=== PATIENT | female | born 1960 | race Caucasian/White ===

== ENCOUNTER 2019-04-28 12:48 | Outpatient (CLI) | payer MEDICAID, SELFPAY ==
[2019-04-28 13:16] LABS: HCT 32.5 % (36.0-46.0); HGB 9.8 g/dL (12.0-15.5); Mean Corp. HGB Concentration 30.2 g/dL (32.0-36.0); Mean Corpuscular Hemoglobin 26.5 pg (27.0-33.0); Mean Corpuscular Volume 87.8 fL (80-95); Mean Platelet Volume 10.5 fL (8.0-11.0); Platelet Count 524 x1000/uL (130-400); RBC Distribution Width 25.3 % (11.7-14.6); White Blood Cell Count 5.96 k/cumm (4.4-10.8)
[2019-04-28 13:29] LABS: Hemoglobin A1C 4.1 % (3.8-5.6)
[2019-04-28 13:36] LABS: ALT 15 U/L (14-59); AST 30 U/L (15-37); Alkaline Phosphatase 68 U/L (46-116); Anion Gap 8.4 mmol/L (3-11); BUN 11 mg/dL (7-18); Bilirubin, Total 0.4 mg/dL (0.2-1.0); CO2 37.6 mmol/L (21.0-32.0); CREATININE 0.64 mg/dL (0.55-1.02); Calcium 8.6 mg/dL (8.5-10.1); Calculated LDL 112 mg/dL; Chloride 97 mmol/L (98-107); Cholesterol 186 mg/dL (<200); Glucose 90 mg/dL (74-106); HDL Cholesterol 53 mg/dL (40-60); Sodium 143 mmol/L (136-145); Total Protein 5.9 g/dL (6.4-8.2); Triglyceride 109 mg/dL (<150)
[2019-04-28 13:40] LABS: Potassium 2.8 mmol/L (3.5-5.1)
== END 2019-04-28 13:08 ==
PROVIDERS: PCP Nurse Practitioner; Visit Provider Family Medicine
DX: R53.83 Other fatigue (principal); Z13.6 Encounter for screening for cardiovascular disorders; Z13.220 Encounter for screening for lipoid disorders; Z13.1 Encounter for screening for diabetes mellitus
CPT/HCPCS: 36415; 80053; 80061; 85027; 83036

== ENCOUNTER 2019-04-29 11:08 | Outpatient (CLI) | payer MEDICAID, SELFPAY ==
[2019-04-29 13:47] LABS: Potassium 3.5 mmol/L (3.5-5.1)
== END 2019-04-29 11:28 ==
PROVIDERS: PCP Nurse Practitioner; Visit Provider Nurse Practitioner
DX: E87.6 Hypokalemia (principal)
CPT/HCPCS: 36415; 84132

== ENCOUNTER 2019-05-03 08:04 | Emergency (ER) | payer MEDICAID, SELFPAY ==
[2019-05-03] VITALS (97 sets, daily range): BP systolic 86–236; BP diastolic 54–214; PULSE 76–214; RESP 10–38; TEMP 32.1–36.2; O2SAT 79–100
--- NOTE | 2019-05-03 08:03 | W.ED.GENAD ---
Discharge Plan Disposition Patient Disposition: [facility] Condition: Critical Discharge Details Chief Complaint: AMS/LOC Clinical Impression: Hypothermia, Hypoglycemia, Lactic acidosis, Transaminitis, History of alcohol abuse Primary Care Provider: Chapis Siddiqui ED Provider: Lanette Murillo Home Meds and New Rx's Prescriptions: No Action potassium chloride 40 mEq/15 mL liquid 40 meq PO BID Qty: 30 RF: 0 Discharge Data Discharge Date/Time-TO BE ENTERED AT DEPARTURE: 05/03/19 16:12 Medical Decision Making 0810 -- 58-year-old female with a history of alcohol abuse presents from home for possible stroke alert. She was found in a closet by her father at home with multiple alcoholic bottles around. EMS reported possible right-sided weakness. BPs 60s/50s per EMS. Patient arrived to ED lethargic and drowsy but awake. Rectal temperature 89. Bedside glucose 40. Initially had small peripheral right-sided IV and wrist, too small to give D50 so oral glucose was given and patient appeared to clinically improve, more alert. She is extremely pale, cachectic and chronically ill-appearing. Multiple attempts at IVs and eventually successful with 2 peripheral IVs. Amp of D50 given. Banana bag, D5 started. Oanh hugger placed. Patient was able to track with eyes and appeared to be moving all extremities. Full septic and stroke panel ordered. Suspect presentation most likely due to profound dehydration and poor nutrition. 0900 --repeat glucose 67. Another amp of D50 given. She is able to follow some commands. She appears to be clinically improving. CT head and chest x-ray negative. Able to fully assess and turn patient in no obvious evidence of trauma. 0940 --Case discussed with brother in waiting room and he states that patient has been a heavy drinker for 30 years. He states that his father found multiple prescription bottles of his in patient's bedroom that were empty, one being a brand-new bottle of iron. Also able to determine that the other bottles that were mostly empty were gabapentin, probiotic, atorvastatin and lisinopril. Labs reviewed and noted hemoglobin 8.8, Cr 3, was normal the other day, AST 1292, ALT 500, elevated compared to normal 5 days ago. Lactate greater than 25. 1030 --discussed with poison control -recommend checking serum osmols, toxic alcohols and to give N-acetylcysteine Discussed with patient's father and he denies any known antifreeze. Was able to confirm that the iron was ferrous glycinate, 28 mg and states that the bottle was near full and that things only 11 tabs were missing. This was discussed with poison control who stated that this type of iron is a carbohydrate type which does not carry much toxicity other than GI symptoms such as diarrhea. Do not recommend treatment with deferoxamine at this time. Poison control has stated that iron levels less than 500 or less concerning and would suspect GI symptoms so this is reassuring. 1230 --discussed with [facility] critical care -accepts patient for transfer. Would like D5W with 3 A of bicarb. Accepting physician Dr. Gaona. Patient is more awake and alert. Oriented x3. Able to follow commands. 1400 --patient oriented x3. She denies alcohol use. She states she has been taking a lot of Tylenol. She is drowsy and very slow to respond to questions but airway intact. She cannot describe how much Tylenol she has been taking or for what. 1430 --[facility] does not have a medic available. Discussed with [facility] and they will come to get patient by around 4:00. Pt remains stable prior to transfer. Medical Records Medical records reviewed: Yes I reviewed the patient's medical records. Imaging Data Radiologic Study: Radiologist's impression: CT HEAD WO CLINICAL HISTORY: AMS. AMS TECHNIQUE: Imaging Protocol: Axial computed tomography images with coronal and sagittal reformatted images were created and reviewed COMPARISON: No exams were available for comparison FINDINGS: The ventricular system is normal in appearance. No evidence of acute intracranial hemorrhage, mass effect, or midline shift. The orbital structures are unremarkable. The temporal bone structures appear intact. Calvarium: Normal. Visualized Paranasal sinuses/Mastoids: Clear. IMPRESSION: Normal cranial CT. XR CHEST 2V PA LATERAL CLINICAL HISTORY: AMS AMS TECHNIQUE: 2D digital imaging was performed. COMPARISON: No exams were available for comparison FINDINGS: The heart is not enlarged. The lungs are clear and well expanded. No pleural effusion seen. Mediastinal contours appear intact. IMPRESSION: Normal chest Lab Data Lab results reviewed: Yes I reviewed the patient's lab results. Labs: 05/03/19 15:30 Blood Blood Culture - Pending 05/03/19 15:20 Blood Blood Culture - Pending 05/03/19 10:19 Urine - Reflex from Ua Urine Culture - Pending 05/03/19 10:19 Nasopharynx Influenza Types A,B Antigen - Final Laboratory Tests Range/Units 05/03/19 05/03/19 05/03/19 08:11 08:11 08:35 WBC (4.4-10.8) k/cumm RBC (4.00-5.20) m/cumm Hgb (12.0-15.5) g/dL Hct (36.0-46.0) % MCV (80-95) fL MCH (27.0-33.0) pg MCHC (32.0-36.0) g/dL RDW (11.7-14.6) % Plt Count (130-400) x1000/uL MPV (8.0-11.0) fL Immature Gran % Neutrophils % Lymphocytes % Monocytes % Eosinophils % Basophils % Absolute Neutrophils (1.2-6.7) k/cumm Absolute Lymphocytes (1.2-3.4) k/cumm Absolute Monocytes (0.11-0.7) k/cumm Absolute Eosinophils (0.0-0.7) k/cumm Absolute Basophils (0.0-0.2) k/cumm Differential Comment RBC Morphology Hypochromasia Poikilocytosis Anisocytosis Microcytosis Shamir Cells PT (9.3-11.0) sec INR (0.9-1.1) APTT (21.0-31.4) sec VBG pH (7.32-7.43) VBG pCO2 (34-47) mm/Hg VBG pO2 (28-44) mm/Hg VBG HCO3 (22-28) mmol/L VBG Total CO2 (22-29) mmol/L VBG O2 Saturation (70-80) % VBG Base Excess (-3-3) mmol/L Sodium (136-145) mmol/L 147 H Potassium (3.5-5.1) mmol/L 3.4 L Chloride (98-107) mmol/L 100 Carbon Dioxide (21.0-32.0) mmol/L 6.7 L Anion Gap (3-11) mmol/L 40.3 H BUN (7-18) mg/dL 17 Creatinine (0.55-1.02) mg/dL 3.43 H Estimated GFR/1.73 m2 (mL/min/1.73m2) 13.68 Glucose (74-106) mg/dL 42 L Lactate (0.6-1.4) mmol/L Calcium (8.5-10.1) mg/dL 9.4 Magnesium (1.8-2.4) mg/dL 2.2 Iron (50-170) ug/dL Total Bilirubin (0.2-1.0) mg/dL 1.2 H AST (15-37) U/L 1292 H ALT (14-59) U/L 500 H Alkaline Phosphatase (46-116) U/L 88 Ammonia Cancelled Creatine Kinase (26-192) U/L Troponin I (<0.06) ng/Ml 0.05 Total Protein (6.4-8.2) g/dL 5.0 L Albumin (3.4-5.0) g/dL 2.5 L TSH (0.36-3.74) uIU/mL 7.14 H Free T4 (0.76-1.46) ng/dL 1.53 H Urine Color (Yellow) Urine Clarity (Clear) Urine pH (5-8) Ur Specific [place] (1.005-1.025) Urine Protein (Negative) mg/dL Urine Ketones (Negative) mg/dL Urine Blood (Negative) Urine Nitrite (Negative) Urine Bilirubin (Negative) Urine Urobilinogen (Up TO 0.2) EU/dL Ur Leukocyte Esterase (Negative) Urine RBC (0-2) HPF Urine WBC (0-5) HPF Ur Epithelial Cells (Negative) HPF Urine Crystals (Negative) HPF Urine Bacteria (Negative) HPF Urine Casts (Negative) LPF Urine Mucus (Negative) Urine Other (Negative) Ur Culture Indicated? Urine Glucose (Negative) mg/dL Salicylates (2.8-20.0) mg/dL Urine Opiates Screen (Negative) Urine Methadone Screen (Negative) Acetaminophen (10-30) ug/mL Ur Barbiturates Screen (Negative) Ur Tricyclics Screen (Negative) Ur Amphetamines Screen (Negative) U Benzodiazepines Scrn (Negative) Urine Cocaine Screen (Negative) Ur THC Screen (Negative) Ethyl Alcohol Cancelled Patient ABO/Rh Antibody Screen Range/Units 05/03/19 05/03/19 05/03/19 08:35 08:35 08:35 WBC (4.4-10.8) k/cumm 16.44 H RBC (4.00-5.20) m/cumm 3.25 L Hgb (12.0-15.5) g/dL 8.8 L Hct (36.0-46.0) % 30.0 L MCV (80-95) fL 92.3 MCH (27.0-33.0) pg 27.1 MCHC (32.0-36.0) g/dL 29.3 L RDW (11.7-14.6) % 24.6 H Plt Count (130-400) x1000/uL 261 D MPV (8.0-11.0) fL Immature Gran % 0.5 Neutrophils % 90.5 Lymphocytes % 5.4 Monocytes % 3.5 Eosinophils % 0.0 Basophils % 0.1 Absolute Neutrophils (1.2-6.7) k/cumm 14.88 H Absolute Lymphocytes (1.2-3.4) k/cumm 0.89 L Absolute Monocytes (0.11-0.7) k/cumm 0.58 Absolute Eosinophils (0.0-0.7) k/cumm 0.00 Absolute Basophils (0.0-0.2) k/cumm 0.02 Differential Comment Diff reviewed RBC Morphology See below Hypochromasia 2+ Poikilocytosis 3+ Anisocytosis 3+ Microcytosis 1+ [place] Cells 2+ PT (9.3-11.0) sec 20.9 H INR (0.9-1.1) 2.1 H APTT (21.0-31.4) sec 28.0 VBG pH (7.32-7.43) VBG pCO2 (34-47) mm/Hg VBG pO2 (28-44) mm/Hg VBG HCO3 (22-28) mmol/L VBG Total CO2 (22-29) mmol/L VBG O2 Saturation (70-80) % VBG Base Excess (-3-3) mmol/L Sodium (136-145) mmol/L Potassium (3.5-5.1) mmol/L Chloride (98-107) mmol/L Carbon Dioxide (21.0-32.0) mmol/L Anion Gap (3-11) mmol/L BUN (7-18) mg/dL Creatinine (0.55-1.02) mg/dL Estimated GFR/1.73 m2 (mL/min/1.73m2) Glucose (74-106) mg/dL Lactate (0.6-1.4) mmol/L > 25.0 H* Calcium (8.5-10.1) mg/dL Magnesium (1.8-2.4) mg/dL Iron (50-170) ug/dL Total Bilirubin (0.2-1.0) mg/dL AST (15-37) U/L ALT (14-59) U/L Alkaline Phosphatase (46-116) U/L Ammonia Creatine Kinase (26-192) U/L Troponin I (<0.06) ng/Ml Total Protein (6.4-8.2) g/dL Albumin (3.4-5.0) g/dL TSH (0.36-3.74) uIU/mL Free T4 (0.76-1.46) ng/dL Urine Color (Yellow) Urine Clarity (Clear) Urine pH (5-8) Ur Specific [place] (1.005-1.025) Urine Protein (Negative) mg/dL Urine Ketones (Negative) mg/dL Urine Blood (Negative) Urine Nitrite (Negative) Urine Bilirubin (Negative) Urine Urobilinogen (Up TO 0.2) EU/dL Ur Leukocyte Esterase (Negative) Urine RBC (0-2) HPF Urine WBC (0-5) HPF Ur Epithelial Cells (Negative) HPF Urine Crystals (Negative) HPF Urine Bacteria (Negative) HPF Urine Casts (Negative) LPF Urine Mucus (Negative) Urine Other (Negative) Ur Culture Indicated? Urine Glucose (Negative) mg/dL Salicylates (2.8-20.0) mg/dL Urine Opiates Screen (Negative) Urine Methadone Screen (Negative) Acetaminophen (10-30) ug/mL Ur Barbiturates Screen (Negative) Ur Tricyclics Screen (Negative) Ur Amphetamines Screen (Negative) U Benzodiazepines Scrn (Negative) Urine Cocaine Screen (Negative) Ur THC Screen (Negative) Ethyl Alcohol Patient ABO/Rh Antibody Screen Range/Units 05/03/19 05/03/19 05/03/19 08:35 08:35 08:35 WBC (4.4-10.8) k/cumm RBC (4.00-5.20) m/cumm Hgb (12.0-15.5) g/dL Hct (36.0-46.0) % MCV (80-95) fL MCH (27.0-33.0) pg MCHC (32.0-36.0) g/dL RDW (11.7-14.6) % Plt Count (130-400) x1000/uL MPV (8.0-11.0) fL Immature Gran % Neutrophils % Lymphocytes % Monocytes % Eosinophils % Basophils % Absolute Neutrophils (1.2-6.7) k/cumm Absolute Lymphocytes (1.2-3.4) k/cumm Absolute Monocytes (0.11-0.7) k/cumm Absolute Eosinophils (0.0-0.7) k/cumm Absolute Basophils (0.0-0.2) k/cumm Differential Comment RBC Morphology Hypochromasia Poikilocytosis Anisocytosis Microcytosis [place] Cells PT (9.3-11.0) sec INR (0.9-1.1) APTT (21.0-31.4) sec VBG pH (7.32-7.43) 6.98 L VBG pCO2 (34-47) mm/Hg 24 L VBG pO2 (28-44) mm/Hg 67 H VBG HCO3 (22-28) mmol/L 6 L VBG Total CO2 (22-29) mmol/L 6 L VBG O2 Saturation (70-80) % 78 VBG Base Excess (-3-3) mmol/L Sodium (136-145) mmol/L Potassium (3.5-5.1) mmol/L Chloride (98-107) mmol/L Carbon Dioxide (21.0-32.0) mmol/L Anion Gap (3-11) mmol/L BUN (7-18) mg/dL Creatinine (0.55-1.02) mg/dL Estimated GFR/1.73 m2 (mL/min/1.73m2) Glucose (74-106) mg/dL Lactate (0.6-1.4) mmol/L Calcium (8.5-10.1) mg/dL Magnesium (1.8-2.4) mg/dL Iron (50-170) ug/dL Total Bilirubin (0.2-1.0) mg/dL AST (15-37) U/L ALT (14-59) U/L Alkaline Phosphatase (46-116) U/L Ammonia Creatine Kinase (26-192) U/L Troponin I (<0.06) ng/Ml Total Protein (6.4-8.2) g/dL Albumin (3.4-5.0) g/dL TSH (0.36-3.74) uIU/mL Free T4 (0.76-1.46) ng/dL Urine Color (Yellow) Urine Clarity (Clear) Urine pH (5-8) Ur Specific [place] (1.005-1.025) Urine Protein (Negative) mg/dL Urine Ketones (Negative) mg/dL Urine Blood (Negative) Urine Nitrite (Negative) Urine Bilirubin (Negative) Urine Urobilinogen (Up TO 0.2) EU/dL Ur Leukocyte Esterase (Negative) Urine RBC (0-2) HPF Urine WBC (0-5) HPF Ur Epithelial Cells (Negative) HPF Urine Crystals (Negative) HPF Urine Bacteria (Negative) HPF Urine Casts (Negative) LPF Urine Mucus (Negative) Urine Other (Negative) Ur Culture Indicated? Urine Glucose (Negative) mg/dL Salicylates (2.8-20.0) mg/dL 4.7 Urine Opiates Screen (Negative) Urine Methadone Screen (Negative) Acetaminophen (10-30) ug/mL 18 Ur Barbiturates Screen (Negative) Ur Tricyclics Screen (Negative) Ur Amphetamines Screen (Negative) U Benzodiazepines Scrn (Negative) Urine Cocaine Screen (Negative) Ur THC Screen (Negative) Ethyl Alcohol Patient ABO/Rh A Positive Antibody Screen Negative Range/Units 05/03/19 05/03/19 05/03/19 08:35 08:35 10:19 WBC (4.4-10.8) k/cumm RBC (4.00-5.20) m/cumm Hgb (12.0-15.5) g/dL Hct (36.0-46.0) % MCV (80-95) fL MCH (27.0-33.0) pg MCHC (32.0-36.0) g/dL RDW (11.7-14.6) % Plt Count (130-400) x1000/uL MPV (8.0-11.0) fL Immature Gran % Neutrophils % Lymphocytes % Monocytes % Eosinophils % Basophils % Absolute Neutrophils (1.2-6.7) k/cumm Absolute Lymphocytes (1.2-3.4) k/cumm Absolute Monocytes (0.11-0.7) k/cumm Absolute Eosinophils (0.0-0.7) k/cumm Absolute Basophils (0.0-0.2) k/cumm Differential Comment RBC Morphology Hypochromasia Poikilocytosis Anisocytosis Microcytosis Shamir Cells PT (9.3-11.0) sec INR (0.9-1.1) APTT (21.0-31.4) sec VBG pH (7.32-7.43) VBG pCO2 (34-47) mm/Hg VBG pO2 (28-44) mm/Hg VBG HCO3 (22-28) mmol/L VBG Total CO2 (22-29) mmol/L VBG O2 Saturation (70-80) % VBG Base Excess (-3-3) mmol/L Sodium (136-145) mmol/L Potassium (3.5-5.1) mmol/L Chloride (98-107) mmol/L Carbon Dioxide (21.0-32.0) mmol/L Anion Gap (3-11) mmol/L BUN (7-18) mg/dL Creatinine (0.55-1.02) mg/dL Estimated GFR/1.73 m2 (mL/min/1.73m2) Glucose (74-106) mg/dL Lactate (0.6-1.4) mmol/L Calcium (8.5-10.1) mg/dL Magnesium (1.8-2.4) mg/dL Iron (50-170) ug/dL 225 H Total Bilirubin (0.2-1.0) mg/dL AST (15-37) U/L ALT (14-59) U/L Alkaline Phosphatase (46-116) U/L Ammonia Creatine Kinase (26-192) U/L 157 Troponin I (<0.06) ng/Ml Total Protein (6.4-8.2) g/dL Albumin (3.4-5.0) g/dL TSH (0.36-3.74) uIU/mL Free T4 (0.76-1.46) ng/dL Urine Color (Yellow) Yellow Urine Clarity (Clear) Cloudy Urine pH (5-8) 5.0 Ur Specific [place] (1.005-1.025) 1.025 Urine Protein (Negative) mg/dL 30 H Urine Ketones (Negative) mg/dL 15 H Urine Blood (Negative) Small H Urine Nitrite (Negative) Negative Urine Bilirubin (Negative) Negative Urine Urobilinogen (Up TO 0.2) EU/dL 0.2 Ur Leukocyte Esterase (Negative) Negative Urine RBC (0-2) HPF Urine WBC (0-5) HPF 10-20 H Ur Epithelial Cells (Negative) HPF Few Urine Crystals (Negative) HPF Moderate amorphous Urine Bacteria (Negative) HPF Moderate Urine Casts (Negative) LPF Comment Urine Mucus (Negative) Negative Urine Other (Negative) Few renal Ur Culture Indicated? Yes Urine Glucose (Negative) mg/dL Negative Salicylates (2.8-20.0) mg/dL Urine Opiates Screen (Negative) Urine Methadone Screen (Negative) Acetaminophen (10-30) ug/mL Ur Barbiturates Screen (Negative) Ur Tricyclics Screen (Negative) Ur Amphetamines Screen (Negative) U Benzodiazepines Scrn (Negative) Urine Cocaine Screen (Negative) Ur THC Screen (Negative) Ethyl Alcohol Patient ABO/Rh Antibody Screen Range/Units 05/03/19 05/03/19 05/03/19 10:19 11:46 11:46 WBC (4.4-10.8) k/cumm RBC (4.00-5.20) m/cumm Hgb (12.0-15.5) g/dL Hct (36.0-46.0) % MCV (80-95) fL MCH (27.0-33.0) pg MCHC (32.0-36.0) g/dL RDW (11.7-14.6) % Plt Count (130-400) x1000/uL MPV (8.0-11.0) fL Immature Gran % Neutrophils % Lymphocytes % Monocytes % Eosinophils % Basophils % Absolute Neutrophils (1.2-6.7) k/cumm Absolute Lymphocytes (1.2-3.4) k/cumm Absolute Monocytes (0.11-0.7) k/cumm Absolute Eosinophils (0.0-0.7) k/cumm Absolute Basophils (0.0-0.2) k/cumm Differential Comment RBC Morphology Hypochromasia Poikilocytosis Anisocytosis Microcytosis [place] Cells PT (9.3-11.0) sec INR (0.9-1.1) APTT (21.0-31.4) sec VBG pH (7.32-7.43) VBG pCO2 (34-47) mm/Hg VBG pO2 (28-44) mm/Hg VBG HCO3 (22-28) mmol/L VBG Total CO2 (22-29) mmol/L VBG O2 Saturation (70-80) % VBG Base Excess (-3-3) mmol/L Sodium (136-145) mmol/L 145 Potassium (3.5-5.1) mmol/L 3.6 Chloride (98-107) mmol/L 99 Carbon Dioxide (21.0-32.0) mmol/L 7.0 L Anion Gap (3-11) mmol/L 39.0 H BUN (7-18) mg/dL 17 Creatinine (0.55-1.02) mg/dL 3.10 H Estimated GFR/1.73 m2 (mL/min/1.73m2) 15.38 Glucose (74-106) mg/dL 371 H D Lactate (0.6-1.4) mmol/L Calcium (8.5-10.1) mg/dL 9.4 Magnesium (1.8-2.4) mg/dL Iron (50-170) ug/dL Total Bilirubin (0.2-1.0) mg/dL 1.3 H AST (15-37) U/L 1353 H ALT (14-59) U/L 590 H Alkaline Phosphatase (46-116) U/L 96 Ammonia Creatine Kinase (26-192) U/L Troponin I (<0.06) ng/Ml 0.08 H* Total Protein (6.4-8.2) g/dL 5.1 L Albumin (3.4-5.0) g/dL 2.6 L TSH (0.36-3.74) uIU/mL Free T4 (0.76-1.46) ng/dL Urine Color (Yellow) Urine Clarity (Clear) Urine pH (5-8) Ur Specific [place] (1.005-1.025) Urine Protein (Negative) mg/dL Urine Ketones (Negative) mg/dL Urine Blood (Negative) Urine Nitrite (Negative) Urine Bilirubin (Negative) Urine Urobilinogen (Up TO 0.2) EU/dL Ur Leukocyte Esterase (Negative) Urine RBC (0-2) HPF Urine WBC (0-5) HPF Ur Epithelial Cells (Negative) HPF Urine Crystals (Negative) HPF Urine Bacteria (Negative) HPF Urine Casts (Negative) LPF Urine Mucus (Negative) Urine Other (Negative) Ur Culture Indicated? Urine Glucose (Negative) mg/dL Salicylates (2.8-20.0) mg/dL Urine Opiates Screen (Negative) Negative Urine Methadone Screen (Negative) Negative Acetaminophen (10-30) ug/mL Ur Barbiturates Screen (Negative) Negative Ur Tricyclics Screen (Negative) Negative Ur Amphetamines Screen (Negative) Negative U Benzodiazepines Scrn (Negative) Positive A Urine Cocaine Screen (Negative) Negative Ur THC Screen (Negative) Negative Ethyl Alcohol Patient ABO/Rh Antibody Screen Range/Units 05/03/19 05/03/19 05/03/19 11:46 11:46 11:46 WBC (4.4-10.8) k/cumm RBC (4.00-5.20) m/cumm Hgb (12.0-15.5) g/dL Hct (36.0-46.0) % MCV (80-95) fL MCH (27.0-33.0) pg MCHC (32.0-36.0) g/dL RDW (11.7-14.6) % Plt Count (130-400) x1000/uL MPV (8.0-11.0) fL Immature Gran % Neutrophils % Lymphocytes % Monocytes % Eosinophils % Basophils % Absolute Neutrophils (1.2-6.7) k/cumm Absolute Lymphocytes (1.2-3.4) k/cumm Absolute Monocytes (0.11-0.7) k/cumm Absolute Eosinophils (0.0-0.7) k/cumm Absolute Basophils (0.0-0.2) k/cumm Differential Comment RBC Morphology Hypochromasia Poikilocytosis Anisocytosis Microcytosis Sham[place] Cells PT (9.3-11.0) sec INR (0.9-1.1) APTT (21.0-31.4) sec VBG pH (7.32-7.43) VBG pCO2 (34-47) mm/Hg VBG pO2 (28-44) mm/Hg VBG HCO3 (22-28) mmol/L VBG Total CO2 (22-29) mmol/L VBG O2 Saturation (70-80) % VBG Base Excess (-3-3) mmol/L Sodium (136-145) mmol/L Potassium (3.5-5.1) mmol/L Chloride (98-107) mmol/L Carbon Dioxide (21.0-32.0) mmol/L Anion Gap (3-11) mmol/L BUN (7-18) mg/dL Creatinine (0.55-1.02) mg/dL Estimated GFR/1.73 m2 (mL/min/1.73m2) Glucose (74-106) mg/dL Lactate (0.6-1.4) mmol/L > 25.0 H* Calcium (8.5-10.1) mg/dL Magnesium (1.8-2.4) mg/dL Iron (50-170) ug/dL Total Bilirubin (0.2-1.0) mg/dL AST (15-37) U/L ALT (14-59) U/L Alkaline Phosphatase (46-116) U/L Ammonia 22 Creatine Kinase (26-192) U/L Troponin I (<0.06) ng/Ml Total Protein (6.4-8.2) g/dL Albumin (3.4-5.0) g/dL TSH (0.36-3.74) uIU/mL Free T4 (0.76-1.46) ng/dL Urine Color (Yellow) Urine Clarity (Clear) Urine pH (5-8) Ur Specific [place] (1.005-1.025) Urine Protein (Negative) mg/dL Urine Ketones (Negative) mg/dL Urine Blood (Negative) Urine Nitrite (Negative) Urine Bilirubin (Negative) Urine Urobilinogen (Up TO 0.2) EU/dL Ur Leukocyte Esterase (Negative) Urine RBC (0-2) HPF Urine WBC (0-5) HPF Ur Epithelial Cells (Negative) HPF Urine Crystals (Negative) HPF Urine Bacteria (Negative) HPF Urine Casts (Negative) LPF Urine Mucus (Negative) Urine Other (Negative) Ur Culture Indicated? Urine Glucose (Negative) mg/dL Salicylates (2.8-20.0) mg/dL Urine Opiates Screen (Negative) Urine Methadone Screen (Negative) Acetaminophen (10-30) ug/mL Ur Barbiturates Screen (Negative) Ur Tricyclics Screen (Negative) Ur Amphetamines Screen (Negative) U Benzodiazepines Scrn (Negative) Urine Cocaine Screen (Negative) Ur THC Screen (Negative) Ethyl Alcohol < 3.0 Patient ABO/Rh Antibody Screen Range/Units 05/03/19 05/03/19 13:14 13:14 WBC (4.4-10.8) k/cumm RBC (4.00-5.20) m/cumm Hgb (12.0-15.5) g/dL Hct (36.0-46.0) % MCV (80-95) fL MCH (27.0-33.0) pg MCHC (32.0-36.0) g/dL RDW (11.7-14.6) % Plt Count (130-400) x1000/uL MPV (8.0-11.0) fL Immature Gran % Neutrophils % Lymphocytes % Monocytes % Eosinophils % Basophils % Absolute Neutrophils (1.2-6.7) k/cumm Absolute Lymphocytes (1.2-3.4) k/cumm Absolute Monocytes (0.11-0.7) k/cumm Absolute Eosinophils (0.0-0.7) k/cumm Absolute Basophils (0.0-0.2) k/cumm Differential Comment RBC Morphology Hypochromasia Poikilocytosis Anisocytosis Microcytosis [place] Cells PT (9.3-11.0) sec INR (0.9-1.1) APTT (21.0-31.4) sec VBG pH (7.32-7.43) 7.12 L VBG pCO2 (34-47) mm/Hg 20 L VBG pO2 (28-44) mm/Hg 59 H VBG HCO3 (22-28) mmol/L 7 L VBG Total CO2 (22-29) mmol/L 7 L VBG O2 Saturation (70-80) % 80 VBG Base Excess (-3-3) mmol/L Sodium (136-145) mmol/L Potassium (3.5-5.1) mmol/L Chloride (98-107) mmol/L Carbon Dioxide (21.0-32.0) mmol/L Anion Gap (3-11) mmol/L BUN (7-18) mg/dL Creatinine (0.55-1.02) mg/dL Estimated GFR/1.73 m2 (mL/min/1.73m2) Glucose (74-106) mg/dL Lactate (0.6-1.4) mmol/L Calcium (8.5-10.1) mg/dL Magnesium (1.8-2.4) mg/dL Iron (50-170) ug/dL 216 H Total Bilirubin (0.2-1.0) mg/dL AST (15-37) U/L ALT (14-59) U/L Alkaline Phosphatase (46-116) U/L Ammonia Creatine Kinase (26-192) U/L Troponin I (<0.06) ng/Ml Total Protein (6.4-8.2) g/dL Albumin (3.4-5.0) g/dL TSH (0.36-3.74) uIU/mL Free T4 (0.76-1.46) ng/dL Urine Color (Yellow) Urine Clarity (Clear) Urine pH (5-8) Ur Specific [place] (1.005-1.025) Urine Protein (Negative) mg/dL Urine Ketones (Negative) mg/dL Urine Blood (Negative) Urine Nitrite (Negative) Urine Bilirubin (Negative) Urine Urobilinogen (Up TO 0.2) EU/dL Ur Leukocyte Esterase (Negative) Urine RBC (0-2) HPF Urine WBC (0-5) HPF Ur Epithelial Cells (Negative) HPF Urine Crystals (Negative) HPF Urine Bacteria (Negative) HPF Urine Casts (Negative) LPF Urine Mucus (Negative) Urine Other (Negative) Ur Culture Indicated? Urine Glucose (Negative) mg/dL Salicylates (2.8-20.0) mg/dL Urine Opiates Screen (Negative) Urine Methadone Screen (Negative) Acetaminophen (10-30) ug/mL Ur Barbiturates Screen (Negative) Ur Tricyclics Screen (Negative) Ur Amphetamines Screen (Negative) U Benzodiazepines Scrn (Negative) Urine Cocaine Screen (Negative) Ur THC Screen (Negative) Ethyl Alcohol Patient ABO/Rh Antibody Screen HPI General Mode of arrival: EMS. Date/Time Provider Initiated Documentation: 05/03/19 08:29. Limitations to Documentation: altered mental status and physical limitation. Information obtained by: EMS. HPI Narrative: Patient is a 58-year-old female with a history of alcohol abuse who presents for possible stroke alert from home. Per EMS, patient was found by her father in her closet with multiple alcohol bottles around. Unknown last normal. EMS noted hypotension with 60s/50s in route. It was reported that patient had right-sided weakness. Related Data Home Medications Medication Instructions Recorded Confirmed potassium chloride 40 mEq/15 mL 40 meq PO BID #30 ml 04/28/19 05/03/19 oral liquid Previous Rx's Medication Instructions Recorded potassium chloride 40 mEq/15 mL 40 meq PO BID #30 ml 04/28/19 oral liquid Allergies Allergy/AdvReac Type Severity Reaction Status Date / Time No Known Allergies Allergy Verified 05/03/19 10:47 Review of Systems Unobtainable due to mental status [facility], [facility] Medical History (Updated 05/03/19 @ 09:04 by Lanette Murillo DO) History of ETOH abuse (Inactive) Poor appetite (Inactive) Tobacco dependence (Inactive) Weight loss (Inactive) Surgical History No significant past surgical history (Acute) Family History Mother Diabetes Heart disease Hyperlipidemia Stroke Father Diabetes Heart disease Hyperlipidemia Brother Diabetes Heart disease Hyperlipidemia Grandfather No problems noted. Grandfather No problems noted. Grandmother No problems noted. Grandmother No problems noted. Social History Smoking/Tobacco Use Status: Current every day Tobacco Type: cigarettes Smoking packs per day: 2 Smoking cigarettes per day: 40.0 Alcohol Intake: current Alcohol Intake frequency: 3 or more drinks per day Drug use: Never Substance use type: does not use Exam Const General: cooperative, frail appearing and ill appearing chronically Orientation: awake, confused and other (drowsy) HENMT Head: normal to inspection Ears: hearing grossly normal bilaterally and external ears normal General nose exam: external nose normal Face and sinus: normal facial exam Mouth: mucous membranes dry Eyes General: appearance normal, both eyes and all related structures Eyelids: eyelids normal Pupils: PERRL EOM: EOM intact bilaterally Neck Neck: normal visual inspection Chest Chest: normal inspection of the chest Resp Effort & Inspection: normal respiratory effort and able to speak in complete sentences Auscultation: clear to auscultation bilaterally Cardio Rate: tachycardic Rhythm: regular rhythm GI Inspection: normal to inspection Palpation: soft, not firm, no guarding, no hepatosplenomegaly, no masses and nontender Auscultation: normal bowel sounds Skin General skin exam: no rashes or lesions noted Neuro General: awake and moves all extremities Extrem General: normal to inspection, full ROM and normal capillary refill Psych Appearance: grossly normal Mental Status: mental status grossly normal Speech and Movement: speech and movement normal Affect: normal affect Thought Process: normal Critical Care Time Critical Care Time Total Critical Care Time: 240 Attestation: I spent 240 minutes of critical care time with this patient. This does not include time spent on separately reported billable procedures.
[2019-05-03] MEDS: Normal Saline 1,000 ML 1000 ML IV (08:33)
[2019-05-03 08:51] LABS: HCO3 (Venous) 6 mmol/L (22-28); O2 Sat (Venous) 78 % (70-80); TCO2 (Venous) 6 mmol/L (22-29); pCO2 (Venous) 24 mm/Hg (34-47); pO2 (Venous) 67 mm/Hg (28-44)
[2019-05-03 08:53] LABS: Abs Immature Grans 0.09 k/cumm (0.0-0.09); Absolute Lymphocyte Count 0.89 k/cumm (1.2-3.4); Absolute Monocyte Count 0.58 k/cumm (0.11-0.7); Basophils % 0.1; HGB 8.8 g/dL (12.0-15.5); Immature Grans % 0.5; Lymphocytes % 5.4; Mean Corp. HGB Concentration 29.3 g/dL (32.0-36.0); Mean Corpuscular Hemoglobin 27.1 pg (27.0-33.0); Mean Corpuscular Volume 92.3 fL (80-95); Monocytes % 3.5; RBC 3.25 m/cumm (4.00-5.20); RBC Distribution Width 24.6 % (11.7-14.6); White Blood Cell Count 16.44 k/cumm (4.4-10.8)
--- NOTE | 2019-05-03 08:57 | DI.CT_ITS ---
EXAM: CT HEAD WO CT HEAD WO CLINICAL HISTORY: AMS. AMS TECHNIQUE: Imaging Protocol: Axial computed tomography images with coronal and sagittal reformatted images were created and reviewed COMPARISON: No exams were available for comparison FINDINGS: The ventricular system is normal in appearance. No evidence of acute intracranial hemorrhage, mass effect, or midline shift. The orbital structures are unremarkable. The temporal bone structures appear intact. Calvarium: Normal. Visualized Paranasal sinuses/Mastoids: Clear. IMPRESSION: Normal cranial CT. DATA REPOSITORY: All CT scans at this facility are submitted to the National Radiology Data Registry (NRDR) Dose Index Registry (DIR) with the [employer] (ACR). RADIATION OPTIMIZATION: All CT scans at this facility use at least one of these dose optimization te chniques: automated exposure control; mA and/or kV adjustment per patient size (includes targeted exa ms where dose is matched to clinical indication); or iterative reconstruction.
[2019-05-03 09:00] LABS: pH (Venous) 6.98 (7.32-7.43)
--- NOTE | 2019-05-03 09:00 | DI.RAD_ITS ---
EXAM: XR CHEST 2V PA LATERAL XR CHEST 2V PA LATERAL CLINICAL HISTORY: AMS AMS TECHNIQUE: 2D digital imaging was performed. COMPARISON: No exams were available for comparison FINDINGS: The heart is not enlarged. The lungs are clear and well expanded. No pleural effusion seen. Mediastin al contours appear intact. IMPRESSION: Normal chest
[2019-05-03 09:02] LABS: Lactate > 25.0 mmol/L (0.6-1.4)
[2019-05-03 09:03] LABS: Absolute Basophil Count 0.02 k/cumm (0.0-0.2); Absolute Neutrophil Count 14.88 k/cumm (1.2-6.7)
[2019-05-03 09:11] LABS: INR 2.1 (0.9-1.1); Prothrombin Time 20.9 sec (9.3-11.0)
[2019-05-03 09:13] LABS: Neutrophils % 90.5; Platelet Count 261 x1000/uL (130-400)
[2019-05-03] MEDS: MAGNESIUM SULFATE 8.12 MEQ, MULTIVITAMIN 10 ML, THIAMINE 100 MG, FOLIC ACID 1 MG in Nor... 168.867 MG IV (09:13)
[2019-05-03 09:14] LABS: Anisocytosis 3+; Burr Cells (echinocyte) 2+; Diff Comment Diff Reviewed; Hypochromasia 2+; Microcytosis 1+
[2019-05-03 09:15] LABS: Poikilocytes 3+
--- NOTE | 2019-05-03 09:16 | NUR.NOTE ---
08:03 Patient arrives via rescue pale, lethargic and skin cold to touch. Placed on monitor showing sinus tach with PAC's. Unsure last known well. Patient not speaking, but moaning. 20 G IV started in right wrist by Chichi Braxton RN. 08:13 rectal temp obtained 89.7 F Oanh hugger placed on high. Pupils 2mm and non-reactive. POC glucose 47 rechecked and found to be 41 oral glucose given and D5 normal saline started at 125cc/hr as per Dr. Murillo. 18 G IV started upper left arm by Dr. Murillo with use of ultrasound. 08:43 Amp D50 given IV by Chichi Braxton RN as per verbal order Dr. Murillo. Patient returned from CT. Placed back on Oanh Hugger. 09:15 Blood glucose 67 second amp D50 given By sign writer hand per verbal order Dr. Murillo. 09:25 Temp recheck 97.2 rectal. Care taken over by Chichi Braxton RN.
[2019-05-03 09:33] LABS: Albumin 2.5 g/dL (3.4-5.0); Alkaline Phosphatase 88 U/L (46-116); Anion Gap 40.3 mmol/L (3-11); BUN 17 mg/dL (7-18); Bilirubin, Total 1.2 mg/dL (0.2-1.0); CO2 6.7 mmol/L (21.0-32.0); CREATININE 3.43 mg/dL (0.55-1.02); Calcium 9.4 mg/dL (8.5-10.1); Chloride 100 mmol/L (98-107); Estimated GFR 13.68 (mL/min/1.73m2); Glucose 42 mg/dL (74-106); Magnesium 2.2 mg/dL (1.8-2.4); Potassium 3.4 mmol/L (3.5-5.1); Sodium 147 mmol/L (136-145); TSH (W/Ref FT4) 7.14 uIU/mL (0.36-3.74); Troponin I 0.05 ng/Ml (<0.06)
[2019-05-03 09:36] LABS: AST 1292 U/L (15-37)
--- NOTE | 2019-05-03 09:43 | NUR.NOTE ---
1st note documented at 0828 hours at 41 bgl not at 0928 crf
[2019-05-03] MEDS: DEXTROSE 5%-LACTATED RINGERS 1,000 ML 100 ML IV (09:58)
[2019-05-03 10:14] LABS: FREE T4 1.53 ng/dL (0.76-1.46)
[2019-05-03] MEDS: LORazepam 2 MG/ML VIAL 0.5 MG IVP (10:22)
[2019-05-03 10:25] LABS: Acetaminophen 18 ug/mL (10-30); Iron 225 ug/dL (50-170); Salicylate 4.7 mg/dL (2.8-20.0)
[2019-05-03 10:30] LABS: ALT 500 U/L (14-59)
[2019-05-03 10:36] LABS: Bilirubin Negative (Negative); Blood Small (Negative); Clarity Cloudy (Clear); Glucose Negative (Negative); Ketones 15 mg/dL (Negative); Leukocyte Esterase Negative (Negative); Nitrite Negative (Negative); Specific Gravity 1.025 (1.005-1.025); Urobilinogen 0.2 EU/dL (Up TO 0.2)
[2019-05-03 10:54] LABS: Bacteria Moderate HPF (Negative); Crystals Moderate Amorphous HPF (Negative); Epithelial Cells Few HPF (Negative); Mucus Negative (Negative); Other Cells Few Renal (Negative)
[2019-05-03 10:55] LABS: C & S Indicated? Yes
[2019-05-03 11:06] LABS: *AMPHETAMINES SCREEN URINE Negative (Negative); *BARBITURATES SCREEN URINE Negative (Negative); *BENZODIAZEPINES SCREEN URINE POSITIVE (Negative); Cannabinoids THC Negative (Negative); Cocaine Screen,Urine Negative (Negative); METHADONE URINE SCREEN Negative (Negative); OPIATES URINE SCREEN Negative (Negative)
[2019-05-03 11:09] LABS: Tricyclic Antidepressants Negative (Negative)
[2019-05-03 11:52] LABS: Creatine Kinase 157 U/L (26-192)
[2019-05-03 12:05] LABS: Lactate > 25.0 mmol/L (0.6-1.4)
[2019-05-03 12:36] LABS: Albumin 2.6 g/dL (3.4-5.0); Alkaline Phosphatase 96 U/L (46-116); BUN 17 mg/dL (7-18); Bilirubin, Total 1.3 mg/dL (0.2-1.0); Calcium 9.4 mg/dL (8.5-10.1); Chloride 99 mmol/L (98-107); Estimated GFR 15.38 (mL/min/1.73m2); Glucose 371 mg/dL (74-106); Potassium 3.6 mmol/L (3.5-5.1); Sodium 145 mmol/L (136-145); Total Protein 5.1 g/dL (6.4-8.2)
[2019-05-03 12:43] LABS: Ammonia 22 umol/L (11-32)
[2019-05-03 12:44] LABS: ETHANOL BLOOD < 3.0 mg/dL (<3)
[2019-05-03 12:45] LABS: AST 1353 U/L (15-37)
[2019-05-03 12:48] LABS: Troponin I 0.08 ng/Ml (<0.06)
[2019-05-03 12:51] LABS: ALT 590 U/L (14-59)
--- NOTE | 2019-05-03 13:12 | DI.RAD_ITS ---
EXAM: XR ABDOMEN FLAT UPRIGHT CLINICAL HISTORY: assess for iron/radioopaque substance TECHNIQUE: COMPARISON: No exams were available for comparison FINDINGS: Four views were obtained. Bowel gas pattern is unremarkable. No metallic foreign body or ingested material identified. IMPRESSION:
[2019-05-03 13:22] LABS: HCO3 (Venous) 7 mmol/L (22-28); O2 Sat (Venous) 80 % (70-80); TCO2 (Venous) 7 mmol/L (22-29); pCO2 (Venous) 20 mm/Hg (34-47); pH (Venous) 7.12 (7.32-7.43); pO2 (Venous) 59 mm/Hg (28-44)
[2019-05-03] MEDS: MAGNESIUM SULFATE 8.12 MEQ, MULTIVITAMIN 10 ML, THIAMINE 100 MG, FOLIC ACID 1 MG in Nor... 167 MG IV (13:31)
[2019-05-03] MEDS: SODIUM BICARBONATE 150 MEQ in DEXTROSE 5%-WATER 850 ML 100 MEQ IV (13:36)
[2019-05-03] MEDS: Lactated Ringers 1,000 ML 1000 ML IV ×2 (13:40→15:44)
[2019-05-03 13:49] LABS: Iron 216 ug/dL (50-170)
--- NOTE | 2019-05-03 23:28 | DI.RAD_ITS ---
EXAM: XR PORTABLE CHEST AP CLINICAL HISTORY: assess R IJ line TECHNIQUE: COMPARISON: XR CHEST 2V PA LATERAL from 05/03/2019 FINDINGS: There is an apparent internal jugular catheter the tip of which overlies the superior vena cava. He art is not enlarged. The lungs are clear and normally expanded. IMPRESSION: No evidence of acute process.
[2019-05-04 03:50] LABS: Ethanol None Detected ((See Note)); Isopropanol <5 mg/dL (<5)
[2019-05-04 11:54] LABS: Osmolality Serum 304 mOsm/kg (275-295)
[2019-05-05 08:51] LABS: Acetone Detected ((See Note))
--- NOTE | 2019-05-08 18:13 | NUR.NOTE ---
Patient transferred to [address] Final blood culture result faxed to [phone] Note:
== END 2019-05-03 16:12 | disposition short-term general hospital (02) ==
PROVIDERS: Physician Assistant; Emergency Provider Physician Assistant; PCP Nurse Practitioner
DX: T68.XXXA Hypothermia, initial encounter (principal); X31.XXXA Exposure to excessive natural cold, initial encounter; E16.2 Hypoglycemia, unspecified; R64 Cachexia; G81.91 Hemiplegia, unspecified affecting right dominant side; E87.2 Acidosis; R74.0 Nonspecific elevation of levels of transaminase and lactic acid dehydrogenase [LDH]; F10.20 Alcohol dependence, uncomplicated
CPT/HCPCS: 36410; 36415; 36416; 51702; 80053; 80307; 82550; 82805; 82962; 86850; 86900; 86901; 87040; 87449; 93005; 96361; 96365; 96366; 96368; 99291; 99292; 36010; 70450; 71045; 71046; 74019; 80320; 80329; 81003; 81015; 82140; 83540; 83605; 83735; 83930; 84439; 84443; 84484; 84600; 85025; 85610; 85730; 87086; 93010; J0132; J2060; J7060

== ENCOUNTER 2019-07-01 10:36 | Emergency (ER) | payer MEDICAID, SELFPAY ==
[2019-07-01 10:39] VITALS: BP 110/69; PULSE 104; RESP 18; TEMP 37.1; O2SAT 97
--- NOTE | 2019-07-01 11:02 | ED.GENADUL_ITS ---
Discharge Plan Disposition Patient Disposition: HOME Condition: Stable Discharge Details Chief Complaint: GenMedical Clinical Impression: Neck pain, Falls Primary Care Provider: Chapis Siddiqui ED Provider: Romero Seth Home Meds and New Rx's Prescriptions: Continued carvedilol 6.25 mg tablet 6.25 mg PO BID RF: 0 duloxetine 60 mg capsule,delayed release(DR/EC) 60 mg PO DAILY RF: 0 folic acid 1 mg tablet 1 mg PO DAILY RF: 0 melatonin 3 mg tablet 3 mg PO HS PRNRF: 0 mirtazapine 7.5 mg tablet 7.5 mg PO QHS RF: 0 uizoyauw-vrql-EZ-calcium-mins 9 mg iron-400 mcg tablet 1 tab PO DAILY RF: 0 thiamine HCl (vitamin B1) 100 mg tablet 100 mg PO DAILY RF: 0 quetiapine 50 mg tablet 50 mg PO DAILY Qty: 30 RF: 11 Discharge Instructions Instructions: Fall Prevention (ED) Additional Instructions: follow up with your primary care provider within 1-2 weeks if you develop severe worsening pain, fevers, or difficulty breathing or feel more ill return to the emergency department Medical Decision Making 58 yo female with former alcohol use disorder, htn, who was hospitalized at [facility] for multiple weeks s/p tylenol overdose and alcohol overdose and went home 2 weeks ago and comes in today with mild posterior head pain and left lateral neck pain after several falls where she states she tripped. Denies presyncope symptoms such as dizzy/lightheaded, chest pain, headaches prior to falling, shortness of breath. She has no significant traumatic findingson exam, full rom of the extremities. Given her fall and head/neck pain will image head and c spine. She states she gets home health and doesn't want inpatient rehab at this time no acute findings per Dr. Cornell on imaging, remains stable and well with no midline neck pain and no numbness on exam or weakness in the arms or legs. Will d/c home and have her f/u with pcp, return precautions given Differential Diagnosis Differential Diagnosis: deconditioning, orthostasis, mechanical fall, syncope Imaging Data Radiologic Study: Attestation: I personally reviewed and interpreted this imaging study as follows: Imaging: CT Scan Radiologist's impression: no acute findings HPI General Mode of arrival: wheelchair . Date/Time Provider Initiated Documentation: 07/01/19 10:37 . Limitations to Documentation: no limitations . Information obtained by: patient . History of Present Illness 58 year old F presents to the emergency department with the chief complaint of head and neck pain, described as mild, Quality is described as aching, and it has been constant. No relieving factors improve symptom(s), No exacerbating factors reported . Patient did receive the following treatments prior to arrival, none Related Data Home Medications Medication Instructions Recorded Confirmed carvedilol 6.25 mg tablet 6.25 mg PO BID 06/23/19 06/23/19 duloxetine 60 mg capsule,delayed 60 mg PO DAILY 06/23/19 06/23/19 release folic acid 1 mg tablet 1 mg PO DAILY 06/23/19 06/23/19 melatonin 3 mg tablet 3 mg PO HS PRN 06/23/19 06/23/19 mirtazapine 7.5 mg tablet 7.5 mg PO QHS 06/23/19 06/23/19 multivitamin-iron 9 mg-folic acid 1 tab PO DAILY 06/23/19 06/23/19 400 mcg-calcium and minerals tablet quetiapine 50 mg tablet 50 mg PO DAILY #30 tab 06/23/19 06/23/19 thiamine HCl (vitamin B1) 100 mg 100 mg PO DAILY 06/23/19 06/23/19 tablet Previous Rx's Medication Instructions Recorded quetiapine 50 mg tablet 50 mg PO DAILY #30 tab 06/23/19 Allergies Allergy/AdvReac Type Severity Reaction Status Date / Time No Known Allergies Allergy Verified 06/23/19 13:01 General Stated Complaint: GenMedical LILIYA: 3 Review of Systems All systems reviewed & are unremarkable except as noted in HPI and below Constitutional Constitutional: Denies chills and Denies fever(s) Cardiovascular Cardiovascular: Denies chest pain and Denies dyspnea Respiratory Respiratory: Denies cough and Denies dyspnea Gastrointestinal Gastrointestinal: Denies abdominal pain, Denies nausea and Denies vomiting Musculoskeletal Musculoskeletal: Denies joint swelling Psychiatric Psychiatric: Denies depression [facility] Medical History (Updated 07/01/19 @ 11:40 by Romero Seth MD) History of ETOH abuse (Inactive) Poor appetite (Inactive) Tobacco dependence (Inactive) Weight loss (Inactive) Social History Smoking/Tobacco Use Status: Current every day Tobacco Type: cigarettes Smoking packs per day: 2 Smoking cigarettes per day: 40.0 Alcohol Intake: current Alcohol Intake frequency: 3 or more drinks per day Drug use: Never Substance use type: does not use Do you feel safe at home: Yes Exam Const General: no acute distress Orientation: alert HENMT Head: normal to inspection Ears: external ears normal General nose exam: external nose normal Mouth: moist mucous membranes Eyes General: appearance normal, both eyes and all related structures Neck Neck: normal visual inspection Resp Effort & Inspection: normal respiratory effort and able to speak in complete sentences Cardio Rate: regular rate Skin General skin exam: no rashes or lesions noted Neuro General: alert and oriented x3 Extrem General: normal to inspection Psych Mental Status: mental status grossly normal Course Vital Signs Vital signs: Vital Signs Temperature 37.1 C 07/01/19 10:39 Pulse 104 H 07/01/19 10:39 Respiratory Rate 18 07/01/19 10:39 Blood Pressure 110/69 07/01/19 10:39 Pulse Oximetry 97 07/01/19 10:39 Temperature 37.1 C 07/01/19 10:39 Temperature Source Skin 07/01/19 10:39 Pulse 104 H 07/01/19 10:39 Respiratory Rate 18 07/01/19 10:39 Respiratory Effort 07/01/19 10:44 Blood Pressure 110/69 07/01/19 10:39 Blood Pressure Position Sitting 07/01/19 10:39 Pulse Oximetry 97 07/01/19 10:39 Oxygen Delivery Method Room Air 07/01/19 10:39 Oxygen Flow Rate 0 07/01/19 10:39 Pain Level 6 07/01/19 10:39
[2019-07-01 11:11] VITALS: RESP 14
--- NOTE | 2019-07-01 11:21 | DI.CT_ITS ---
EXAM: CT HEAD CERVICAL SPINE WO CLINICAL HISTORY: pain s/p fall TECHNIQUE: Noncontrast COMPARISON: CT HEAD WO from 05/03/2019 FINDINGS: Head CT: No intracranial hemorrhage, mass or infarct is seen. There is no evidence of skull fractu re. The ventricles are normal in size. The sinuses and mastoid air cells appear clear. The orbits are unremarkable as visualized. There has been no change from the previous exam. C-spine CT: No evidence of fracture or subluxation. Degenerative disc changes are seen at C5-6 and C 6-7. The airway appears intact. Mild emphysematous changes are seen at the lung apices. No pneumot horax is seen. IMPRESSION: No acute abnormality in the head or cervical spine.
== END 2019-07-01 11:52 | disposition home or self-care (01) ==
PROVIDERS: Emergency Provider Emergency Medicine; PCP Nurse Practitioner
DX: M54.2 Cervicalgia (principal); R29.6 Repeated falls; I10 Essential (primary) hypertension
CPT/HCPCS: 99284; 70450; 72125

== ENCOUNTER 2019-12-08 19:02 | Outpatient (REF) | payer MEDICAID, SELFPAY ==
[2019-12-08 19:22] LABS: HCT 36.3 % (36.0-46.0); HGB 11.9 g/dL (11.2-15.7); MCH 29.5 pg (27.0-33.0); MCHC 32.8 % (32.0-36.0); MCV 89.9 fL (80-95); MPV 10.2 fL (8.0-11.0); Platelet Count 320 10^3/uL (130-400); RBC 4.04 10^6/uL (3.93-5.22); RDW-SD 42.1 fL; WBC 8.86 10^3/uL (4.4-10.8)
[2019-12-08 19:43] LABS: ALT 19 U/L (14-59); AST 14 U/L (15-37); Albumin 3.3 g/dL (3.4-5.0); Alkaline Phosphatase 113 U/L (46-116); BUN 6 mg/dL (7-18); Bilirubin, Total 0.2 mg/dL (0.2-1.0); CREATININE 0.64 mg/dL (0.55-1.02); Calcium 8.4 mg/dL (8.5-10.1); Chloride 103 mmol/L (98-107); Glucose 77 mg/dL (74-106); Potassium 3.6 mmol/L (3.5-5.1); Sodium 142 mmol/L (136-145); TSH 18.63 uIU/mL (0.36-3.74); Total Protein 6.4 g/dL (6.4-8.2)
== END 2019-12-08 19:22 ==
LOC: LBN 19:02
PROVIDERS: PCP Nurse Practitioner; Visit Provider Nurse Practitioner
DX: I10 Essential (primary) hypertension (principal); D64.9 Anemia, unspecified; R79.89 Other specified abnormal findings of blood chemistry
CPT/HCPCS: 80053; 85027; 84443

== ENCOUNTER 2019-12-11 14:27 | Outpatient (REF) | payer MEDICAID, SELFPAY ==
[2019-12-13 11:16] LABS: Campylobacter PCR Negative (Negative); Salmonella PCR Negative (Negative); Shiga Toxin PCR Negative (Negative); Shigella/Enteroinvasive Ecoli Negative (Negative)
== END 2019-12-11 14:47 ==
LOC: LBN 14:27
PROVIDERS: PCP Nurse Practitioner; Visit Provider Nurse Practitioner
DX: R19.7 Diarrhea, unspecified (principal)
CPT/HCPCS: 87505; 87324

== ENCOUNTER 2020-01-30 01:28 | Outpatient (CLI) | payer MEDICAID, SELFPAY ==
--- NOTE | 2020-01-30 08:00 | DI.MAMMO_ITS ---
EXAM: MAMMO SCREENING CLINICAL HISTORY: screening,Z12.39 TECHNIQUE: Mammograms were interpreted according to the usual protocol including computer analysis w [employer] CAD system, tomosynthesis and C-view imaging. COMPARISON: 2009 FINDINGS: The breasts are composed of heterogeneously dense fibroglandular densities, Breast Density category C . No suspicious masses or suspicious microcalcifications are seen. No skin thickening or abnormal axillary lymph nodes are seen. There has been no significant change from prior exams. IMPRESSION: BI-RADS Category 1: Negative mammogram Yearly screening mammography is recommended. Breast Density - Category C, heterogeneously dense tissue which decreases the sensitivity of the mamm ogram. The mammogram demonstrates the patient's breast tissue is dense. Dense breast tissue is very common a nd is not abnormal but dense breast tissue can make it harder to find cancer on a mammogram. Also, de nse breast tissue may increase breast cancer risk. This information about the result of the mammogram report was provided to the patient to raise their awareness. Use this report when you speak with the patient about their risks for breast cancer, which includes their family history. At that time, you may recommend additional screening tests (Ultrasound or MRI) as they might be useful based on their r isk. A negative radiographic report should not delay biopsy if a dominant or clinically suspicious mass is present. Up to ten percent of cancers are not identified on mammography. A negative report may reinforce clinical impression. Adenosis and dense breasts may obscure an underlying neoplasm. False positive reports average 6 to 10%.
--- NOTE | 2020-01-30 11:04 | DI.CTLCSR_ITS ---
EXAM: CT CHEST LUNG CANCER SCREEN CLINICAL HISTORY: Screening for lung cancer,CURRENT SMOKER,F17.210 TECHNIQUE: Imaging Protocol: Axial computed tomography images with coronal and sagittal reformatted images were created and reviewed COMPARISON: CR XR PORTABLE CHEST AP from 05/03/2019 FINDINGS: Tracheobronchial tree: Patent where visualized. Mediastinum and Ariane: No dominant adenopathy or fluid collection. Pulmonary parenchyma: No consolidation or dominant measurable mass. Mild apical scarring and moderate emphysematous changes. Lung Nodules: None. Pleura: No effusion or pneumothorax. Heart: The heart is not dilated. Mild coronary artery calcifications are seen. Aorta: Thoracic aorta non-dilated. Upper abdomen: Gallstones Bones: Within normal limits. Soft Tissues: Unremarkable. IMPRESSION: Normal low dose CT lung screening Lung RADS Cat 1 - Negative: No nodules and definitely benign nodules modifier S Lung-RADS 1.0 CATEGORIES: Category 0 - Prior chest CT exam(s) being located for comparison. Category 1 - Annual screening in 12 months. No nodules or definitely benign nodules. Category 2 - Annual screening in 12 months. Benign appearance. Nodules with low likelihood of becomin g active cancer. Category 3 - 6-month follow-up. Probably benign. Short-term follow-up suggested. Nodules with low lik elihood of becoming active cancer. Category 4A - 3-month follow-up and CT/PET if >8 mm in size. Suspicious finding. Findings which requi re additional testing. Category 4B - Findings which require additional testing and tissue sampling. Suspicious finding. C Added to Any of the Above - History of prior lung cancer screening. S Added to Any of the Above - Significant unexpected other finding. RADIATION DOSE DELIVERED: 78.48mGy.cm Total DLP DATA REPOSITORY: All CT scans at this facility are submitted to the National Radiology Data Registry (NRDR) Dose Index Registry (DIR) with the [employer] (ACR). RADIATION OPTIMIZATION: All CT scans at this facility use at least one of these dose optimization te chniques: automated exposure control; mA and/or kV adjustment per patient size (includes targeted exa ms where dose is matched to clinical indication); or iterative reconstruction.
== END 2020-01-30 01:48 ==
PROVIDERS: PCP Nurse Practitioner; Visit Provider Nurse Practitioner
DX: Z12.31 Encounter for screening mammogram for malignant neoplasm of breast (principal); R92.2 Inconclusive mammogram; F17.210 Nicotine dependence, cigarettes, uncomplicated
CPT/HCPCS: 77063; 77067; G0297

== ENCOUNTER 2020-02-08 06:12 | Day surgery (SDC) | payer MEDICAID, SELFPAY ==
[2020-02-08 06:26] VITALS: BP 123/77; PULSE 109; RESP 18; TEMP 36.6; O2SAT 96
[2020-02-08] MEDS: Lactated Ringers 1,000 ML 80 ML IV (06:45)
--- NOTE | 2020-02-08 07:40 | BOWEL_PTH ---
PATIENT: Christa Yoon LOC: [facility] U#:[id number] AGE/SX: 59/F ROOM: RE02/08/[address]: Renee Judge : 1960 BED: DIS: 02/08/2020 SPEC #: [id number] RECD: 02/08/20 12:24 STATUS: NAYELI Angelica #: [id number] RAMÓN: 02/08/20 07:[address]: Renee Judge DEPT: Surgical Specimen RECD BY: Geena Cui ENTERED: 02/08/20 12:29 SP TYPE: Bowel OTHR DR: Chapis Siddiqui, PhD [employer] Tissues: 1 - BIOPSY BOWEL 2 - BIOPSY BOWEL 3 - BIOPSY BOWEL 4 - BIOPSY BOWEL 5 - BIOPSY BOWEL 6 - BIOPSY BOWEL 7 - BIOPSY BOWEL 8 - BIOPSY BOWEL 9 - BIOPSY BOWEL Procedures: GROSS AND MICRO LEVEL 4 Comments: [id number]
--- NOTE | 2020-02-08 07:55 | W.COLOREPORT ---
Date of service: 02/08/20 Time of Service: 07:55 Colonoscopy Report Date of procedure: 02/08/20 Pre-op diagnosis general: didarrhea/CRC screen Post-op diagnosis procedure note: other Surgeon: Renee Judge Anesthesia proc note operative: GETA Estimated blood loss (mL): 0 Pathology: other Complications: None Disposition: same day Prep: Miralax/Dulcolax Retraction Time: 15 mins Procedure Description: After informed consent was obtained the patient was taken to the procedure room and placed in a left decubitous position. Monitors were applied and a time out was done. The patients name, date of , procedure, allergies to medications and metal in their body was reviewed. The patient was then sedated. Once sedated and comfortable a rectal exam was done. External exam: External hemorrhoidal tags. internal exam revealed a normal sphincter tone and no palpable masses. The scope was then introduced and retrofelexed. No internal hemorrhoids were identified. The scope was then advanced to the cecum w/ out difficulty. The TI and appendiceal orifice were identified. The prep was good. The scope was then slowly retracted over 15 minutes back into the rectum. No AVMs polyps or diverticuli apparent. Biopsies were taken every 10 cm starting in the cecum. All specimens are retrieved and no bleeding is noted. The mucosa is pink and healthy and appears normal. No etiology for the diarrhea is identified. the scope was removed and the patient was woken up and taken back to Same day surgery in stable condition.. The patient tolerated the procedure well and there were no immediate complications. Follow up: The patient should follow up in 10 years- path pd unless they develop changes in bowel habits or other new gastrointestinal complaints.
[2020-02-08] MEDS: Carvedilol 6.25 MG TAB PO (08:10)
--- NOTE | 2020-02-08 08:13 | W.PM.DSUDISC ---
Discharge Plan Disposition Patient Disposition: HOME Condition: Good Discharge Details Reason For Visit: colon scope Attending Provider: Omayra Garcia Primary Care Provider: Chapis Siddiqui Home Meds and New Rx's Prescriptions: Continued duloxetine 60 mg capsule,delayed release(DR/EC) 60 mg PO DAILY Qty: 90 RF: 3 folic acid 1 mg tablet 1 mg PO DAILY Qty: 90 RF: 3 mirtazapine 7.5 mg tablet 7.5 mg PO QHS Qty: 90 RF: 3 thiamine HCl (vitamin B1) 100 mg tablet 100 mg PO DAILY Qty: 90 RF: 3 hkxgetdz-tepe-RK-calcium-mins 9 mg iron-400 mcg tablet 1 tab PO DAILY Qty: 90 RF: 3 carvedilol 6.25 mg tablet 6.25 mg PO BID Qty: 180 RF: 3 levothyroxine 50 mcg capsule 50 mcg PO DAILY Qty: 60 RF: 0 ferrous sulfate 15 mg iron (75 mg)/mL Drops PO RF: 0 Discontinued aspirin [Adult Aspirin Regimen] 81 mg tablet,delayed release (DR/EC) 81 mg PO DAILY RF: 0 polyethylene glycol 3350 17 gram/dose powder 238 g PO ONCE Qty: 238 RF: 0 bisacodyl [Dulcolax (bisacodyl)] 5 mg tablet,delayed release (DR/EC) 5 mg PO ONCE Qty: 4 RF: 0 Discharge Instructions Additional Instructions: Findings:normal colon BX taken Follow up: Dr. Judge in 2-3 wks Please call if you develop: fevers >101.5 Nausea or Vomiting Abdominal pain that is not transient DAY SURGERY UNIT POST COLONOSCOPY INSTRUCTIONS 1. Because there will be medication in your system for the next 24 hours, you may feel a little sleepy. Your coordination will be affected. Therefore: a. Do not drive or operate dangerous equipment for 24 hours. b. Do not drink alcohol beverages for 24 hours (not even beer). c. Plan to go home and rest for the day. 2. Generally there are no restrictions on your activity after a day or so has gone by, but you may feel a bit fatigued for a few days. 3 After you arrive home you may have a light meal and return to a normal diet as you can tolerate it without feeling sick to your stomach. 4. After surgery, you may feel pain or discomfort. This should be only transient, but if it persists please contact your doctor. 5. If there are any questions regarding the findings of your procedure, please feel free to contact your doctor. 6. If you are unable to contact your doctor with a problem, contact the hospital at [phone]. 7. Continue all your regular medications unless directed otherwise. I understand the above instructions and have no questions. Signature of Patient or Responsible Adult Escort Date/Time Name of Responsible Adult Escort Signature of Nurse Date/Time Activity:: No lifting over 20 pounds or strenuous activity x24 hours Diet:: Small light meals x24 hours Discharge Orders Discharge Orders: Discharge Order (Routine); Ordered 02/08/20 Ordered By: Renee Judge DS: Diagnosis Discharge Diagnosis (1) Chronic diarrhea: Status: Acute
[2020-02-08 08:27] VITALS: BP 108/67; PULSE 97; RESP 17; TEMP 36.2; O2SAT 96
== END 2020-02-08 09:15 | disposition home or self-care (01) ==
PROVIDERS: PCP Nurse Practitioner; Visit Provider Surgery
PROC: 0DJD8ZZ Inspection of Lower Intestinal Tract, Via Natural or Artificial Opening Endoscopic (ICD-10-PCS; CPT 45378; principal; 2020-02-08 07:30)
DX: R19.7 Diarrhea, unspecified (principal)
CPT/HCPCS: 45380; 88305; J2001

== ENCOUNTER 2020-02-15 14:35 | Outpatient (REF) | payer MEDICAID, SELFPAY ==
[2020-02-15 14:56] LABS: Bilirubin Negative (Negative); Blood Moderate (Negative); Clarity Cloudy (Clear); Glucose Negative (Negative); Ketones 80 mg/dL (Negative); Leukocyte Esterase Trace (Negative); Nitrite Negative (Negative); Specific Gravity >= 1.030 (1.005-1.025); Urobilinogen 0.2 EU/dL (Up TO 0.2); pH 5.5 (5-8)
[2020-02-15 15:10] LABS: Bacteria Many HPF (Negative); Crystals Negative HPF (Negative); Epithelial Cells Moderate HPF (Negative); Mucus Negative (Negative)
[2020-02-15 15:11] LABS: C & S Indicated? No/Sq. Contamination; Casts Negative LPF (Negative)
== END 2020-02-15 14:55 ==
LOC: LBN 14:35
PROVIDERS: PCP Nurse Practitioner; Visit Provider Nurse Practitioner
DX: R30.0 Dysuria (principal)
CPT/HCPCS: 81003; 81015

== ENCOUNTER 2020-02-23 10:06 | Outpatient (REF) | payer MEDICAID, SELFPAY ==
[2020-02-23 13:19] LABS: Bilirubin Negative (Negative); Blood Negative (Negative); Clarity Clear (Clear); Glucose Negative (Negative); Ketones Negative (Negative); Leukocyte Esterase Negative (Negative); Nitrite Negative (Negative); Urobilinogen 0.2 EU/dL (Up TO 0.2); pH 6.5 (5-8)
[2020-02-23 13:25] LABS: HCT 41.7 % (36.0-46.0); HGB 13.8 g/dL (11.2-15.7); MCH 30.9 pg (27.0-33.0); MCHC 33.1 % (32.0-36.0); MCV 93.3 fL (80-95); MPV 11.6 fL (8.0-11.0); Platelet Count 348 10^3/uL (130-400); RBC 4.47 10^6/uL (3.93-5.22); RDW 14.1 % (11.7-14.6); RDW-SD 48.3 fL; WBC 9.95 10^3/uL (4.4-10.8)
[2020-02-23 13:50] LABS: TSH (W/Ref FT4) 7.89 uIU/mL (0.36-3.74)
[2020-02-23 14:14] LABS: FREE T4 1.16 ng/dL (0.76-1.46)
[2020-02-24 13:15] LABS: Albumin 64.4 % (55.8-66.1); Total Protein 6.8 g/dL (6.3-8.2)
== END 2020-02-23 10:26 ==
LOC: LBN 10:06
PROVIDERS: PCP Nurse Practitioner; Visit Provider Nurse Practitioner
DX: D64.9 Anemia, unspecified (principal); R10.9 Unspecified abdominal pain; E03.9 Hypothyroidism, unspecified; R30.0 Dysuria; R77.8 Other specified abnormalities of plasma proteins
CPT/HCPCS: 85027; 81003; 84165; 84439; 84443; 87086

== ENCOUNTER 2020-02-27 07:46 | Outpatient (CLI) | payer MEDICAID, SELFPAY ==
[2020-02-29 21:27] LABS: Patient Race White; SARS-CoV-2 RNA Undetected (Undetected); SARS-CoV-2 Specimen Source Nasal
== END 2020-02-27 08:06 ==
PROVIDERS: PCP Nurse Practitioner; Visit Provider Nurse Practitioner
DX: Z11.59 Encounter for screening for other viral diseases (principal); R19.7 Diarrhea, unspecified
CPT/HCPCS: U0003

== ENCOUNTER 2020-03-06 16:43 | Outpatient (REF) | payer MEDICAID, SELFPAY ==
[2020-03-06 20:47] LABS: Bilirubin Negative (Negative); Blood Negative (Negative); Clarity Clear (Clear); Glucose Negative (Negative); Ketones Negative (Negative); Leukocyte Esterase Negative (Negative); Nitrite Negative (Negative); Specific Gravity 1.025 (1.005-1.025); Urobilinogen 0.2 EU/dL (Up TO 0.2); pH 5.5 (5-8)
== END 2020-03-06 17:03 ==
LOC: LBN 16:43
PROVIDERS: PCP Nurse Practitioner; Visit Provider Nurse Practitioner
DX: N39.9 Disorder of urinary system, unspecified (principal); R30.0 Dysuria
CPT/HCPCS: 81003; 87086

== ENCOUNTER 2020-03-16 22:28 | Outpatient (REF) | payer MEDICAID, SELFPAY ==
[2020-03-16 16:58] LABS: Abs Immature Grans 0.03 10^3/uL (0.0-0.06); Absolute Basophil Count 0.12 10^3/uL (0.0-0.2); Absolute Eosinophil Count 0.21 10^3/uL (0.0-0.7); Absolute Lymphocyte Count 2.25 10^3/uL (1.2-3.4); Absolute Monocyte Count 0.75 10^3/uL (0.1-0.8); Absolute Neutrophil Count 6.36 10^3/uL (1.2-6.7); Basophils % 1.2; Eosinophils % 2.2; HCT 42.5 % (36.0-46.0); HGB 13.8 g/dL (11.2-15.7); Immature Grans % 0.3; Lymphocytes % 23.1; MCH 31.1 pg (27.0-33.0); MCHC 32.5 % (32.0-36.0); MCV 95.7 fL (80-95); MPV 11.1 fL (8.0-11.0); Monocytes % 7.7; Neutrophils % 65.5; Nucleated RBC 0 %; Platelet Count 383 10^3/uL (130-400); RBC 4.44 10^6/uL (3.93-5.22); RDW-SD 52.4 fL; WBC 9.72 10^3/uL (4.4-10.8)
[2020-03-16 17:40] LABS: ALT 24 U/L (14-59); AST 17 U/L (15-37); Albumin 3.8 g/dL (3.4-5.0); Alkaline Phosphatase 205 U/L (46-116); Anion Gap 9.6 mmol/L (3-11); BUN 13 mg/dL (7-18); Bilirubin, Total 0.3 mg/dL (0.2-1.0); CO2 28.4 mmol/L (21.0-32.0); CREATININE 0.71 mg/dL (0.55-1.02); Calcium 8.6 mg/dL (8.5-10.1); Chloride 102 mmol/L (98-107); Glucose 96 mg/dL (74-106); Hemoglobin A1C 5.6 % (<5.7); Sodium 140 mmol/L (136-145); Total Protein 7.1 g/dL (6.4-8.2)
[2020-03-16 17:44] LABS: C-Reactive Protein < 0.05 mg/dL (0.0-0.3)
[2020-03-16 17:52] LABS: GGT 55 U/L (5-55)
[2020-03-16 18:54] LABS: Prothrombin Time 9.6 sec (9.3-11.0)
[2020-03-16 19:00] LABS: FREE T4 1.07 ng/dL (0.76-1.46)
== END 2020-03-16 22:48 ==
LOC: LBN 22:28
PROVIDERS: PCP Nurse Practitioner; Visit Provider Surgery
DX: D64.9 Anemia, unspecified (principal); R53.83 Other fatigue; F10.11 Alcohol abuse, in remission; K70.30 Alcoholic cirrhosis of liver without ascites; R10.9 Unspecified abdominal pain; R30.0 Dysuria; R00.0 Tachycardia, unspecified; K52.831 Collagenous colitis; G62.9 Polyneuropathy, unspecified
CPT/HCPCS: 80053; 82977; 83036; 84439; 84443; 85025; 85610; 86140

== ENCOUNTER 2020-03-27 01:34 | Outpatient (CLI) | payer MEDICAID, SELFPAY ==
--- NOTE | 2020-03-27 07:00 | DI.CT_ITS ---
EXAM: CT ABDOMEN PELVIS W CLINICAL HISTORY: pain in RLQ/appears to be more musculoskeletal,COLITIS, ANEMIA. TECHNIQUE: Imaging Protocol: Axial computed tomography images with coronal and sagittal reformatted images were created and reviewed CONTRAST MATERIAL: Intravenous: Omnipaque 350 Contrast volume:100 ml Oral: yes COMPARISON: CR XR ABDOMEN FLAT UPRIGHT from 05/03/[address] CHEST LUNG CANCER SCREEN from 01/30/2020 FINDINGS: ABDOMEN: Lung Bases: Normal where visualized. Normal heart size. Liver: Normal density. No measurable mass. Gallbladder and biliary tract: Stone is seen near the fundus of the gallbladder. There is apparent P hrygian cap enhancement of the wall as well as a question of some surrounding mild inflammation. The more proximal gallbladder shows no evidence of wall thickening. Common bile duct measures 5 millime ters. No common duct stones are seen. Pancreas: Normal density, no abnormal calcifications or inflammatory process. Moderate atrophy. Spleen: Normal. Kidneys: Normal size, contour and axis. No radiodense stones or obstructive uropathy. No masses seen. Adrenal glands: No masses seen. Abdominal Aorta: Abdominal portion non-dilated. Moderate calcification. PELVIS: Bladder: Symmetric distention, no gross wall thickening. Bowel: No obstruction or bowel wall thickening. No evidence of colitis. Normal appendix. Peritoneal cavity: No ascites, collection or mesenteric inflammatory response. Bones: There are mild compression fractures of the superior endplates of L3 and L4. The appearance i s sub subacute. They were not seen on the abdomen plain films from 03 May 2019. Reproductive organs: Within normal limits. Lymph nodes: Unremarkable. 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 Ultrasound could be performed for further eval uation. Subacute appearing mild compression fractures of the superior endplates of L3 and L4. RADIATION DOSE DELIVERED: 592.23mGy.cm Total DLP DATA REPOSITORY: All CT scans at this facility are submitted to the National Radiology Data Registry (NRDR) Dose Index Registry (DIR) with the [employer] (ACR). RADIATION OPTIMIZATION: All CT scans at this facility use at least one of these dose optimization te chniques: automated exposure control; mA and/or kV adjustment per patient size (includes targeted exa ms where dose is matched to clinical indication); or iterative reconstruction.
[2020-03-27] MEDS: Breeza Beverage 473 ML BTL PO ×2 (08:32→08:33)
[2020-03-27] MEDS: Omnipaque 350 MG/ML 50 ML BTL PO (08:32)
[2020-03-27] MEDS: Omnipaque 350 MG/ML 100 ML BTL IJ (10:23)
== END 2020-03-27 01:54 ==
PROVIDERS: PCP Nurse Practitioner; Visit Provider Surgery
DX: R10.31 Right lower quadrant pain (principal); M48.56XA Collapsed vertebra, not elsewhere classified, lumbar region, initial encounter for fracture; K52.89 Other specified noninfective gastroenteritis and colitis; D64.9 Anemia, unspecified; Q44.1 Other congenital malformations of gallbladder; K80.20 Calculus of gallbladder without cholecystitis without obstruction
CPT/HCPCS: 74177; J3490; Q9967

== ENCOUNTER 2020-04-13 02:06 | Outpatient (CLI) | payer MEDICAID, SELFPAY ==
--- NOTE | 2020-04-13 06:50 | DI.US_ITS ---
EXAM: US ABDOMEN CLINICAL HISTORY: F/U CT, GALLSTONES,RLQ PAIN, CIRRHOSIS,K70.30,K80.20 TECHNIQUE: Ultrasound abdomen performed using standard protocol. COMPARISON: CT CT CHEST LUNG CANCER SCREEN from 01/30/[address] ABDOMEN PELVIS W from 03/27/2020 FINDINGS: LIVER: Normal size and echogenicity. No focal liver lesions are seen.. GALLBLADDER: The gallbladder is somewhat contracted. There is a stone at the fundus of the gallbladd er as well as a Phrygian cap. It is not mobile. Sludge is also seen. There is marked wall thickeni ng and increased echogenicity of the wall of the gallbladder in this area. No blood flow is seen wit hin the wall.. The CT showed significant enhancement in the gallbladder wall in the area of the Phry jocelyn cap. The more proximal gallbladder shows no evidence of wall thickening. No pericholecystic fl uid identified. PEACOCK'S SIGN: Negative. BILIARY SYSTEM: No intrahepatic or extrahepatic biliary ductal dilation. KIDNEYS: Kidneys are symmetric in size. No evidence of renal calculi. No evidence of hydronephrosis. No renal mass or cyst identified. PANCREAS: Normal where visualized. SPLEEN: Not enlarged. ABDOMINAL AORTA AND IVC: Visualized portions normal caliber. ASCITES: None seen. IMPRESSION: Phrygian cap with marked thickening of the wall to 6 millimeters. Stone as well as sludge is seen wi thin the Phrygian cap. Previous CT showed marked enhancement. A mass cannot be excluded. Consider surgical consultation. DATA REPOSITORY:
== END 2020-04-13 02:26 ==
PROVIDERS: PCP Nurse Practitioner; Visit Provider Surgery
DX: K70.30 Alcoholic cirrhosis of liver without ascites (principal); K80.20 Calculus of gallbladder without cholecystitis without obstruction
CPT/HCPCS: 76700

== ENCOUNTER 2020-04-20 14:13 | Outpatient (REF) | payer MEDICAID, SELFPAY ==
--- NOTE | 2020-04-20 10:00 | PAPFT_PTH ---
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
== END 2020-04-20 14:33 ==
LOC: LBN 14:13
PROVIDERS: PCP Nurse Practitioner; Visit Provider Nurse Practitioner
DX: Z12.4 Encounter for screening for malignant neoplasm of cervix (principal); Z11.51 Encounter for screening for human papillomavirus (HPV)
CPT/HCPCS: 88142; 87624

== ENCOUNTER 2020-05-07 19:04 | Outpatient (REF) | payer MEDICAID, SELFPAY ==
[2020-05-07 17:15] LABS: Abs Immature Grans 0.03 10^3/uL (0.0-0.06); Absolute Basophil Count 0.06 10^3/uL (0.0-0.2); Absolute Eosinophil Count 0.04 10^3/uL (0.0-0.7); Absolute Lymphocyte Count 1.56 10^3/uL (1.2-3.4); Absolute Monocyte Count 0.49 10^3/uL (0.1-0.8); Absolute Neutrophil Count 5.66 10^3/uL (1.2-6.7); Basophils % 0.8; Eosinophils % 0.5; HGB 13.6 g/dL (11.2-15.7); Immature Grans % 0.4; Lymphocytes % 19.9; MCH 32.3 pg (27.0-33.0); MCHC 33.2 % (32.0-36.0); MCV 97.4 fL (80-95); MPV 10.6 fL (8.0-11.0); Monocytes % 6.3; Neutrophils % 72.1; Nucleated RBC 0 %; Platelet Count 334 10^3/uL (130-400); RBC 4.21 10^6/uL (3.93-5.22); RDW 14.7 % (11.7-14.6); RDW-SD 53.1 fL; WBC 7.84 10^3/uL (4.4-10.8)
[2020-05-07 17:31] LABS: ALT 23 U/L (14-59); AST 16 U/L (15-37); Albumin 3.7 g/dL (3.4-5.0); Alkaline Phosphatase 141 U/L (46-116); Anion Gap 9.3 mmol/L (3-11); BUN 10 mg/dL (7-18); Bilirubin, Total 0.3 mg/dL (0.2-1.0); CO2 25.7 mmol/L (21.0-32.0); CREATININE 0.67 mg/dL (0.55-1.02); Calcium 9.1 mg/dL (8.5-10.1); Chloride 102 mmol/L (98-107); Glucose 95 mg/dL (74-106); Potassium 4.1 mmol/L (3.5-5.1); Sodium 137 mmol/L (136-145); Total Protein 7.4 g/dL (6.4-8.2)
[2020-05-07 17:42] LABS: GGT 79 U/L (5-55)
[2020-05-07 17:51] LABS: Prothrombin Time 9.6 sec (9.3-11.0)
== END 2020-05-07 19:24 ==
LOC: LBN 19:04
PROVIDERS: PCP Nurse Practitioner; Visit Provider Surgery
DX: R10.31 Right lower quadrant pain (principal); Q44.1 Other congenital malformations of gallbladder; M48.56XA Collapsed vertebra, not elsewhere classified, lumbar region, initial encounter for fracture; E03.9 Hypothyroidism, unspecified; F10.11 Alcohol abuse, in remission; R53.83 Other fatigue; G62.9 Polyneuropathy, unspecified; K70.30 Alcoholic cirrhosis of liver without ascites; K52.831 Collagenous colitis; F10.982 Alcohol use, unspecified with alcohol-induced sleep disorder; K52.9 Noninfective gastroenteritis and colitis, unspecified
CPT/HCPCS: 80053; 82977; 85025; 85610

== ENCOUNTER 2020-05-31 01:40 | Outpatient (CLI) | payer MEDICAID, SELFPAY ==
--- NOTE | 2020-05-31 07:00 | DI.DEXA_ITS ---
EXAM: XR DEXA BONE DENSITY W/WO SHILPA CLINICAL HISTORY: non traumatic vetrebral compression Fx,M48.56XA TECHNIQUE: Routine DEXA evaluation of the lumbar spine, hip, or forearm. COMPARISON: No exams were available for comparison FINDINGS: Performed on a Hologic unit. Lateral image: There is height loss of superior endplates of L3 and L4 Lumbar Spine total T-score: -1.2 osteopenia range Hip total T-score:-2.9 osteoporosis range Forearm total T-score: -2.7 osteoporosis range IMPRESSION: Bone mineral density measures in the osteoporosis range. Fracture risk is high. Note: Any spine fracture indicates 5x risk for subsequent spine fracture and 2x risk for subsequent h ip fracture. World Health Organization criteria for BMD interpretation classify patients: Normal...... T- Score at or above -1.0 Osteopenic... T- Score between -1.0 and -2.5 Osteoporosis... T-Score at or below -2.5
== END 2020-05-31 02:00 ==
PROVIDERS: PCP Nurse Practitioner; Visit Provider Surgery
DX: M85.88 Other specified disorders of bone density and structure, other site (principal); M81.0 Age-related osteoporosis without current pathological fracture
CPT/HCPCS: 77080

== ENCOUNTER 2020-08-29 16:32 | Outpatient (REF) | payer MEDICAID, SELFPAY ==
[2020-08-31 14:04] LABS: COVID-19 RT-PCR UVMMC Result Negative (Negative)
== END 2020-08-29 16:33 | disposition home or self-care (01) ==
LOC: NCHCN 16:32
PROVIDERS: PCP Nurse Practitioner; Visit Provider Nurse Practitioner Family
DX: Z20.822 Contact with and (suspected) exposure to COVID-19 (principal)
CPT/HCPCS: U0003

== ENCOUNTER 2020-09-20 03:17 | Outpatient (CLI) | payer MEDICAID, SELFPAY ==
[2020-09-20 11:51] LABS: ALT 38 U/L (14-59); AST 33 U/L (15-37); Albumin 3.2 g/dL (3.4-5.0); Alkaline Phosphatase 116 U/L (46-116); BUN 10 mg/dL (7-18); Bilirubin, Total 0.3 mg/dL (0.2-1.0); CREATININE 0.7 mg/dL (0.55-1.02); Chloride 108 mmol/L (98-107); Glucose 92 mg/dL (74-106); Potassium 4.3 mmol/L (3.5-5.1); Sodium 145 mmol/L (136-145); Total Protein 6.3 g/dL (6.4-8.2)
[2020-09-20 11:58] LABS: TSH (W/Ref FT4) 3.75 uIU/mL (0.36-3.74)
[2020-09-20 12:17] LABS: FREE T4 0.96 ng/dL (0.76-1.46)
== END 2020-09-20 03:18 | disposition home or self-care (01) ==
LOC: LBO 03:17
PROVIDERS: Nurse Practitioner Family; PCP Nurse Practitioner; Visit Provider Nurse Practitioner
DX: K76.89 Other specified diseases of liver (principal); E03.9 Hypothyroidism, unspecified
CPT/HCPCS: 36415; 80053; 84439; 84443

== ENCOUNTER 2020-11-23 04:29 | Outpatient (CLI) | payer MEDICAID, SELFPAY ==
--- NOTE | 2020-11-23 08:15 | DI.US_ITS ---
Exam(s) US ABDOMEN LIMITED EXAM: US ABDOMEN LIMITED CLINICAL HISTORY: follow up phrygian cap, neuropathy,q441.,g62.9 TECHNIQUE: Ultrasound abdomen performed using standard protocol. COMPARISON: US LEFT BREAST ULTRASOUND from 06/22/2009 US LEFT BREAST ULTRASOUND from 06/22/2009 CR XR ABDOMEN FLAT UPRIGHT from 05/03/2019 CR XR ABDOMEN FLAT UPRIGHT from 05/03/[address] CHEST LUNG CANCER SCREEN from 01/30/[address] CHEST LUNG CANCER SCREEN from 01/30/[address] ABDOMEN PELVIS W from 03/27/[address] ABDOMEN PELVIS W from 03/27/2020 US US ABDOMEN from 04/13/2020 US US ABDOMEN from 04/13/2020 FINDINGS: LIVER: Normal size. Mildly increased echogenicity. No focal liver lesions are seen.. GALLBLADDER: Stable diffuse echogenic wall thickening up to 7 millimeters, involving the distal half of the gallbladder. A nonmobile stone and sludge are noted near the fundus. No pericholecystic flui d identified. RIGHT KIDNEY: Normal size. No evidence of renal calculi. No evidence of hydronephrosis. No suspicious renal mass. No cyst identified. PANCREAS: Normal where visualized. ABDOMINAL AORTA AND IVC: Visualized portions normal caliber. ASCITES: None seen. IMPRESSION: Stable appearance of marked wall thickening of the distal gallbladder and nonmobile stone at the fund us.. DATA REPOSITORY:
== END 2020-11-23 04:49 ==
PROVIDERS: PCP Nurse Practitioner; Visit Provider Nurse Practitioner
DX: G62.9 Polyneuropathy, unspecified (principal); Q44.1 Other congenital malformations of gallbladder; K80.20 Calculus of gallbladder without cholecystitis without obstruction
CPT/HCPCS: 76705

== ENCOUNTER 2021-01-15 12:37 | Outpatient (REF) | payer MEDICAID, SELFPAY ==
[2021-01-16 13:39] LABS: COVID-19 RT-PCR UVMMC Result Negative (Negative)
== END 2021-01-15 12:38 | disposition home or self-care (01) ==
LOC: LBN 12:37
PROVIDERS: PCP Nurse Practitioner; Visit Provider Nurse Practitioner Family
DX: Z20.822 Contact with and (suspected) exposure to COVID-19 (principal); R51.9 Headache, unspecified; R53.83 Other fatigue; R68.83 Chills (without fever)
CPT/HCPCS: U0003

== ENCOUNTER 2021-08-25 14:23 | Observation (INO) | payer MEDICAID, SELFPAY ==
[2021-08-25] VITALS (40 sets, daily range): BP systolic 144–159; BP diastolic 78–94; PULSE 93–119; RESP 16–20; TEMP 36.6–36.8; O2SAT 92–98
--- NOTE | 2021-08-25 14:15 | RT.EKG_ITS ---
APPROVED REPORT Exam: Resting ECG Reason for Exam: weakness Patient Location: E HR:91 bpm ECG Measurements Heart Rate 91 AXIS NV 197 P 64 QRSd 83 QRS 15 QT 388 T 32 QTc 478 Conclusion Sinus rhythm...normal P axis, V-rate 60- 99. Sinus. Normal axis. No STEMI. I have reviewed and interpreted ECG and agree with software generated interpretation.
--- NOTE | 2021-08-25 14:26 | ED.GENADUL_ITS ---
Discharge Plan Disposition Patient Disposition: [facility] INPATIENT Condition: Stable Discharge Details Clinical Impression: Alcohol withdrawal, Alcohol intoxication, Suicidal ideation Primary Care Provider: Chapis Siddiqiu ED Provider: Lanette Murillo Home Meds and New Rx's Prescriptions: No Action nyfzpdbc-gfdp-JX-calcium-mins 9 mg iron-400 mcg tablet 1 tab PO DAILY Qty: 90 3RF ibuprofen [Motrin IB] 200 mg tablet 200 mg PO Q6H PRN0RF ascorbate calcium (vitamin C) 500 mg tablet 500 mg PO BID Qty: 60 0RF cholecalciferol (vitamin D3) 125 mcg (5,000 unit) capsule 125 mcg PO DAILY Qty: 30 0RF melatonin 3 mg capsule 3 mg PO HS Qty: 30 0RF alendronate [Fosamax] 70 mg tablet 70 mg PO QWEEK Qty: 13 4RF budesonide 3 mg capsule,delayed,extend.release 3 mg PO DAILY PRN (Reason: diarrhea) Qty: 60 3RF Rx Instructions: take 3 caps as needed carvedilol 6.25 mg tablet 6.25 mg PO BID Qty: 180 4RF duloxetine 60 mg capsule,delayed release(DR/EC) 60 mg PO DAILY Qty: 90 4RF folic acid 1 mg tablet 1 mg PO DAILY Qty: 90 3RF gabapentin 300 mg capsule 600 mg PO QHS Qty: 90 3RF levothyroxine 50 mcg capsule 50 mcg PO DAILY Qty: 90 3RF mirtazapine 15 mg tablet 15 mg PO QHS Qty: 90 4RF thiamine HCl (vitamin B1) 100 mg tablet 100 mg PO DAILY Qty: 90 3RF fluoxetine 20 mg capsule 20 mg PO DAILY Qty: 90 3RF propranolol 60 mg capsule,extended release 24 hr 60 mg PO DAILY Qty: 90 3RF ferrous sulfate 15 mg iron (75 mg)/mL Drops PO 0RF Label Comments: pt .unsure of dose Medical Decision Making 1500 -- 60-year-old female with a history of alcohol abuse, cirrhosis, anxiety, hypertension, depression who presents for alcohol intoxication and suicidal ideation for the past few days. Blood pressure and heart rate elevated. Remainder vitals within normal limits. She appears intoxicated and demonstrates no signs of alcohol withdrawal. No focal deficits. She has a superficial self-inflicted laceration to her left volar wrist. No other significant trauma noted. Will obtain screening labs and plan for mental health evaluation once alcohol level 0. We will continue to monitor for signs of alcohol withdrawal. We will also place an IV and banana bag. 161 --labs reviewed. Normal hemoglobin and white blood cell count. Minimal elevation in LFTs. TSH high at 9.2. Free T4 low at 0.71. Troponin negative. Alcohol level 308. She will be at 0 alcohol level at 4 AM. Will likely plan for mental health evaluation after 8 AM. D/w Vanessa from [facility] that pt may benefit for transfer to [facility] for alcohol detox and depression. We will continue to monitor for signs of alcohol withdrawal. 1800 --nursing noted that patient appears shaky and is feeling anxious. Heart rate 110s. Blood pressure 144/85. We will give a dose of Ativan and admit for potential early alcohol withdrawal. Patient is cooperative and agreeable with plan. She appears more alert and less intoxicated. Case discussed with Dr. Solano who accepts patient for admission. 190 --discussed with nursing pest management supervisor who notes that there are beds available but no staff. May have to hold patient in the ED for some time until can be transferred to the floor. Medical Records Medical records reviewed: Yes I reviewed the patient's medical records. Lab Data Lab results reviewed: Yes I reviewed the patient's lab results. Labs: Laboratory Tests Range/Units 08/25/21 08/25/21 08/25/21 15:43 15:43 15:43 WBC (4.4-10.8) 10^3/uL 5.30 RBC (3.93-5.22) 10^6/uL 3.94 Hgb (11.2-15.7) g/dL 13.3 Hct (36.0-46.0) % 39.9 MCV (80-95) fL 101.3 H MCH (27.0-33.0) pg 33.8 H MCHC (32.0-36.0) % 33.3 RDW (11.7-14.6) % 15.5 H Plt Count (130-400) 10^3/uL 205 MPV (8.0-11.0) fL 9.9 Immature Gran % 0.2 Neutrophils % 29.6 Lymphocytes % 53.2 Monocytes % 12.8 Eosinophils % 2.3 Basophils % 1.9 Nucleated RBC % (0.0-0.3) % 0.0 Absolute Neutrophils (1.2-6.7) 10^3/uL 1.57 Absolute Lymphocytes (1.2-3.4) 10^3/uL 2.82 Absolute Monocytes (0.1-0.8) 10^3/uL 0.68 Absolute Eosinophils (0.0-0.7) 10^3/uL 0.12 Absolute Basophils (0.0-0.2) 10^3/uL 0.10 Sodium (136-145) mmol/L 142 Potassium (3.5-5.1) mmol/L 4.1 Chloride (98-107) mmol/L 102 Carbon Dioxide (21.0-32.0) mmol/L 28.6 Anion Gap (3-11) mmol/L 11.4 H BUN (7-18) mg/dL 21 H Creatinine (0.55-1.02) mg/dL 0.7 Estimated GFR/1.73 m2 (mL/min/1.73m2) >= 60.00 Glucose (74-106) mg/dL 91 Calcium (8.5-10.1) mg/dL 8.1 L Magnesium (1.8-2.4) mg/dL 2.3 Total Bilirubin (0.2-1.0) mg/dL 0.1 L AST (15-37) U/L 82 H ALT (14-59) U/L 83 H Alkaline Phosphatase (46-116) U/L 113 Troponin I (<or=60) ng/L < 50 Total Protein (6.4-8.2) g/dL 6.8 Albumin (3.4-5.0) g/dL 3.4 TSH (0.36-3.74) uIU/mL Free T4 (0.76-1.46) ng/dL Urine Color (Yellow) Urine Clarity (Clear) Urine pH (5-8) Ur Specific [place] (1.005-1.025) Urine Protein (Negative) mg/dL Urine Ketones (Negative) mg/dL Urine Blood (Negative) Urine Nitrite (Negative) Urine Bilirubin (Negative) Urine Urobilinogen (Up TO 0.2) EU/dL Ur Leukocyte Esterase (Negative) Urine RBC (0-2) HPF Urine WBC (0-5) HPF Ur Epithelial Cells (Negative) HPF Urine Crystals (Negative) HPF Urine Bacteria (Negative) HPF Urine Casts (Negative) LPF Urine Mucus (Negative) Ur Culture Indicated? Urine Glucose (Negative) mg/dL Urine Opiates Screen (Negative) Urine Methadone Screen (Negative) Ur Barbiturates Screen (Negative) Ur Tricyclics Screen (Negative) Ur Amphetamines Screen (Negative) U Benzodiazepines Scrn (Negative) Urine Cocaine Screen (Negative) Ur THC Screen (Negative) Ethyl Alcohol (<10) mg/dL 308.7 H COVID-19 Source Nasal/Nares SARS-CoV-2 (PCR) (Negative) Negative Range/Units 08/25/21 08/25/21 08/25/21 15:43 18:13 18:13 WBC (4.4-10.8) 10^3/uL RBC (3.93-5.22) 10^6/uL Hgb (11.2-15.7) g/dL Hct (36.0-46.0) % MCV (80-95) fL MCH (27.0-33.0) pg MCHC (32.0-36.0) % RDW (11.7-14.6) % Plt Count (130-400) 10^3/uL MPV (8.0-11.0) fL Immature Gran % Neutrophils % Lymphocytes % Monocytes % Eosinophils % Basophils % Nucleated RBC % (0.0-0.3) % Absolute Neutrophils (1.2-6.7) 10^3/uL Absolute Lymphocytes (1.2-3.4) 10^3/uL Absolute Monocytes (0.1-0.8) 10^3/uL Absolute Eosinophils (0.0-0.7) 10^3/uL Absolute Basophils (0.0-0.2) 10^3/uL Sodium (136-145) mmol/L Potassium (3.5-5.1) mmol/L Chloride (98-107) mmol/L Carbon Dioxide (21.0-32.0) mmol/L Anion Gap (3-11) mmol/L BUN (7-18) mg/dL Creatinine (0.55-1.02) mg/dL Estimated GFR/1.73 m2 (mL/min/1.73m2) Glucose (74-106) mg/dL Calcium (8.5-10.1) mg/dL Magnesium (1.8-2.4) mg/dL Total Bilirubin (0.2-1.0) mg/dL AST (15-37) U/L ALT (14-59) U/L Alkaline Phosphatase (46-116) U/L Troponin I (<or=60) ng/L Total Protein (6.4-8.2) g/dL Albumin (3.4-5.0) g/dL TSH (0.36-3.74) uIU/mL 9.20 H Free T4 (0.76-1.46) ng/dL 0.71 L Urine Color (Yellow) Yellow Urine Clarity (Clear) Sl Cloudy Urine pH (5-8) 6.0 Ur Specific [place] (1.005-1.025) 1.020 Urine Protein (Negative) mg/dL 30 H Urine Ketones (Negative) mg/dL Negative Urine Blood (Negative) Trace-intact H Urine Nitrite (Negative) Negative Urine Bilirubin (Negative) Negative Urine Urobilinogen (Up TO 0.2) EU/dL 0.2 Ur Leukocyte Esterase (Negative) Negative Urine RBC (0-2) HPF 0-2 Urine WBC (0-5) HPF 3-5 Ur Epithelial Cells (Negative) HPF Few Urine Crystals (Negative) HPF Negative Urine Bacteria (Negative) HPF Negative Urine Casts (Negative) LPF Negative Urine Mucus (Negative) Negative Ur Culture Indicated? No Urine Glucose (Negative) mg/dL Negative Urine Opiates Screen (Negative) Negative Urine Methadone Screen (Negative) Negative Ur Barbiturates Screen (Negative) Negative Ur Tricyclics Screen (Negative) Negative Ur Amphetamines Screen (Negative) Negative U Benzodiazepines Scrn (Negative) Negative Urine Cocaine Screen (Negative) Negative Ur THC Screen (Negative) Negative Ethyl Alcohol (<10) mg/dL COVID-19 Source SARS-CoV-2 (PCR) (Negative) ECG Data Attestation: I personally reviewed and interpreted this ECG (s) as follows: Interpretation: rate of 91, sinus, normal axis, no STEMI. HPI General Mode of arrival: ambulatory . Date/Time Provider Initiated Documentation: 08/25/21 14:23 . Limitations to Documentation: no limitations . Information obtained by: patient . HPI Narrative: Patient is a 50-year-old female with a history of alcohol abuse, cirrhosis, hypertension, hyperlipidemia, anxiety and depression who presents with alcohol intoxication and suicidal ideation for the past 2 days. Patient states she drinks 1/2 pint of vodka daily. She states she had 1/4 pint of vodka today. She states she has thought about cutting her wrist and states that she cut her left wrist yesterday with a steak knife. Patient has had previous suicide attempts in the past in which she overdosed on Tylenol few years ago. She states she was admitted to [facility] for 6 weeks at that time. She states she has been to [facility] for alcohol detox in the past. She states she has fallen a few times recently but denies any pain due to the falls. She denies any known head injury, vomiting, chest pain, shortness of breath, abdominal pain or diarrhea. She states she has not been eating much over the past few days. Related Data Home Medications Medication Instructions Recorded Confirmed ferrous sulfate 15 mg iron (75 PO 02/08/20 04/04/21 mg)/mL oral drops multivitamin-iron 9 mg-folic acid 1 tab PO DAILY #90 tab 02/23/20 08/25/21 400 mcg-calcium and minerals tablet ibuprofen 200 mg tablet (Motrin IB) 200 mg PO Q6H PRN 03/16/20 04/04/21 ascorbate calcium (vitamin C) 500 500 mg PO BID #60 tab 01/15/21 08/25/21 mg tablet cholecalciferol (vitamin D3) 125 125 mcg PO DAILY #30 cap 01/15/21 08/25/21 mcg (5,000 unit) capsule melatonin 3 mg capsule 3 mg PO HS #30 cap 01/15/21 08/25/21 alendronate 70 mg tablet (Fosamax) 70 mg PO QWEEK #13 tab 04/04/21 08/25/21 budesonide 3 mg 3 mg PO DAILY PRN #60 cap 04/04/21 08/25/21 capsule,delayed,extended release carvedilol 6.25 mg tablet 6.25 mg PO BID #180 tab 04/04/21 08/25/21 duloxetine 60 mg capsule,delayed 60 mg PO DAILY #90 cap 04/04/21 08/25/21 release folic acid 1 mg tablet 1 mg PO DAILY #90 tab 04/04/21 08/25/21 gabapentin 300 mg capsule 600 mg PO QHS #90 cap 04/04/21 08/25/21 levothyroxine 50 mcg capsule 50 mcg PO DAILY #90 cap 04/04/21 08/25/21 mirtazapine 15 mg tablet 15 mg PO QHS #90 tab 04/04/21 08/25/21 thiamine HCl (vitamin B1) 100 mg 100 mg PO DAILY #90 tab 04/04/21 08/25/21 tablet fluoxetine 20 mg capsule 20 mg PO DAILY #90 cap 06/26/21 08/25/21 propranolol 60 mg capsule,24 60 mg PO DAILY #90 cap 06/26/21 08/25/21 hr,extended release Previous Rx's Medication Instructions Recorded multivitamin-iron 9 mg-folic acid 1 tab PO DAILY #90 tab 02/23/20 400 mcg-calcium and minerals tablet ascorbate calcium (vitamin C) 500 500 mg PO BID #60 tab 01/15/21 mg tablet cholecalciferol (vitamin D3) 125 125 mcg PO DAILY #30 cap 01/15/21 mcg (5,000 unit) capsule melatonin 3 mg capsule 3 mg PO HS #30 cap 01/15/21 alendronate 70 mg tablet (Fosamax) 70 mg PO QWEEK #13 tab 04/04/21 budesonide 3 mg 3 mg PO DAILY PRN #60 cap 04/04/21 capsule,delayed,extended release carvedilol 6.25 mg tablet 6.25 mg PO BID #180 tab 04/04/21 duloxetine 60 mg capsule,delayed 60 mg PO DAILY #90 cap 04/04/21 release folic acid 1 mg tablet 1 mg PO DAILY #90 tab 04/04/21 gabapentin 300 mg capsule 600 mg PO QHS #90 cap 04/04/21 levothyroxine 50 mcg capsule 50 mcg PO DAILY #90 cap 04/04/21 mirtazapine 15 mg tablet 15 mg PO QHS #90 tab 04/04/21 thiamine HCl (vitamin B1) 100 mg 100 mg PO DAILY #90 tab 04/04/21 tablet fluoxetine 20 mg capsule 20 mg PO DAILY #90 cap 06/26/21 propranolol 60 mg capsule,24 60 mg PO DAILY #90 cap 06/26/21 hr,extended release Allergies Allergy/AdvReac Type Severity Reaction Status Date / Time No Known Allergies Allergy Verified 08/25/21 14:47 General Stated Complaint: GenMedical LILIYA: 3 Review of Systems All systems reviewed & are unremarkable except as noted in HPI and below Constitutional Constitutional: Denies chills, Denies excessive sweating, Denies fatigue, Denies fever(s), Denies weakness and Denies weight loss Eyes Eyes: Reports system reviewed and no additional complaints, except as documented and Denies blurry vision ENT Ears, Nose, Mouth, and Throat: Denies vertigo, Denies dizziness, Denies otalgia, Denies nasal congestion, Denies sore throat and Denies throat swelling Cardiovascular Cardiovascular: Denies chest pain, Denies syncope, Denies rapid heart rate and Denies dyspnea Respiratory Respiratory: Denies chest congestion, Denies cough, Denies pain on inspiration and Denies dyspnea Gastrointestinal Gastrointestinal: Denies abdominal pain, Denies diarrhea and Denies vomiting Genitourinary Genitourinary: Denies hematuria, Denies dysuria and Denies flank pain Musculoskeletal Musculoskeletal: Denies back pain and Denies joint swelling Integumentary/Breasts Skin/Breast: Denies lesions and Denies rash Neurologic Neurologic: Denies behavioral changes, Denies confusion, Denies vertigo, Denies dizziness, Denies syncope, Denies localized weakness and Denies weakness Psychiatric Psychiatric: Denies behavioral changes, Denies confusion, Denies depression and Reports suicidal ideation Endocrine Endocrine: Denies excessive sweating and Denies fatigue Hematologic/Lymphatic Hematologic/Lymphatic: Denies easy bruising and Denies lymphadenopathy Allergic/Immunologic Allergic/Immunologic: Denies throat swelling PFSH All Active Problems (Updated 08/25/21 @ 18:58 by Lanette Murillo DO) Alcohol withdrawal (Acute) Alcohol intoxication (Acute) Suicidal ideation (Acute) HTN (hypertension) (Chronic) Osteoporosis (Chronic) Tremor of both hands (Acute) Anxiety (Chronic) Chronic liver disease (Acute) US 05/2019- likely r/t ETOH Phrygian cap (Acute) with thickening- gen surg consult placed Hypothyroid (Chronic) Alcohol abuse, in remission (Acute) Fatigue (Acute) Peripheral neuropathy (Acute) Cirrhosis with alcoholism (Acute) Insomnia (Acute) Depression (Acute 04/09/15) Medical History Abnormal serum protein electrophoresis 06/23/2019- repeat levels recommended in 6 months- normal Anemia Bilateral breast cysts left-1999 right-2004 Collagenous colitis Compression fracture of lumbar spine, non-traumatic Falls Family history of diabetes mellitus in father Foot pain Gallstones HTN (hypertension) Poor appetite RLQ abdominal pain Shoulder pain, bilateral Tobacco dependence Underweight due to inadequate caloric intake Vaginal high risk HPV DNA test positive (04/09/15) Weight loss Surgical History No significant past surgical history Family History Mother Diabetes Heart disease Hyperlipidemia Stroke Father Diabetes Heart disease Hyperlipidemia Brother Diabetes Heart disease Hyperlipidemia Maternal Cousin Family hx-breast malignancy Social History Smoking/Tobacco Use Status: Current every day Tobacco Type: cigarettes Smoking risk assessment performed?: Yes Alcohol Intake: current Alcohol Intake frequency: 0-2 drinks per day Details: Quit smoking and drinking after her hospitalisation at [facility] in apr 2019 Drug use: Never Substance use type: does not use Details: drinks vodka daily Household members: other Housing: other Details: father Current gender identity: female Do you feel safe at home: Yes Do you feel safe in your relationship?: Yes Additional Social history: pt. lives with father he is elderly . she has been falling at home and he is unable to get her up Exam Const General: cooperative and intoxicated appearing Orientation: alert, awake and oriented x3 HENMT Head: normal to inspection Ears: hearing grossly normal bilaterally and external ears normal General nose exam: external nose normal Face and sinus: normal facial exam Mouth: mucous membranes dry Teeth and gingiva: dentition normal Eyes General: appearance normal, both eyes and all related structures Eyelids: eyelids normal Pupils: PERRL EOM: EOM intact bilaterally Neck Neck: normal visual inspection Lymphatic: no lymphadenopathy noted Chest Chest: normal inspection of the chest Resp Effort & Inspection: normal respiratory effort and able to speak in complete sentences Auscultation: clear to auscultation bilaterally Cardio Rate: regular rate Rhythm: regular rhythm GI Inspection: normal to inspection Palpation: soft, not firm, no guarding, no hepatosplenomegaly, no masses and nontender Auscultation: normal bowel sounds Back/Spine/Pelvis Back: no CVA tenderness Skin General skin exam: no rashes or lesions noted Neuro General: patient alert, patient awake, patient oriented x3, moves all extremities, no meningeal signs and no focal motor deficits Cranial Nerves: CN's II-XI intact bilaterally Cognition: normal cognition Speech: speech normal Gait: normal gait Motor: muscle tone normal throughout and strength 5/5 throughout Sensory Exam: no sensory deficits noted Extrem General: normal to inspection, full ROM and capillary refill normal Elbow/forearm/wrist images: 1. 2 cm superficial linear laceration located on the left volar wrist overlying radius. No active bleeding. No signs of cellulitis or foreign body. Psych Appearance: grossly normal Mental Status: mental status grossly normal Speech and Movement: speech and movement normal Affect: normal affect Attitude: cooperative Thought Process: normal
[2021-08-25 15:52] LABS: Source Nasal/Nares
[2021-08-25] MEDS: MAGNESIUM SULFATE 8.12 MEQ, MULTIVITAMIN 10 ML, THIAMINE 100 MG, FOLIC ACID 1 MG in Nor... 168.867 MG IV (15:52)
[2021-08-25 15:58] LABS: Abs Immature Grans 0.01 10^3/uL (0.0-0.06); Absolute Eosinophil Count 0.12 10^3/uL (0.0-0.7); Absolute Lymphocyte Count 2.82 10^3/uL (1.2-3.4); Absolute Monocyte Count 0.68 10^3/uL (0.1-0.8); Absolute Neutrophil Count 1.57 10^3/uL (1.2-6.7); Basophils % 1.9; Eosinophils % 2.3; HCT 39.9 % (36.0-46.0); HGB 13.3 g/dL (11.2-15.7); Immature Grans % 0.2; Lymphocytes % 53.2; MCH 33.8 pg (27.0-33.0); MCHC 33.3 % (32.0-36.0); MCV 101.3 fL (80-95); MPV 9.9 fL (8.0-11.0); Monocytes % 12.8; Neutrophils % 29.6; Platelet Count 205 10^3/uL (130-400); RBC 3.94 10^6/uL (3.93-5.22); RDW 15.5 % (11.7-14.6); RDW-SD 57.9 fL
[2021-08-25 16:09] LABS: ALT 83 U/L (14-59); AST 82 U/L (15-37); Albumin 3.4 g/dL (3.4-5.0); Alkaline Phosphatase 113 U/L (46-116); Anion Gap 11.4 mmol/L (3-11); BUN 21 mg/dL (7-18); Bilirubin, Total 0.1 mg/dL (0.2-1.0); CO2 28.6 mmol/L (21.0-32.0); CREATININE 0.7 mg/dL (0.55-1.02); Calcium 8.1 mg/dL (8.5-10.1); Chloride 102 mmol/L (98-107); Glucose 91 mg/dL (74-106); Magnesium 2.3 mg/dL (1.8-2.4); Potassium 4.1 mmol/L (3.5-5.1); Sodium 142 mmol/L (136-145); Total Protein 6.8 g/dL (6.4-8.2); Troponin I < 50 ng/L (<or=60)
[2021-08-25 16:13] LABS: ETHANOL BLOOD 308.7 mg/dL (<10)
[2021-08-25 16:30] LABS: COVID-19 PCR Negative (Negative)
--- NOTE | 2021-08-25 16:31 | NUR.NOTE ---
Nursing Note: Patient was offered food, beverage, and prn nicotine replacement - patient declined and states she would like to rest. Pt resting in bed with one to one present.
[2021-08-25 16:36] LABS: FREE T4 0.71 ng/dL (0.76-1.46)
[2021-08-25] MEDS: LORazepam 2 MG/ML VIAL 0.5 MG IVP (18:14)
[2021-08-25 18:24] LABS: Bilirubin Negative (Negative); Blood Trace-intact (Negative); Clarity Sl Cloudy (Clear); Glucose Negative (Negative); Ketones Negative (Negative); Leukocyte Esterase Negative (Negative); Nitrite Negative (Negative); Urobilinogen 0.2 EU/dL (Up TO 0.2)
[2021-08-25 18:34] LABS: Bacteria Negative HPF (Negative); C & S Indicated? No; Casts Negative LPF (Negative); Crystals Negative HPF (Negative); Epithelial Cells Few HPF (Negative); Mucus Negative (Negative); RBC 0-2 HPF (0-2)
[2021-08-25 18:39] LABS: *AMPHETAMINES SCREEN URINE Negative (Negative); *BARBITURATES SCREEN URINE Negative (Negative); *BENZODIAZEPINES SCREEN URINE Negative (Negative); Cannabinoids THC Negative (Negative); Cocaine Screen,Urine Negative (Negative); METHADONE URINE SCREEN Negative (Negative); OPIATES URINE SCREEN Negative (Negative); Tricyclic Antidepressants Negative (Negative)
--- NOTE | 2021-08-25 18:43 | W.PM.HP.N ---
Date of service: 08/25/21 Time of Service: 18:43 Assessment and Plan Assessment and plan (1) Alcohol intoxication: Status: Acute Assessment and plan: Alcohol intoxication with suicidal ideation. For the alcohol will place on CIWA, and will also resume the Inderal (which she is apparently on for hypertension?) which may also help with any withdrawal symptoms. As to suicidality is on precautions and will have Mental Health eval in AM. The slight increases in transaminases are noted , almost certainly alcohol related. Will trend. 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 In ER findings of note for alcohol level 308 (mental health declines eval until sober), modest elevations in transaminases and modest elevation TSH. Initial plan was to hold patient in ER until sober but ER then noticed patient becoming somewhat tremulous. Given Ativan 0.5 IV and banana bag. I was asked o evaluate for admission. Patient states she has never had significant withdrawal symptoms, just a little shakiness. States she feels safe here and is not actively considering self-harm at this time. Notably she states she has not been taking her usual meds other than Gabapentin and Mirtazapine. Meds she has not been taking include, but not limited to, Inderal and Synthroid. Review of Systems Narrative: per HPI PFSH All Active Problems Alcohol intoxication (Acute) Suicidal ideation (Acute) HTN (hypertension) (Chronic) Osteoporosis (Chronic) Tremor of both hands (Acute) Anxiety (Chronic) Chronic liver disease (Acute) US 05/2019- likely r/t ETOH Phrygian cap (Acute) with thickening- gen surg consult placed Hypothyroid (Chronic) Alcohol abuse, in remission (Acute) Fatigue (Acute) Peripheral neuropathy (Acute) Cirrhosis with alcoholism (Acute) Insomnia (Acute) Depression (Acute 04/09/15) Medical History Abnormal serum protein electrophoresis 06/23/2019- repeat levels recommended in 6 months- normal Anemia Bilateral breast cysts left-1998 right-2004 Collagenous colitis Compression fracture of lumbar spine, non-traumatic Falls Family history of diabetes mellitus in father Foot pain Gallstones HTN (hypertension) Poor appetite RLQ abdominal pain Shoulder pain, bilateral Tobacco dependence Underweight due to inadequate caloric intake Vaginal high risk HPV DNA test positive (04/09/15) Weight loss Surgical History No significant past surgical history Family History Mother Diabetes Heart disease Hyperlipidemia Stroke Father Diabetes Heart disease Hyperlipidemia Brother Diabetes Heart disease Hyperlipidemia Maternal Cousin Family hx-breast malignancy Social History Smoking/Tobacco Use Status: Current every day Tobacco Type: cigarettes Smoking risk assessment performed?: Yes Alcohol Intake: current Alcohol Intake frequency: 0-2 drinks per day Details: Quit smoking and drinking after her hospitalisation at [facility] [place] in apr 2019 Drug use: Never Substance use type: does not use Details: drinks vodka daily Household members: other Housing: other Details: father Current gender identity: female Do you feel safe at home: Yes Do you feel safe in your relationship?: Yes Additional Social history: pt. lives with father he is elderly . she has been falling at home and he is unable to get her up Meds Allergies and Home Medications Allergies Allergy/AdvReac Type Severity Reaction Status Date / Time No Known Allergies Allergy Verified 08/25/21 14:47 Home Medications Medication Instructions Recorded Confirmed Type ferrous sulfate 15 mg iron (75 PO 02/08/20 04/04/21 History mg)/mL oral drops multivitamin-iron 9 mg-folic acid 1 tab PO DAILY #90 tab 02/23/20 08/25/21 Rx 400 mcg-calcium and minerals tablet ibuprofen 200 mg tablet (Motrin IB) 200 mg PO Q6H PRN 03/16/20 04/04/21 History ascorbate calcium (vitamin C) 500 500 mg PO BID #60 tab 01/15/21 08/25/21 Rx mg tablet cholecalciferol (vitamin D3) 125 125 mcg PO DAILY #30 cap 01/15/21 08/25/21 Rx mcg (5,000 unit) capsule melatonin 3 mg capsule 3 mg PO HS #30 cap 01/15/21 08/25/21 Rx alendronate 70 mg tablet (Fosamax) 70 mg PO QWEEK #13 tab 04/04/21 08/25/21 Rx budesonide 3 mg 3 mg PO DAILY PRN #60 cap 04/04/21 08/25/21 Rx capsule,delayed,extended release carvedilol 6.25 mg tablet 6.25 mg PO BID #180 tab 04/04/21 08/25/21 Rx duloxetine 60 mg capsule,delayed 60 mg PO DAILY #90 cap 04/04/21 08/25/21 Rx release folic acid 1 mg tablet 1 mg PO DAILY #90 tab 04/04/21 08/25/21 Rx gabapentin 300 mg capsule 600 mg PO QHS #90 cap 04/04/21 08/25/21 Rx levothyroxine 50 mcg capsule 50 mcg PO DAILY #90 cap 04/04/21 08/25/21 Rx mirtazapine 15 mg tablet 15 mg PO QHS #90 tab 04/04/21 08/25/21 Rx thiamine HCl (vitamin B1) 100 mg 100 mg PO DAILY #90 tab 04/04/21 08/25/21 Rx tablet fluoxetine 20 mg capsule 20 mg PO DAILY #90 cap 06/26/21 08/25/21 Rx propranolol 60 mg capsule,24 60 mg PO DAILY #90 cap 06/26/21 08/25/21 Rx hr,extended release Exam Narrative Exam Narrative: 144/85, 105, 36.8, 20, 95% RA. HEENT atraumatic; neck supple; lungs clear; heart RRR; abdomen soft and NT; extremities w/o edema, superficial transverse laceration overlying ventral surface left wrist, dry and clean, and edges well apposed. Neuro Ox3, lucid, moves all 4s Results Labs Result diagrams: 08/25/21 15:43 08/25/21 15:43 Labs: Laboratory Results - last 24 hr 08/25/21 08/25/21 08/25/21 15:43 15:43 15:43 WBC 5.30 RBC 3.94 Hgb 13.3 Hct 39.9 MCV 101.3 H MCH 33.8 H MCHC 33.3 RDW 15.5 H Plt Count 205 MPV 9.9 Immature Gran % 0.2 Neutrophils % 29.6 Lymphocytes % 53.2 Monocytes % 12.8 Eosinophils % 2.3 Basophils % 1.9 Nucleated RBC % 0.0 Absolute Neutrophils 1.57 Absolute Lymphocytes 2.82 Absolute Monocytes 0.68 Absolute Eosinophils 0.12 Absolute Basophils 0.10 Sodium 142 Potassium 4.1 Chloride 102 Carbon Dioxide 28.6 Anion Gap 11.4 H BUN 21 H Creatinine 0.7 Estimated GFR/1.73 m2 >= 60.00 Glucose 91 Calcium 8.1 L Magnesium 2.3 Total Bilirubin 0.1 L AST 82 H ALT 83 H Alkaline Phosphatase 113 Troponin I < 50 Total Protein 6.8 Albumin 3.4 TSH Free T4 Urine Color Urine Clarity Urine pH Ur Specific Carpenter Urine Protein Urine Ketones Urine Blood Urine Nitrite Urine Bilirubin Urine Urobilinogen Ur Leukocyte Esterase Urine RBC Urine WBC Ur Epithelial Cells Urine Crystals Urine Bacteria Urine Casts Urine Mucus Ur Culture Indicated? Urine Glucose Urine Opiates Screen Urine Methadone Screen Ur Barbiturates Screen Ur Tricyclics Screen Ur Amphetamines Screen U Benzodiazepines Scrn Urine Cocaine Screen Ur THC Screen Ethyl Alcohol 308.7 H COVID-19 Source Nasal/Nares SARS-CoV-2 (PCR) Negative 08/25/21 08/25/21 08/25/21 15:43 18:13 18:13 WBC RBC Hgb Hct MCV MCH MCHC RDW Plt Count MPV Immature Gran % Neutrophils % Lymphocytes % Monocytes % Eosinophils % Basophils % Nucleated RBC % Absolute Neutrophils Absolute Lymphocytes Absolute Monocytes Absolute Eosinophils Absolute Basophils Sodium Potassium Chloride Carbon Dioxide Anion Gap BUN Creatinine Estimated GFR/1.73 m2 Glucose Calcium Magnesium Total Bilirubin AST ALT Alkaline Phosphatase Troponin I Total Protein Albumin TSH 9.20 H Free T4 0.71 L Urine Color Yellow Urine Clarity Sl Cloudy Urine pH 6.0 Ur Specific Carpenter 1.020 Urine Protein 30 H Urine Ketones Negative Urine Blood Trace-intact H Urine Nitrite Negative Urine Bilirubin Negative Urine Urobilinogen 0.2 Ur Leukocyte Esterase Negative Urine RBC 0-2 Urine WBC 3-5 Ur Epithelial Cells Few Urine Crystals Negative Urine Bacteria Negative Urine Casts Negative Urine Mucus Negative Ur Culture Indicated? No Urine Glucose Negative Urine Opiates Screen Negative Urine Methadone Screen Negative Ur Barbiturates Screen Negative Ur Tricyclics Screen Negative Ur Amphetamines Screen Negative U Benzodiazepines Scrn Negative Urine Cocaine Screen Negative Ur THC Screen Negative Ethyl Alcohol COVID-19 Source SARS-CoV-2 (PCR) Last Vital Signs Temp 36.8 C 08/25/21 18:02 Pulse 105 H 08/25/21 18:02 Resp 20 08/25/21 18:02 BP 144/85 H 08/25/21 18:02 Pulse Ox 95 08/25/21 18:02 PAWSS Have you Been Recently Intoxicated or Drunk Within the Last 30 days?: Yes Have you Ever Experienced Previous Episodes of Alcohol Withdrawal?: Yes Have you ever Experienced Withdrawal Seizures?: No Have you ever Experienced Delirium Tremens(DT)s?: Yes Have you ever undergone Alcohol Rehabilitation Treatment (i.e, inpt ot outpatient treatment programs)?: Yes Have you ever Experienced Blackouts?: Yes Have you ever Combined Alcohol with other Downers within the last 90 days?: Yes Have you ever Combined Alcohol with any other Substance of Abuse during the last 90 days?: No Positive Blood Alcohol level on Presentation? [PCS.BAL]: Yes Evidence of Increased Autonomic Activity (i.e. HR>120, tremor, sweating, agitation, nausea)?: Yes Result: 7
[2021-08-25] MEDS: LORazepam 1 MG TAB PO/SL (20:21)
[2021-08-25] MEDS: Propranolol 60 MG CAPCR PO (20:22)
[2021-08-25] MEDS: Gabapentin 300 MG CAP 600 MG PO ×2 (20:22→22:12)
[2021-08-25] MEDS: Nicotine 21 MG/24 HR PATCH TD ×2 (20:22)
[2021-08-25] MEDS: LORazepam 2 MG/ML VIAL 1 MG IVP (20:44)
[2021-08-25] MEDS: Ondansetron 4 MG/2 ML VIAL IVP (20:45)
[2021-08-25] MEDS: Mirtazapine 15 MG TAB PO (22:13)
[2021-08-25] MEDS: Melatonin 3 MG TAB PO (22:13)
[2021-08-26] VITALS (42 sets, daily range): BP systolic 145–170; BP diastolic 91–104; PULSE 75–155; RESP 14–17; TEMP 35.6–37.3; O2SAT 92–98
[2021-08-26] MEDS: LORazepam 1 MG TAB PO/SL ×4 (00:04→20:11)
[2021-08-26] MEDS: LORazepam 2 MG/ML VIAL 1 MG IVP (03:34)
[2021-08-26] MEDS: Levothyroxine 50 MCG TAB PO (06:31)
[2021-08-26 06:42] LABS: ALT 77 U/L (14-59); AST 96 U/L (15-37)
[2021-08-26 06:57] LABS: ETHANOL BLOOD < 3.0 mg/dL (<10)
[2021-08-26 08:35] LABS: Lab Add On Test DONE
[2021-08-26 08:49] LABS: ALT 76 U/L (14-59); AST 97 U/L (15-37); Alkaline Phosphatase 103 U/L (46-116); Bilirubin, Direct 0.1 mg/dL (0.0-0.2); Bilirubin, Total 0.3 mg/dL (0.2-1.0)
[2021-08-26] MEDS: Multivitamin TAB 1 TAB PO (08:55)
[2021-08-26] MEDS: Thiamine 100 MG TAB PO (08:55)
[2021-08-26] MEDS: Folic Acid 1 MG TAB PO (08:56)
[2021-08-26] MEDS: Normal Saline Flush 10 ML SYR IVP ×2 (08:56→15:05)
--- NOTE | 2021-08-26 09:08 | PDOC.CMIN ---
- If Service Date Differs Date of service: 08/26/21 Time of Service: 09:08 Care Management Initial Assess REASON FOR HOSPITALIZATION:: Alcohol intoxication, suicidal ideation PAST MEDICAL HISTORY/PAST SURGICAL HISTORY:: All Active Problems. Alcohol intoxication (Acute). Suicidal ideation (Acute). HTN (hypertension) (Chronic). Osteoporosis (Chronic). Tremor of both hands (Acute). Anxiety (Chronic). Chronic liver disease (Acute). [place] 05/2019- likely r/t ETOH. Phrygian cap (Acute). with thickening- gen surg consult placed . Hypothyroid (Chronic). Alcohol abuse, in remission (Acute). Fatigue (Acute). Peripheral neuropathy (Acute). Cirrhosis with alcoholism (Acute). Insomnia (Acute). Depression (Acute 04/09/15). Medical History. Abnormal serum protein electrophoresis. 06/23/2019- repeat levels recommended in 6 months- normal. Anemia. Bilateral breast cysts. left-1998. right-2004. Collagenous colitis. Compression fracture of lumbar spine, non-traumatic. Falls. Family history of diabetes mellitus in father. Foot pain. Gallstones. HTN (hypertension). Poor appetite. RLQ abdominal pain. Shoulder pain, bilateral. Tobacco dependence. Underweight due to inadequate caloric intake. Vaginal high risk HPV DNA test positive (04/09/15). Weight loss. Surgical History. No significant past surgical history PREVIOUS FUNCTIONAL STATUS/SOCIAL/FAMILY SUPPORTS:: Christa lives in [place] with her father, Bela. Her brother, Hero also lives nearby. She is independent at baseline. CURRENT FUNCTIONAL STATUS:: Christa was sitting up in a chair when WILIAM met with her. She stated that she is not feeling great today. She denies SI/HI currently, and stated that she usually feels suicidal when she is drinking. She stated that she has been hospitalized before, at and [facility], and she felt that it was helpful. She stated that when she returned from hospitalization, she was successful at not drinking for a long period of time, but in a moment of weakness she drank. WILIAM discussed the option of adding a Black Top Roller to support her at home, after she is discharged. She is agreeable to talking to a head strength and conditioning coach, and is agreeable to voluntary admission to an inpatient psychiatric facility as well. Currently, she is not medically cleared, as she is on CIWA protocol, but once she is cleared, she will be seen by [facility] to help determine her plan. CM will continue to follow. ADVANCE DIRECTIVES:: None on file. Has patient been provided with info about the portal/API?: Yes Did the patient sign up for the portal?: No CODE STATUS:: Full Code INSURANCE COVERAGE / FINANCIAL ISSUES:: [facility] CURRENT HOME/COMMUNITY SERVICES/EQUIPMENT:: No current services or equipment. She used to see Melisa Kelly at [facility], but is not currently. PRIMARY CARE PHYSICIAN:: Chapis Siddiqui POTENTIAL DISCHARGE NEEDS:: Evaluation by [facility] once medically cleared, possible referrals to inpatient psychiatric treatment, follow up appointments. PATIENT/FAMILY EDUCATION NEEDS:: Review discharge instructions and limitations, discussion of self care needs including ask me three. ANTICIPATED BARRIERS TO DISCHARGE:: None identified at this time. TRANSPORTATION:: To be determined by disposition. PLAN:: Christa will continue to be monitored closely while awaiting medical clearance. Once she is medically cleared, she will meet with [facility] to determine if she meets criteria for inpatient psychiatric hospitalization. Her transport will be determined based on her disposition. She will follow up with her PCP and discharge plan of care. CM will continue to follow.
[2021-08-26 09:28] LABS: Folate 11.8 ng/mL (8.6-20.0); Vitamin B12 339 pg/mL (193-986)
[2021-08-26 09:46] LABS: Abs Immature Grans 0.01 10^3/uL (0.0-0.06); Absolute Basophil Count 0.03 10^3/uL (0.0-0.2); Absolute Eosinophil Count 0.06 10^3/uL (0.0-0.7); Absolute Lymphocyte Count 1.11 10^3/uL (1.2-3.4); Absolute Monocyte Count 0.61 10^3/uL (0.1-0.8); Absolute Neutrophil Count 2.67 10^3/uL (1.2-6.7); Basophils % 0.7; Eosinophils % 1.3; HCT 37.8 % (36.0-46.0); HGB 12.7 g/dL (11.2-15.7); Immature Grans % 0.2; Lymphocytes % 24.7; MCHC 33.6 % (32.0-36.0); MCV 101.1 fL (80-95); MPV 9.6 fL (8.0-11.0); Monocytes % 13.6; Neutrophils % 59.5; Platelet Count 163 10^3/uL (130-400); RBC 3.74 10^6/uL (3.93-5.22); RDW 15.4 % (11.7-14.6); RDW-SD 57.7 fL; WBC 4.49 10^3/uL (4.4-10.8)
[2021-08-26 09:55] LABS: Anion Gap 7.7 mmol/L (3-11); BUN 14 mg/dL (7-18); CO2 26.3 mmol/L (21.0-32.0); CREATININE 0.6 mg/dL (0.55-1.02); Calcium 7.6 mg/dL (8.5-10.1); Chloride 103 mmol/L (98-107); Glucose 137 mg/dL (74-106); Potassium 3.9 mmol/L (3.5-5.1); Sodium 137 mmol/L (136-145)
[2021-08-26] MEDS: Carvedilol 6.25 MG TAB PO ×2 (10:56→20:10)
--- NOTE | 2021-08-26 13:47 | CMSP_ITS ---
- If Service Date Differs Date of service: 08/26/21 Time of Service: 13:48 Care Management Safety Plan Status: Interim - Reason for Wait Reason for Wait: Medical Clearance CM will respond to assess patient after patient has been medically cleared and assessed by screener. If screener deems patient meets criteria for psychiatric stabilization CM will facilitate interdepartmental huddle with [facility] screener for safety planning considerations and meet with patient to review [facility] policy and safety plan, establish individual wishes for treatment and maintain patient rights. In the interim; please note safety plan below to guide patient care while awaiting further assessment in the ED. SAFETY PLAN: 1. Will remain on suicide precautions and in paper clothes. 2. Will remain in room under direct supervision of one-on-one staff at all times provided by CHIKA, PLATE WASHER geospatial information scientist. 3. May have paper cups, plates, finger foods as well as a cardboard spoon with which to eat meals. 4. Follow [facility] Management of the Admitted Behavioral Health Patient policy. 5. Comfort bath system or shower, at RN discretion. 6. personal belongings limited, at RN discretion. 7. No visitors at this time. 8.Incoming/Outgoing calls using [facility] phone, at RN discretion. 9. Due to VOLUNTARY status, if patient wishes to leave [facility], staff will contact [facility] Crisis Screener ([phone]) and On-Call Slicing Machine Operator ([phone]) as soon as possible. In the event of elopement, notify [facility] Police ([phone]). If deemed appropriate for inpatient psychiatric care, safety plan will be establ ished with patient, and care team, to adhere to patient goals, identify restrictions based on behavioral status, address nutrition, and determine allowed personal belongings, tools for hygiene and personal care. As well plan will determine level of activity including ambulation, level of supervision, visitors, and determine privileges based on level of acuity, behaviors and level of engagement by patient.
[2021-08-26] MEDS: Gabapentin 300 MG CAP PO ×2 (15:04→20:11)
[2021-08-26] MEDS: Ondansetron 4 MG/2 ML VIAL IVP (15:05)
--- NOTE | 2021-08-26 15:12 | PGE_ITS ---
Date of Service Date of service: 08/26/21 Time of Service: Assessment and Plan Assessment and plan (1) Alcohol withdrawal: Start date: 08/26/21 Start time: Status: Acute Assessment and plan: Not withdrawal at this time. She does having shaking, however this is not new for her. She has hx of tremors. She is on propranolol see subjective. (2) Suicidal ideation: Start date: 08/26/21 Start time: Status: Acute Assessment and plan: This appears to only happen when she drinks. She states that her drinking makes her angry and then she gets to a point that she wants to hurt her self. No SI or HI at this time Once cleared from ETOH standpoint MH can see her (3) Tremor of both hands: Start date: 08/26/21 Start time: Status: Chronic Assessment and plan: chronic, as above (4) HTN (hypertension): Start date: 08/26/21 Start time: Status: Chronic Assessment and plan: continue BP medications (5) Anxiety: Start date: 08/26/21 Start time: Status: Chronic Assessment and plan: Suffers severe anxiety. Will give lorazepam QID prn for anxiety and add Gapabentin TID to help with anxiety to limit use of lorazepam (6) Hypothyroid: Start date: 08/26/21 Start time: Status: Chronic Assessment and plan: continue levothyroxine (7) Depression: Start date: 08/26/21 Start time: Status: Chronic Assessment and plan: Patient admits to severe depression, on her med list she takes fluoxitine and duloxetine. however she admits to not taking them d/t not feeling like it. discussed with Dr. Mar Qualifiers: Depression Type: other depression Qualified Code(s): F32.89 - Other specified depressive episodes Subjective Subjective Patient reports: no new complaints Interval history since last seen: Patient states that she always has shaken and it gets worse when she is anxious. She does endorse going through alcohol w/d however she states she can not rem ember the details of the time, she states she was found with a low body temp and she was in [facility] [place] for 6 months going through detox. She states the entire experience is foggy. At this time she is not going through w/d however based on this information will keep on CIWA with 1:1 sitter as she is only at 48 hours. Will monitor another 24 if no signs then she can be medically cleared. She states she suffers severe anxiety. She also has neuropathy in her lower extremities and has been splitting her gabapentin taking 2 a day d/t the pain being bad enough. Will schedule TID, this will also help with anxiety and ETOH w/d. She stated that she not having any thought of SI or HI at this time continue 1:1 at this time until cleared by MH. Exam Const General: cooperative, comfortable, no acute distress and ill appearing chronically Orientation: alert, awake and oriented x3 Eyes Pupils: PERRL EOM: EOM intact bilaterally Neck Neck: normal visual inspection, full ROM and no lymphadenopathy Lymphatic: no lymphadenopathy noted Chest Chest: normal inspection of the chest Resp Effort & Inspection: normal respiratory effort Auscultation: clear to auscultation bilaterally Cardio Jugular venous pressure: no JVD Rate: regular rate Rhythm: regular rhythm Heart Sounds: S1 normal and S2 normal GI Inspection: obesity Palpation: soft Auscultation: normal bowel sounds Extrem Right upper extremity: full ROM; No abnormal to inspection (tremors, normal for patient worse with anxiety) Left upper extremity: full ROM; No abnormal to inspection (tremors, normal for patient worse with anxiety) Psych Appearance: grossly normal Speech and Movement: speech and movement normal Mood: anxious mood Affect: anxious affect Attitude: cooperative Thought Process: normal Thought Content: other (when drinking compulsive, easily angers and self harms with SI) Insight: fair Judgment: fair Objective Last Vital Signs Temp 36.8 C 08/26/21 11:42 Pulse 82 08/26/21 11:42 Resp 16 08/26/21 11:42 BP 154/95 H 08/26/21 11:42 Pulse Ox 94 08/26/21 11:42 Laboratory Results - last 24 hr 08/25/21 08/25/21 08/25/21 15:43 15:43 15:43 WBC 5.30 RBC 3.94 Hgb 13.3 Hct 39.9 MCV 101.3 H MCH 33.8 H MCHC 33.3 RDW 15.5 H Plt Count 205 MPV 9.9 Immature Gran % 0.2 Neutrophils % 29.6 Lymphocytes % 53.2 Monocytes % 12.8 Eosinophils % 2.3 Basophils % 1.9 Nucleated RBC % 0.0 Absolute Neutrophils 1.57 Absolute Lymphocytes 2.82 Absolute Monocytes 0.68 Absolute Eosinophils 0.12 Absolute Basophils 0.10 Sodium 142 Potassium 4.1 Chloride 102 Carbon Dioxide 28.6 Anion Gap 11.4 H BUN 21 H Creatinine 0.7 Estimated GFR/1.73 m2 >= 60.00 Glucose 91 Calcium 8.1 L Magnesium 2.3 Total Bilirubin 0.1 L Conjugated Bilirubin AST 82 H ALT 83 H Alkaline Phosphatase 113 Troponin I < 50 Total Protein 6.8 Albumin 3.4 Vitamin B12 Folate TSH Free T4 Urine Color Urine Clarity Urine pH Ur Specific [place] Urine Protein Urine Ketones Urine Blood Urine Nitrite Urine Bilirubin Urine Urobilinogen Ur Leukocyte Esterase Urine RBC Urine WBC Ur Epithelial Cells Urine Crystals Urine Bacteria Urine Casts Urine Mucus Ur Culture Indicated? Urine Glucose Urine Opiates Screen Urine Methadone Screen Ur Barbiturates Screen Ur Tricyclics Screen Ur Amphetamines Screen U Benzodiazepines Scrn Urine Cocaine Screen Ur THC Screen Ethyl Alcohol 308.7 H COVID-19 Source Nasal/Nares SARS-CoV-2 (PCR) Negative Add-On Test Request 08/25/21 08/25/21 08/25/21 15:43 18:13 18:13 WBC RBC Hgb Hct MCV MCH MCHC RDW Plt Count MPV Immature Gran % Neutrophils % Lymphocytes % Monocytes % Eosinophils % Basophils % Nucleated RBC % Absolute Neutrophils Absolute Lymphocytes Absolute Monocytes Absolute Eosinophils Absolute Basophils Sodium Potassium Chloride Carbon Dioxide Anion Gap BUN Creatinine Estimated GFR/1.73 m2 Glucose Calcium Magnesium Total Bilirubin Conjugated Bilirubin AST ALT Alkaline Phosphatase Troponin I Total Protein Albumin Vitamin B12 Folate TSH 9.20 H Free T4 0.71 L Urine Color Yellow Urine Clarity Sl Cloudy Urine pH 6.0 Ur Specific [place] 1.020 Urine Protein 30 H Urine Ketones Negative Urine Blood Trace-intact H Urine Nitrite Negative Urine Bilirubin Negative Urine Urobilinogen 0.2 Ur Leukocyte Esterase Negative Urine RBC 0-2 Urine WBC 3-5 Ur Epithelial Cells Few Urine Crystals Negative Urine Bacteria Negative Urine Casts Negative Urine Mucus Negative Ur Culture Indicated? No Urine Glucose Negative Urine Opiates Screen Negative Urine Methadone Screen Negative Ur Barbiturates Screen Negative Ur Tricyclics Screen Negative Ur Amphetamines Screen Negative U Benzodiazepines Scrn Negative Urine Cocaine Screen Negative Ur THC Screen Negative Ethyl Alcohol COVID-19 Source SARS-CoV-2 (PCR) Add-On Test Request 08/26/21 08/26/21 08/26/21 06:15 06:15 06:15 WBC RBC Hgb Hct MCV MCH MCHC RDW Plt Count MPV Immature Gran % Neutrophils % Lymphocytes % Monocytes % Eosinophils % Basophils % Nucleated RBC % Absolute Neutrophils Absolute Lymphocytes Absolute Monocytes Absolute Eosinophils Absolute Basophils Sodium Potassium Chloride Carbon Dioxide Anion Gap BUN Creatinine Estimated GFR/1.73 m2 Glucose Calcium Magnesium Total Bilirubin 0.3 Conjugated Bilirubin 0.1 AST 96 H 97 H ALT 77 H 76 H Alkaline Phosphatase 103 Troponin I Total Protein 6.0 L Albumin 3.0 L Vitamin B12 339 Folate 11.8 TSH Free T4 Urine Color Urine Clarity Urine pH Ur Specific [place] Urine Protein Urine Ketones Urine Blood Urine Nitrite Urine Bilirubin Urine Urobilinogen Ur Leukocyte Esterase Urine RBC Urine WBC Ur Epithelial Cells Urine Crystals Urine Bacteria Urine Casts Urine Mucus Ur Culture Indicated? Urine Glucose Urine Opiates Screen Urine Methadone Screen Ur Barbiturates Screen Ur Tricyclics Screen Ur Amphetamines Screen U Benzodiazepines Scrn Urine Cocaine Screen Ur THC Screen Ethyl Alcohol < 3.0 COVID-19 Source SARS-CoV-2 (PCR) Add-On Test Request DONE 08/26/21 08/26/21 09:40 09:40 WBC 4.49 RBC 3.74 L Hgb 12.7 Hct 37.8 MCV 101.1 H MCH 34.0 H MCHC 33.6 RDW 15.4 H Plt Count 163 MPV 9.6 Immature Gran % 0.2 Neutrophils % 59.5 Lymphocytes % 24.7 Monocytes % 13.6 Eosinophils % 1.3 Basophils % 0.7 Nucleated RBC % 0.0 Absolute Neutrophils 2.67 Absolute Lymphocytes 1.11 L Absolute Monocytes 0.61 Absolute Eosinophils 0.06 Absolute Basophils 0.03 Sodium 137 Potassium 3.9 Chloride 103 Carbon Dioxide 26.3 Anion Gap 7.7 BUN 14 D Creatinine 0.6 Estimated GFR/1.73 m2 >= 60.00 Glucose 137 H Calcium 7.6 L Magnesium Total Bilirubin Conjugated Bilirubin AST ALT Alkaline Phosphatase Troponin I Total Protein Albumin Vitamin B12 Folate TSH Free T4 Urine Color Urine Clarity Urine pH Ur Specific [place] Urine Protein Urine Ketones Urine Blood Urine Nitrite Urine Bilirubin Urine Urobilinogen Ur Leukocyte Esterase Urine RBC Urine WBC Ur Epithelial Cells Urine Crystals Urine Bacteria Urine Casts Urine Mucus Ur Culture Indicated? Urine Glucose Urine Opiates Screen Urine Methadone Screen Ur Barbiturates Screen Ur Tricyclics Screen Ur Amphetamines Screen U Benzodiazepines Scrn Urine Cocaine Screen Ur THC Screen Ethyl Alcohol COVID-19 Source SARS-CoV-2 (PCR) Add-On Test Request PAWSS Have you Been Recently Intoxicated or Drunk Within the Last 30 days?: Yes Have you Ever Experienced Previous Episodes of Alcohol Withdrawal?: Yes Have you ever Experienced Withdrawal Seizures?: No Have you ever Experienced Delirium Tremens(DT)s?: Yes Have you ever undergone Alcohol Rehabilitation Treatment (i.e, inpt ot outpatient treatment programs)?: Yes Have you ever Experienced Blackouts?: Yes Have you ever Combined Alcohol with other Downers within the last 90 days?: Yes Have you ever Combined Alcohol with any other Substance of Abuse during the last 90 days?: No Positive Blood Alcohol level on Presentation? [PCS.BAL]: Yes Evidence of Increased Autonomic Activity (i.e. HR>120, tremor, sweating, agitation, nausea)?: Yes Result: 7
[2021-08-26] MEDS: Melatonin 3 MG TAB PO (22:05)
[2021-08-26] MEDS: Mirtazapine 15 MG TAB PO (22:06)
[2021-08-27] VITALS (9 sets, daily range): BP systolic 120–158; BP diastolic 79–98; PULSE 79–91; RESP 16–18; TEMP 35–37.2; O2SAT 92–98
[2021-08-27] MEDS: Levothyroxine 50 MCG TAB PO (05:16)
[2021-08-27 06:21] LABS: Abs Immature Grans 0.02 10^3/uL (0.0-0.06); Absolute Basophil Count 0.02 10^3/uL (0.0-0.2); Absolute Eosinophil Count 0.12 10^3/uL (0.0-0.7); Absolute Lymphocyte Count 1.23 10^3/uL (1.2-3.4); Absolute Monocyte Count 0.59 10^3/uL (0.1-0.8); Absolute Neutrophil Count 1.62 10^3/uL (1.2-6.7); Basophils % 0.6; Eosinophils % 3.3; HCT 39.3 % (36.0-46.0); HGB 12.7 g/dL (11.2-15.7); Immature Grans % 0.6; Lymphocytes % 34.2; MCH 33.6 pg (27.0-33.0); MCHC 32.3 % (32.0-36.0); MPV 10.3 fL (8.0-11.0); Monocytes % 16.4; Neutrophils % 44.9; Platelet Count 151 10^3/uL (130-400); RBC 3.78 10^6/uL (3.93-5.22); RDW 15.3 % (11.7-14.6); RDW-SD 59.3 fL
[2021-08-27 06:31] LABS: Anion Gap 7.7 mmol/L (3-11); BUN 12 mg/dL (7-18); CO2 26.3 mmol/L (21.0-32.0); CREATININE 0.7 mg/dL (0.55-1.02); Calcium 8.1 mg/dL (8.5-10.1); Chloride 106 mmol/L (98-107); Glucose 125 mg/dL (74-106); Magnesium 2.1 mg/dL (1.8-2.4); Potassium 3.9 mmol/L (3.5-5.1); Sodium 140 mmol/L (136-145)
[2021-08-27] MEDS: Thiamine 100 MG TAB PO (08:09)
[2021-08-27] MEDS: Multivitamin TAB 1 TAB PO (08:10)
[2021-08-27] MEDS: LORazepam 1 MG TAB PO/SL (08:10)
[2021-08-27] MEDS: Gabapentin 300 MG CAP PO ×3 (08:10→19:23)
[2021-08-27] MEDS: Folic Acid 1 MG TAB PO (08:10)
[2021-08-27] MEDS: Carvedilol 6.25 MG TAB PO ×2 (08:10→19:23)
[2021-08-27] MEDS: Nicotine 21 MG/24 HR PATCH TD (08:11)
[2021-08-27] MEDS: Propranolol 60 MG CAPCR PO (08:11)
[2021-08-27] MEDS: Ondansetron 4 MG/2 ML VIAL IVP (11:41)
--- NOTE | 2021-08-27 14:24 | W.PM.PROGNOT ---
Date of Service Date of service: 08/27/21 Time of Service: 12:00 Assessment and Plan Assessment and plan (1) Alcohol withdrawal: Start date: 08/27/21 Start time: 12:00 Status: Acute Assessment and plan: Worse with anxiety. She wakes up with anxiety at home d/t fear of fathers mood (see subjective). Severe panic attack after waking up this am. continue 1:1 until cleared by MH Given ativan to help with anxiety. NIKITA is a 2 and she is on day 3 of w/d. She will likely be medically cleared tomorrow if CIWA continue to stay low and MH can see her (2) Suicidal ideation: Start date: 08/27/21 Start time: 12:00 Status: Acute Assessment and plan: This appears to only happen when she drinks. She states that her drinking makes her angry and then she gets to a point that she wants to hurt her self. No SI or HI at this time Once cleared from ETOH standpoint MH can see her as above (3) Tremor of both hands: Start date: 08/27/21 Start time: 12:00 Status: Chronic Assessment and plan: chronic, as above (4) HTN (hypertension): Start date: 08/27/21 Start time: 12:00 Status: Chronic Assessment and plan: continue BP medications (5) Anxiety: Start date: 08/27/21 Start time: 12:00 Status: Chronic Assessment and plan: Suffers severe anxiety. Wakes up with anxiety. Will give lorazepam QID prn for anxiety and add Gapabentin TID to help with anxiety to limit use of lorazepam Willing to seek therapy to address issue (6) Hypothyroid: Start date: 08/27/21 Start time: 12:00 Status: Chronic Assessment and plan: continue levothyroxine (7) Depression: Start date: 08/27/21 Start time: 12:00 Status: Chronic Assessment and plan: Patient admits to severe depression, on her med list she takes fluoxitine and duloxetine. however she admits to not taking them d/t not feeling like it. Discussed with Dr. Morrison Qualifiers: Depression Type: other depression Qualified Code(s): F32.89 - Other specified depressive episodes Subjective Subjective Patient reports: other Interval history since last seen: Patient had a feeling of anxiety this am, which led to worsening shaking with nausea and overwhelming feeling that caused her to cry and have a break down. After speaking with her she states she wakes up with anxiety on a daily basis because she is afraid of what her father's mood is going to be like this anxiety causes her to be worse and drink. She has seen a therapist in the past and is willing to try again. She also c/o neuropathy to her hands, worse in the am increase gabapentin to 600 in am Exam Const General: cooperative, comfortable, no acute distress and ill appearing chronically Orientation: alert, awake and oriented x3 Eyes Pupils: PERRL EOM: EOM intact bilaterally Neck Neck: normal visual inspection, full ROM and no lymphadenopathy Lymphatic: no lymphadenopathy noted Chest Chest: normal inspection of the chest Resp Effort & Inspection: normal respiratory effort Auscultation: clear to auscultation bilaterally Cardio Jugular venous pressure: no JVD Rate: regular rate Rhythm: regular rhythm Heart Sounds: S1 normal and S2 normal GI Inspection: obesity Palpation: soft Auscultation: normal bowel sounds Extrem Right upper extremity: full ROM; No abnormal to inspection (tremors, normal for patient worse with anxiety) Left upper extremity: full ROM; No abnormal to inspection (tremors, normal for patient worse with anxiety) Psych Appearance: grossly normal Speech and Movement: speech and movement normal Mood: anxious mood Affect: anxious affect Attitude: cooperative Thought Process: normal Thought Content: other (when drinking compulsive, easily angers and self harms with SI) Insight: fair Judgment: fair Objective Last Vital Signs Temp 36.9 C 08/27/21 13:59 Pulse 82 08/27/21 13:59 Resp 18 08/27/21 13:59 BP 147/86 H 08/27/21 13:59 Pulse Ox 95 08/27/21 13:59 Laboratory Results - last 24 hr 08/27/21 08/27/21 06:06 06:06 WBC 3.60 L RBC 3.78 L Hgb 12.7 Hct 39.3 MCV 104.0 H MCH 33.6 H MCHC 32.3 RDW 15.3 H Plt Count 151 MPV 10.3 Immature Gran % 0.6 Neutrophils % 44.9 Lymphocytes % 34.2 Monocytes % 16.4 Eosinophils % 3.3 Basophils % 0.6 Nucleated RBC % 0.0 Absolute Neutrophils 1.62 Absolute Lymphocytes 1.23 Absolute Monocytes 0.59 Absolute Eosinophils 0.12 Absolute Basophils 0.02 Sodium 140 Potassium 3.9 Chloride 106 Carbon Dioxide 26.3 Anion Gap 7.7 BUN 12 Creatinine 0.7 Estimated GFR/1.73 m2 >= 60.00 Glucose 125 H Calcium 8.1 L Magnesium 2.1 PAWSS Have you Been Recently Intoxicated or Drunk Within the Last 30 days?: Yes Have you Ever Experienced Previous Episodes of Alcohol Withdrawal?: Yes Have you ever Experienced Withdrawal Seizures?: No Have you ever Experienced Delirium Tremens(DT)s?: Yes Have you ever undergone Alcohol Rehabilitation Treatment (i.e, inpt ot outpatient treatment programs)?: Yes Have you ever Experienced Blackouts?: Yes Have you ever Combined Alcohol with other Downers within the last 90 days?: Yes Have you ever Combined Alcohol with any other Substance of Abuse during the last 90 days?: No Positive Blood Alcohol level on Presentation? [PCS.BAL]: Yes Evidence of Increased Autonomic Activity (i.e. HR>120, tremor, sweating, agitation, nausea)?: Yes Result: 7
--- NOTE | 2021-08-27 18:43 | CMPROGNOTE_ITS ---
- If Service Date Differs Date of service: 08/27/21 Time of Service: 18:43 Care Management Progress Note S/O: Christa was sitting up in bed when CM met with her today. She stated that she had a difficult morning, as she was not feeling well, and was anxious and crying. She continues to deny SI/HI today. She stated that she feels that she will be safe at home once she is medically cleared. CM explained that she will have to be medically cleared before [facility] can screen her to determine if she me ets criteria for inpatient psychiatric treatment vs return home with contract for safety. She is agreeable to meet with [facility], and is also interested in a list of therapists in the area to contact, which CM will provide. CM will continue to follow. A: Christa is a 60 year old female admitted to [facility] on 08/25/21 with alcohol intoxication, SI. P: Christa will continue to be monitored closely while awaiting medical clearance. Once she is medically cleared, she will meet with [facility] to determine if she meets criteria for inpatient psychiatric hospitalization. Her transport will be determined based on her disposition. She will follow up with her PCP and discharge plan of care. CM will continue to follow.
--- NOTE | 2021-08-27 18:51 | PDOC.CMSAFE ---
- If Service Date Differs Date of service: 08/27/21 Time of Service: 18:51 Care Management Safety Plan Status: Interim - Reason for Wait Reason for Wait: Medical Clearance CM will respond to assess patient after patient has been medically cleared and assessed by screener. If screener deems patient meets criteria for psychiatric stabilization CM will facilitate interdepartmental huddle with [facility] screener for safety planning considerations and meet with patient to review [facility] policy and safety plan, establish individual wishes for treatment and maintain patient rights. In the interim; please note safety plan below to guide patient care while awaiting further assessment in the ED. SAFETY PLAN: 1. Will remain on suicide precautions and in paper clothes. 2. Will remain in room under direct supervision of one-on-one staff at all times provided by [employer], [employer] AND footwear production machine operator. 3. May have paper cups, plates, finger foods as well as a cardboard spoon with which to eat meals. 4. Follow [facility] Management of the Admitted Behavioral Health Patient policy. 5. Comfort bath system or shower, at RN discretion. 6. personal belongings limited, at RN discretion. 7. No visitors at this time. 8.Incoming/Outgoing calls using [facility] phone, at RN discretion. 9. Due to VOLUNTARY status, if patient wishes to leave [facility], staff will contact [facility] Crisis Screener ([phone]) and On-Call Network Account Manager ([phone]) as soon as possible. In the event of elopement, notify [facility] Police ([phone]). If deemed appropriate for inpatient psychiatric care, safety plan will be established with patient, and care team, to adhere to patient goals, identify restrictions based on behavioral status, address nutrition, and determine allowed personal belongings, tools for hygiene and personal care. As well plan will determine level of activity including ambulation, level of supervision, visitors, and determine privileges based on level of acuity, behaviors and level of engagement by patient.
[2021-08-27] MEDS: Melatonin 3 MG TAB PO (21:19)
[2021-08-27] MEDS: Mirtazapine 15 MG TAB PO (21:19)
[2021-08-28 03:15] VITALS: BP 114/77; PULSE 77; RESP 18; TEMP 35.8; O2SAT 97
[2021-08-28] MEDS: Levothyroxine 50 MCG TAB PO (06:40)
[2021-08-28 07:24] VITALS: BP 126/84; PULSE 82; RESP 18; TEMP 35.9; O2SAT 94
[2021-08-28] MEDS: Carvedilol 6.25 MG TAB PO (07:45)
[2021-08-28] MEDS: Nicotine 21 MG/24 HR PATCH TD (07:45)
[2021-08-28] MEDS: Thiamine 100 MG TAB PO (07:45)
[2021-08-28] MEDS: Propranolol 60 MG CAPCR PO (07:46)
[2021-08-28] MEDS: Multivitamin TAB 1 TAB PO (07:46)
[2021-08-28] MEDS: Folic Acid 1 MG TAB PO (07:46)
[2021-08-28] MEDS: Gabapentin 300 MG CAP 600 MG PO (07:46)
[2021-08-28] MEDS: LORazepam 1 MG TAB PO/SL (11:44)
[2021-08-28] MEDS: Ondansetron 4 MG/2 ML VIAL IVP (11:44)
[2021-08-28] MEDS: Normal Saline Flush 10 ML SYR IVP (11:45)
[2021-08-28 12:37] VITALS: BP 130/86; PULSE 82; RESP 16; TEMP 36.7; O2SAT 95
--- NOTE | 2021-08-28 13:16 | CHAPLAIN ---
Christa was sitting up in bed when I visited. She has a patient cadre with her. I introduced myself, explained my role and offered support. She told me she would call for me if she needed me.
[2021-08-28] MEDS: Gabapentin 300 MG CAP PO (13:34)
--- NOTE | 2021-08-28 14:29 | PT.INIE ---
Date of service: 08/28/21 Time of Service: 14:30 PT Notes Visit Reasons: Alcohol Intoxication,Suicidal Ideation Physical Therapy Inpatient Initial Evaluation Date: 08/28/2021 Referring Doctor: Katie Conteh NP PT Orders: PT CONSULT: Eval/treat Precautions: Fall. Standard. Activity as tolerated. Patient Profile/Admitting Diagnosis: Christa is a 60-year-old female who presented to the ED on 08/21/2021 due to EtOH and suicidal ideations. Patient is post with EtOH intoxication and is referred to physical therapy to assess for safe discharge planning. PMHX: All Active Problems? Alcohol intoxication (Acute) Suicidal ideation (Acute) HTN (hypertension) (Chronic) Osteoporosis (Chronic) Tremor of both hands (Acute) Anxiety (Chronic) Chronic liver disease (Acute) 05/2019- likely r/t ETOHPhrygian cap (Acute) with thickening- gen surg consult placed Hypothyroid (Chronic) Alcohol abuse, in remission (Acute) Fatigue (Acute) Peripheral neuropathy (Acute) Cirrhosis with alcoholism (Acute) Insomnia (Acute) Depression (Acute 04/09/15) Medical History? Abnormal serum protein electrophoresis 06/23/2019- repeat levels recommended in 6 months- normalAnemia Bilateral breast cysts left-1998 right-2004 Collagenous colitis Compression fracture of lumbar spine, non-traumatic Falls Family history of diabetes mellitus in father Foot pain Gallstones HTN (hypertension) Poor appetite RLQ abdominal pain Shoulder pain, bilateral Tobacco dependence Underweight due to inadequate caloric intake Vaginal high risk HPV DNA test positive (04/09/15) Weight loss Surgical History? No significant past surgical history Social History/Home Situation: Lives with father in a private home. Modified independent with use of 4-wheeled walker prior to admission. Has a ramp to enter private home. Mother does majority of transport. Equipment Owned/DME: 4WW Subjective: Agreeable to PT consult. Expresses her concern about her overall safety going home as she only has gotten out of bed and start walking today after hospitalization for the past 3 days. Feels reassured about home health PT following through with her mobility progression. Objective: General Observation: Patient being walked by nurse Adriana and BERTHA when this PT and PT Mitra joined patient in the hallway. Mental Status: Alert and oriented as to person, place, time, and purpose. Able to pay attention, focus, and respond appropriately. Pain: Denies Vital Signs: WNL closely monitored by nursing staff. ROM: Right Upper Extremity: Shoulder Flexion WFL. Shoulder abduction WFL. Elbow flexion WFL. Wrist flexion WFL. Functional opening and closing of hand WFL. Left Upper Extremity: Shoulder Flexion WFL. Shoulder abduction WFL. Elbow flexion WFL. Wrist flexion WFL. Functional opening and closing of hand WFL. Right Lower Extremity: Hip flexion WFL. Hip abduction WFL. Knee flexion WFL. Ankle dorsiflexion WFL. Ankle plantarflexion WFL. Left Lower Extremity: Hip flexion WFL. Hip abduction WFL. Knee flexion WFL. Ankle dorsiflexion WFL. Ankle plantarflexion WFL. Strength: Right Upper Extremity: Shoulder flexors 4/5. Shoulder abductors 4/5. Elbow flexors 5/5. Elbow extensors 5/5. Surgical Training Specialist strong. Left Upper Extremity: Shoulder flexors 4/5. Shoulder abductors 4/5. Elbow flexors 5/5. Elbow extensors 5/5. Surgical Training Specialist strong. Right Lower Extremity: Hip flexors 4-/5. Hip abductors 4-/5. Knee flexors 4/5. Knee extensors 4-/5. Ankle dorsiflexors 4-/5. Ankle plantarflexors 4-/5. Left Lower Extremity: Hip flexors 4/5. Hip abductors 4/5. Knee flexors 4/5. Knee extensors 4/5. Ankle dorsiflexors consistently 4/5. Ankle plantarflexors 4/5. Bed Mobility/Transfers: Sit to stand independent Stand to sit independent Gait: Instructed patient with level surface ambulation of 150feet requiring standby assist. Shannen decreased. No loss of balance. No shortness of breath. No path deviation. Balance: Static Sitting: Normal Dynamic Sitting: Normal Static Standing: Fair Dynamic Standing: Fair Special Tests: Mobility Limitations Standardized Measure [facility] 6 clicks Basic Mobility Inpatient Short Form: Raw Score: 24 CMS Score: 0% deficit 4-stage Balance Test: Able to maintain feet together for 10 seconds, able to do same with semi-tandem with R foot leading, but is unable to with semi-tandem with L leg leading, full tandem, and one-legged stance. efe was advised to continue using FWW for mobility support at home until discharged/upgraded by home PT. Informed Consent/Education: Patient was instructed in purpose of PT consult. Reassured that as long as she uses her FWW and is followed up by HH PT, she may be safe to go home. Assessment: Patient may be safe to go home with HH PT services following. Patient has been provided with FWW prior to discharge. Christa is a 60-year-old female who presented to the ED on 08/21/2021 due to EtOH and suicidal ideations. Patient is post with EtOH intoxication and is referred to physical therapy to assess for safe discharge planning. Patient is assessed [place] a 42080 low complexity based on the following: History: 60-year-old female with past medical history as indicated above Examination: Demonstrable impairment in strength, balance, and mobility level with underlying impairments and functional limitations as exhibited above as well as deficit score of 0% utilizing the [facility] Mobility Inpatient Short Form Presentation: Stable Decision Makin low complexity Goals: N/A. PT evaluation only. Plan of Care/Treatment Plan: N/A. PT evaluation only. DISCHARGE RECOMMENDATIONS: [] Home with no services [] [X] Home with services. Home when medically cleared by hospitalist. Patient will benefit from home health PT services in order to progress mobility level using least restrictive assistive ambulatory device, assess home safety, identify additional equipment needs, and establish a functional maintenance program that will increase ability of patient to remain at home. Will benefit from the use of front wheeled walker to maximize independence and reduce fall risk at home. [] Home with outpatient PT [] [] SNF for continued rehabilitation [] [] Block Inspector Care [] [] SNF versus LTC based on ability to participate and progress [] TREATMENT CODE/TIME: 9716 x 26 minutes beginning at 14:29 PM. Thank you for the opportunity to participate in the care of this patient. Evelyn Gilliland PT, DPT, CLT [facility] [place], [place]
[2021-08-28 15:54] VITALS: BP 129/85; PULSE 85; RESP 12; TEMP 37; O2SAT 94
--- NOTE | 2021-08-28 15:59 | W.PM.DS.N ---
Date of service: 08/28/21 Time of Service: 15:59 DS: Diagnosis Discharge Diagnosis (1) Alcohol withdrawal: Status: Acute Asessment and Plan: No alcohol withdrawal s/s while hospitalized. (2) Suicidal ideation: Status: Acute Asessment and Plan: Denies suicidal ideation; cleared by MH (3) Tremor of both hands: Status: Chronic Asessment and Plan: Taking propranolol; increase gabapentin to 600 mg in the morning and 300 mg in the afternoon, and 300 mg in the evening. (4) HTN (hypertension): Status: Chronic Asessment and Plan: continue home medications (5) Anxiety: Status: Chronic Asessment and Plan: Chronic anxiety - continue coping mechanisms; medication (6) Hypothyroid: Status: Chronic Asessment and Plan: continue maintenance meds (7) Depression: Status: Chronic Asessment and Plan: Continue medications, FU with MH; return to ED if any suicidal ideation Discharge Plan Disposition Patient Disposition: HOME Condition: Stable Discharge Details Reason For Visit: Alcohol Intoxication,Suicidal Ideation Admit Date/Time: 08/25/21 18:58 Admit Provider: Suleiman Solano Attending Provider: Suleiman Solano Primary Care Provider: [facility] Hospital Course Hospital Course: Patient is a 50-year-old female with a history of alcohol abuse, cirrhosis, hypertension, hyperlipidemia, anxiety and depression who presented to the ED 08/25/2021 with alcohol intoxication and suicidal ideation for the past 2 days.? Patient states she drinks 1/2 pint of vodka daily. Patient has had previous suicide attempts in the past in which she overdosed on Tylenol few years ago.? She was admitted to [facility] for 6 weeks at that time.? She has been to [facility] for alcohol detox in the past.? Admitted for 3 days, medications adjusted, she is feeling better, cleared by mental health and we agree she is safe to go home. FU with PCP within one week; FU with mental health within one week. Home Meds and New Rx's Prescriptions: New gabapentin 300 mg capsule 300 mg PO TID Qty: 40 0RF Rx Instructions: 600 mg in the am; 300 mg @ 1400h and 300 mg @ 2000h. Continued izlafmqb-fjcs-ER-calcium-mins 9 mg iron-400 mcg tablet 1 tab PO DAILY Qty: 90 3RF ibuprofen [Motrin IB] 200 mg tablet 200 mg PO Q6H PRN0RF ascorbate calcium (vitamin C) 500 mg tablet 500 mg PO BID Qty: 60 0RF cholecalciferol (vitamin D3) 125 mcg (5,000 unit) capsule 125 mcg PO DAILY Qty: 30 0RF melatonin 3 mg capsule 3 mg PO HS Qty: 30 0RF alendronate [Fosamax] 70 mg tablet 70 mg PO QWEEK Qty: 13 4RF budesonide 3 mg capsule,delayed,extend.release 3 mg PO DAILY PRN (Reason: diarrhea) Qty: 60 3RF Rx Instructions: take 3 caps as needed carvedilol 6.25 mg tablet 6.25 mg PO BID Qty: 180 4RF duloxetine 60 mg capsule,delayed release(DR/EC) 60 mg PO DAILY Qty: 90 4RF folic acid 1 mg tablet 1 mg PO DAILY Qty: 90 3RF gabapentin 300 mg capsule 600 mg PO QHS Qty: 90 3RF levothyroxine 50 mcg capsule 50 mcg PO DAILY Qty: 90 3RF mirtazapine 15 mg tablet 15 mg PO QHS Qty: 90 4RF thiamine HCl (vitamin B1) 100 mg tablet 100 mg PO DAILY Qty: 90 3RF fluoxetine 20 mg capsule 20 mg PO DAILY Qty: 90 3RF propranolol 60 mg capsule,extended release 24 hr 60 mg PO DAILY Qty: 90 3RF ferrous sulfate 15 mg iron (75 mg)/mL Drops PO 0RF Label Comments: pt .unsure of dose Discharge Instructions Instructions: Alcohol Intoxication (DC) Additional Instructions: FU w PCP 09/05/21 @ 3 PM (appt made); FU with mental health. 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 Stand Alone Forms: Nursing Discharge Form Referrals: Chapis Siddiqui NP [Primary Care Provider] - 09/05/21 3:00 pm Activity:: Activity as Tolerated Equipment/Supplies:: No Equipment Needed Diet:: As Tolerated Discharge Orders Discharge Orders: Discharge Order (Routine); Ordered 08/28/21 Ordered By: Marjan Proctor DS: Summary Time Spent with Patient providing and/or coordinating discharge services: Less than 30 minutes Status at Discharge Functional status at discharge: uses cane/walker Overall status at discharge: patient is progressing back to baseline Mental Status: mental status grossly normal Speech and Movement: speech and movement normal Mood: anxious mood Affect: normal affect and anxious affect Quality: AMI Clinical Trial Participant: No Exam Const General: cooperative, healthy appearing, comfortable, no acute distress, ill appearing chronically and intoxicated appearing Orientation: alert, awake and oriented x3 HENMT Head: normal to inspection Ears: hearing grossly normal bilaterally, external ears normal and TM's normal bilaterally General nose exam: external nose normal Face and sinus: normal facial exam Mouth: oral mucosae normal and mucous membranes dry Teeth and gingiva: dentition normal Throat: posterior oropharynx normal Eyes General: appearance normal, both eyes and all related structures Eyelids: eyelids normal Pupils: PERRL EOM: EOM intact bilaterally Neck Neck: normal visual inspection, full ROM and no lymphadenopathy Lymphatic: no lymphadenopathy noted Chest Chest: normal inspection of the chest Resp Effort & Inspection: normal respiratory effort and able to speak in complete sentences Auscultation: clear to auscultation bilaterally Cardio Jugular venous pressure: no JVD Rate: regular rate Rhythm: regular rhythm Heart Sounds: S1 normal and S2 normal GI Inspection: normal to inspection and obesity Palpation: soft, not firm, no guarding, no hepatosplenomegaly, no masses and nontender Auscultation: normal bowel sounds Back/Spine/Pelvis Back: no CVA tenderness Skin General skin exam: no rashes or lesions noted Neuro General: patient alert, patient awake, patient oriented x3, moves all extremities, no meningeal signs and no focal motor deficits Cranial Nerves: CN's II-XI intact bilaterally Cognition: normal cognition Speech: speech normal Gait: normal gait Motor: muscle tone normal throughout and strength 5/5 throughout Sensory Exam: no sensory deficits noted Extrem General: normal to inspection, full ROM and capillary refill normal Right upper extremity: full ROM; No abnormal to inspection (tremors, normal for patient worse with anxiety) Left upper extremity: full ROM; No abnormal to inspection (tremors, normal for patient worse with anxiety) Psych Appearance: grossly normal Mental Status: mental status grossly normal Speech and Movement: speech and movement normal Mood: anxious mood Affect: normal affect and anxious affect Attitude: cooperative Thought Process: normal Thought Content: other (when drinking compulsive, easily angers and self harms with SI) Insight: fair Judgment: fair DS: Data Vitals/I&O Vitals and I&O: Vital Signs Temperature 37.0 C 08/28/21 15:54 Temperature Source Tympanic 08/28/21 15:54 Pulse 85 08/28/21 15:54 Pulse Rhythm Regular 08/28/21 09:04 Pulse 80 08/26/21 06:30 Respiratory Rate 12 08/28/21 15:54 Respiratory Effort 08/28/21 09:04 Respiratory Depth Normal 08/28/21 09:04 Respiratory Pattern Normal 08/28/21 09:04 Blood Pressure 129/85 08/28/21 15:54 Blood Pressure Position Sitting 08/25/21 14:41 Pulse Oximetry 94 08/28/21 15:54 Oxygen Delivery Method Room Air 08/28/21 15:54 Oxygen Flow Rate 0 08/28/21 15:54 Pain Level 0 08/28/21 15:54 Comment 08/28/21 07:24 Intake & Output 08/27/21 08/28/21 08/28/21 23:59 11:59 23:59 Intake Total 240 / 240 Output Total 1800 / 2300 200 / 500 300 / 500 Balance -1560 / -2060 -200 / -500 -300 / -500 Intake: Oral 240 / 240 Output: Urine 1800 / 2300 200 / 500 300 / 500 Other: Urine Color Yellow Straw Yellow Urine Appearance Clear Clear Clear Urine Odor Normal Strong Comment URINE MIXED WITH LIQUID STOOL. pT voided in toilet and was incont Stool Size Moderate Stool Characteristics Liquid Brown Voiding Methods Toilet Toilet Toilet Diaper Incontinent PFSH All Active Problems (Updated 08/26/21 @ 16:58 by Katie Conteh NP) Alcohol withdrawal (Acute) Alcohol intoxication (Acute) Suicidal ideation (Acute) HTN (hypertension) (Chronic) Osteoporosis (Chronic) Tremor of both hands (Chronic) Anxiety (Chronic) Chronic liver disease (Acute) [place] 05/2019- likely r/t ETOH Phrygian cap (Acute) with thickening- gen surg consult placed Hypothyroid (Chronic) Alcohol abuse, in remission (Acute) Fatigue (Acute) Peripheral neuropathy (Acute) Cirrhosis with alcoholism (Acute) Insomnia (Acute) Depression (Chronic 04/09/15) Medical History Abnormal serum protein electrophoresis 06/23/2019- repeat levels recommended in 6 months- normal Anemia Bilateral breast cysts left-1998 right-2004 Collagenous colitis Compression fracture of lumbar spine, non-traumatic Falls Family history of diabetes mellitus in father Foot pain Gallstones HTN (hypertension) Poor appetite RLQ abdominal pain Shoulder pain, bilateral Tobacco dependence Underweight due to inadequate caloric intake Vaginal high risk HPV DNA test positive (04/09/15) Weight loss Surgical History No significant past surgical history Family History Mother Diabetes Heart disease Hyperlipidemia Stroke Father Diabetes Heart disease Hyperlipidemia Brother Diabetes Heart disease Hyperlipidemia Maternal Cousin Family hx-breast malignancy Social History Smoking/Tobacco Use Status: Current every day Tobacco Type: cigarettes Smoking risk assessment performed?: Yes Alcohol Intake: current Alcohol Intake frequency: 0-2 drinks per day Details: Quit smoking and drinking after her hospitalisation at [facility] in apr 2019 Drug use: Never Substance use type: does not use Details: drinks vodka daily Household members: other Housing: other Details: father Current gender identity: female Do you feel safe at home: Yes Do you feel safe in your relationship?: Yes Additional Social history: pt. lives with father he is elderly . she has been falling at home and he is unable to get her up
--- NOTE | 2021-08-28 16:24 | PDOC.HHF2F ---
Home Health Certification Home Health Certification: 1. Encounter Date and Reason I certify that Christa Yoon was seen by Katie Conteh on 08/28/21 and that I had a [id number]-te-[id number] encounter with this patient that meets the physician face to face encounter requirements. 2. Clinical Findings Supporting Skilled Need and Homebound Status I certify that home health services are medically necessary, include either intermittent group home and/or physical/speech therapy, and that this patient is homebound in that absences from the home require considerable and taxing effort and are infrequent or of short duration, or are attributable to the need to receive medical care. [X] (a) Attached documentation from encounter provides clinical findings supporting skilled need and homebound status (including what assistance patient requires to leave the home). The encounter with the patient was in whole, or in part, for the following medical condition, which is the primary reason for home health care: Alcohol Intoxication,Suicidal Ideation Physical Therapy: Patient would benefit from PT/OT for ?strengthening, bed mobility, transfers, gait, stairs, balance training, and use of assisting device. Homebound: 3. Certification and Authentication I certify that I composed the above information based on my clinical judgement relating to this patient's medical condition and, if applicable, clinical findings communicated to me by the NPP or inpatient physician who performed the Home Health Referral. All further orders will be obtained through ____Chapis Barton (Community Based Physician - PCP)
--- NOTE | 2021-08-28 16:31 | PDOC.CMDIS ---
- If Service Date Differs Date of service: 08/28/21 Time of Service: 16:31 LACE Index Scoring Tool - Questions: Length of Stay (in days): 3 Acuity (Admit via E.D.?): Yes Comorbidities: Liver or Renal Disease E.D. Visits: 1 - Answers: Total Score: 12 Risk of Readmission: High Risk Care Management Discharge Reason for Hospitalization: Alcohol intoxication, suicidal ideation Discharge Plan: Christa was cleared by [facility], and created a plan for safety in the community. She was medically cleared, and worked with PT who recommended HH PT. She will return home with new orders for HH PT, OT. CM coordinated a ride home via [facility] private vehicle. She will follow up with her PCP and discharge plan of care. Patient/Family Education Needs: Review discharge instructions regarding activity levels and medications, discussion of self care needs including ask me three. Services Needed at Discharge: Home Health Care Services (HH PT, OT), Transportation ([facility] PV)
--- NOTE | 2021-08-29 12:49 | PDOC.MHCN_ITS ---
Date of service: 08/28/21 Time of Service: 10:20 Mental Health Crisis Note Presenting Issue How did you arrive at the ED and why did you come: Client presented to [facility] emergency department for alcohol intoxication/ETOH withdrawal and suicidal ideation and has been on medical observation since 08/25/21. At time of admission, she reported to [facility] staff that she had thoughts of cutting her wrist and presented with a superficial laceration to left wrist. No other issues reported. Precipitating Factors Location of service: [facility], via telehealth. * General appearance and behavior: Client presented lying down in paper garments. Eye contact was fair and she was appropriate and responsive throughout interaction. * Sensorium and memory: Client appeared fully alert and oriented to time, person, place and situation. She was able to recall events leading up to [facility] admission from 08/25 and did not report any significant memory lapses. * Mood and affect: Client reported feeling better today with euthymic affect. * Thought process: Linear, intact, organized. No evidence of delusions or psychotic thought process. * Thought content: Client denied SI/HI/NSSIB at time of assessment. She reported that she only experiences fleeting thoughts of wanting to harm herself while intoxicated. She did not endorse intent or plan. * Judgment: Client may benefit from substance abuse counseling, however declined referral at this time. * Insight: Fair * Sleep/appetite: Dysregulated sleep due to acute peripheral neuropathy. Poor appetite for the past several days. * Additional: The client reported history of alcohol abuse and stated that she had lapsed for the past several days. She identified recent passing of a close friend and occasional verbal disputes with her elderly father as triggers for drinking. Disposition BEHAVIOR: Appropriate EYE CONTACT: Fair MOOD: Euthymic AFFECT: Euthymic APPETITE: No reported issues SLEEP(trouble falling/staying asleep: Sleep dysregulation due to peripheral neuropathy Plan The client has declined referral for services through [facility] at this time and will be discharged home after speaking with a assistant strength coach from [facility]. Client reported significant ambulatory concerns related to acute peripheral neuropathy as barrier to discharge home - [facility] care management will arrange for a PT consult. Psychiatric hospitalization is not indicated at this time. A proactive safety plan has been faxed to the [facility] and will be included in the client's discharge packet. The client has agreed to contact the agency as needed for additional support or has questions pertaining to service options. Signature Clinician's Name/Title: Raul Zaragoza [facility] ES clincian/QMHP
== END 2021-08-28 17:24 | disposition home or self-care (01) ==
LOC: ER 08-26 07:03 → MS 08-26 08:23
PROVIDERS: Internal Medicine; Nurse Practitioner Family; Admitting Provider General Practice; Emergency Provider Physician Assistant; PCP Nurse Practitioner; Visit Provider General Practice
DX: F10.229 Alcohol dependence with intoxication, unspecified (principal); F10.239 Alcohol dependence with withdrawal, unspecified; R45.851 Suicidal ideations; Z20.822 Contact with and (suspected) exposure to COVID-19; I10 Essential (primary) hypertension; E78.5 Hyperlipidemia, unspecified; R29.6 Repeated falls; M81.0 Age-related osteoporosis without current pathological fracture; Y90.8 Blood alcohol level of 240 mg/100 ml or more; K70.30 Alcoholic cirrhosis of liver without ascites; E03.9 Hypothyroidism, unspecified; G47.00 Insomnia, unspecified; G62.9 Polyneuropathy, unspecified; D64.9 Anemia, unspecified; F17.210 Nicotine dependence, cigarettes, uncomplicated; S61.512A Laceration without foreign body of left wrist, initial encounter; X78.9XXA Intentional self-harm by unspecified sharp object, initial encounter; F41.0 Panic disorder [episodic paroxysmal anxiety]; F32.89 Other specified depressive episodes; R25.1 Tremor, unspecified
CPT/HCPCS: 36415; 80048; 80053; 80076; 80307; 87635; 93005; 96365; 96366; 96374; 96375; 96376; 97161; 99285; 80320; 81003; 81015; 82607; 82746; 83735; 84439; 84443; 84450; 84460; 84484; 85025; 93010; 99219; 99225; G0378; J2060; J2405; J3490

== ENCOUNTER 2021-09-04 11:34 | Emergency (ER) | payer MEDICAID, SELFPAY ==
[2021-09-04 11:45] VITALS: BP 123/68; PULSE 91; RESP 16; TEMP 36.5; O2SAT 96
--- NOTE | 2021-09-04 12:19 | ED.GENADUL_ITS ---
Discharge Plan Disposition Patient Disposition: STILL A PATIENT Discharge Details Primary Care Provider: Chapis Siddiqui ED Provider: Saul Moulton Home Meds and New Rx's Prescriptions: No Action csnrrdvn-dtdz-BT-calcium-mins 9 mg iron-400 mcg tablet 1 tab PO DAILY Qty: 90 3RF ibuprofen [Motrin IB] 200 mg tablet 200 mg PO Q6H PRN0RF ascorbate calcium (vitamin C) 500 mg tablet 500 mg PO BID Qty: 60 0RF cholecalciferol (vitamin D3) 125 mcg (5,000 unit) capsule 125 mcg PO DAILY Qty: 30 0RF melatonin 3 mg capsule 3 mg PO HS Qty: 30 0RF alendronate [Fosamax] 70 mg tablet 70 mg PO QWEEK Qty: 13 4RF budesonide 3 mg capsule,delayed,extend.release 3 mg PO DAILY PRN (Reason: diarrhea) Qty: 60 3RF Rx Instructions: take 3 caps as needed carvedilol 6.25 mg tablet 6.25 mg PO BID Qty: 180 4RF duloxetine 60 mg capsule,delayed release(DR/EC) 60 mg PO DAILY Qty: 90 4RF folic acid 1 mg tablet 1 mg PO DAILY Qty: 90 3RF gabapentin 300 mg capsule 600 mg PO QHS Qty: 90 3RF levothyroxine 50 mcg capsule 50 mcg PO DAILY Qty: 90 3RF mirtazapine 15 mg tablet 15 mg PO QHS Qty: 90 4RF thiamine HCl (vitamin B1) 100 mg tablet 100 mg PO DAILY Qty: 90 3RF fluoxetine 20 mg capsule 20 mg PO DAILY Qty: 90 3RF propranolol 60 mg capsule,extended release 24 hr 60 mg PO DAILY Qty: 90 3RF ferrous sulfate 15 mg iron (75 mg)/mL Drops PO 0RF Label Comments: pt .unsure of dose gabapentin 300 mg capsule 300 mg PO TID Qty: 40 0RF Rx Instructions: 600 mg in the am; 300 mg @ 1400h and 300 mg @ 2000h. Medical Decision Making <Kate Corcoran - Last Filed: 09/04/21 15:13> 60-year-old female presents to the ER with chief complaint of suicidal ideation and alcohol abuse. Patient was admitted there approximately a week ago for similar. She reports that she was discharged last Thursday went home and began drinking again 2 days later. She states I do not care if I live or . She is denies any plan. Last EtOH intake was approximately 3 hours prior to arrival she reports drinking half a pint of liquor. Labs ordered including acetaminophen, salicylate, ethyl alcohol level, TSH, mental health evaluation and sitter. Patient instructed to get into a prescription of ibuprofen. IV ordered due to the risk of alcohol withdrawal. Last EtOH intake was 3 hours prior to arrival. Patient reports that she normally drinks approximately half a pint of liquor when she can. Mental health evaluation, sitter ordered. Patient is in line of sight of the nurses station. 1257: other sports coach or instructor at bedside for discussion and evaluation with patient. Apparently patient declined services with her last initial visit she now agrees to follow-up phone calls and to assist with assistance in the community for recovery. 1327: CBC shows no leukocytosis, platelets 413, sodium 147, potassium 3.9, chloride 109, TSH 2.39 which is within normal limits. Urinalysis shows no evidence for urinary tract infection. Urine drug screen is negative Tylenol salicylate level within normal limits. Ethyl alcohol is 261. 1438: Patient reevaluation. She is complaining of anxiety and is requesting something to eat. Dietary tray ordered. No evidence of tremors noted on my reevaluation. 1511: Care is to be handed off to oncoming provider Dr. Kenney FLETCHER pending Etoh metabolisim and re-eval. Possible MH eval for suicidal ideation. <MEAGHAN Solomon - Last Filed: 09/04/21 16:07> 60-year-old female presents to the ER with chief complaint of suicidal ideation and alcohol abuse. Patient was admitted there approximately a week ago for similar. She reports that she was discharged last Thursday went home and began drinking again 2 days later. She states I do not care if I live or . She is denies any plan. Last EtOH intake was approximately 3 hours prior to arrival she reports drinking half a pint of liquor. Labs ordered including acetaminophen, salicylate, ethyl alcohol level, TSH, mental health evaluation and sitter. Patient instructed to get into a prescription of ibuprofen. IV ordered due to the risk of alcohol withdrawal. Last EtOH intake was 3 hours prior to arrival. Patient reports that she normally drinks approximately half a pint of liquor when she can. Mental health evaluation, sitter ordered. Patient is in line of sight of the nurses station. 1257: other sports coach or instructor at bedside for discussion and evaluation with patient. Apparently patient declined services with her last initial visit she now agrees to follow-up phone calls and to assist with assistance in the community for recovery. 1327: CBC shows no leukocytosis, platelets 413, sodium 147, potassium 3.9, chloride 109, TSH 2.39 which is within normal limits. Urinalysis shows no evidence for urinary tract infection. Urine drug screen is negative Tylenol salicylate level within normal limits. Ethyl alcohol is 261. 1438: Patient reevaluation. She is complaining of anxiety and is requesting something to eat. Dietary tray ordered. No evidence of tremors noted on my reevaluation. 1511: Care is to be handed off to oncoming provider Dr. Kenney FLETCHER pending Etoh metabolisim and re-eval. Possible MH eval for suicidal ideation. 1530 Roverto Aguilar PA-C This patient was in the signout queue upon the start of my shift; however, the patient was not signed out to me and I had no direct interaction with the patient nor did I taken her medical care during this visit. HPI <Kate Corcoran - Last Filed: 09/04/21 15:13> General Date/Time Provider Initiated Documentation: 09/04/21 11:53 . Limitations to Documentation: no limitations . Information obtained by: patient, family, RN notes reviewed and old records reviewed . HPI Narrative: 60-year-old female presents to the ER with chief complaint of suicidal ideation and alcohol abuse. Patient was admitted there approximately a week ago for similar. She reports that she was discharged last Thursday went home and began drinking again 2 days later. She states I do not care if I live or . She is denies any plan. Last EtOH intake was approximately 3 hours prior to arrival she reports drinking half a pint of liquor. She reports feeling depressed since mom a few months ago. She reports blurry vision and intermittent hallucinations none currently. She does not have any tremors noted on initial exam. Denies any headache, chest pain, shortness of breath, nausea vomiting. She does endorse diarrhea denies any hematochezia no blood in her stool no dark stools. She reports she does have a past medical history of gallstones and has a PCP appointment tomorrow. Other past medical history includes hypertension, anemia. Related Data Home Medications Medication Instructions Recorded Confirmed ferrous sulfate 15 mg iron (75 PO 02/08/20 04/04/21 mg)/mL oral drops multivitamin-iron 9 mg-folic acid 1 tab PO DAILY #90 tab 02/23/20 09/04/21 400 mcg-calcium and minerals tablet ibuprofen 200 mg tablet (Motrin IB) 200 mg PO Q6H PRN 03/16/20 09/04/21 ascorbate calcium (vitamin C) 500 500 mg PO BID #60 tab 01/15/21 09/04/21 mg tablet cholecalciferol (vitamin D3) 125 125 mcg PO DAILY #30 cap 01/15/21 09/04/21 mcg (5,000 unit) capsule melatonin 3 mg capsule 3 mg PO HS #30 cap 01/15/21 09/04/21 alendronate 70 mg tablet (Fosamax) 70 mg PO QWEEK #13 tab 04/04/21 09/04/21 budesonide 3 mg 3 mg PO DAILY PRN #60 cap 04/04/21 09/04/21 capsule,delayed,extended release carvedilol 6.25 mg tablet 6.25 mg PO BID #180 tab 04/04/21 09/04/21 duloxetine 60 mg capsule,delayed 60 mg PO DAILY #90 cap 04/04/21 09/04/21 release folic acid 1 mg tablet 1 mg PO DAILY #90 tab 04/04/21 09/04/21 gabapentin 300 mg capsule 600 mg PO QHS #90 cap 04/04/21 09/04/21 levothyroxine 50 mcg capsule 50 mcg PO DAILY #90 cap 04/04/21 09/04/21 mirtazapine 15 mg tablet 15 mg PO QHS #90 tab 04/04/21 09/04/21 thiamine HCl (vitamin B1) 100 mg 100 mg PO DAILY #90 tab 04/04/21 09/04/21 tablet fluoxetine 20 mg capsule 20 mg PO DAILY #90 cap 06/26/21 09/04/21 propranolol 60 mg capsule,24 60 mg PO DAILY #90 cap 06/26/21 09/04/21 hr,extended release gabapentin 300 mg capsule 300 mg PO TID #40 cap 08/28/21 09/04/21 Previous Rx's Medication Instructions Recorded multivitamin-iron 9 mg-folic acid 1 tab PO DAILY #90 tab 02/23/20 400 mcg-calcium and minerals tablet ascorbate calcium (vitamin C) 500 500 mg PO BID #60 tab 01/15/21 mg tablet cholecalciferol (vitamin D3) 125 125 mcg PO DAILY #30 cap 01/15/21 mcg (5,000 unit) capsule melatonin 3 mg capsule 3 mg PO HS #30 cap 01/15/21 alendronate 70 mg tablet (Fosamax) 70 mg PO QWEEK #13 tab 04/04/21 budesonide 3 mg 3 mg PO DAILY PRN #60 cap 04/04/21 capsule,delayed,extended release carvedilol 6.25 mg tablet 6.25 mg PO BID #180 tab 04/04/21 duloxetine 60 mg capsule,delayed 60 mg PO DAILY #90 cap 04/04/21 release folic acid 1 mg tablet 1 mg PO DAILY #90 tab 04/04/21 gabapentin 300 mg capsule 600 mg PO QHS #90 cap 04/04/21 levothyroxine 50 mcg capsule 50 mcg PO DAILY #90 cap 04/04/21 mirtazapine 15 mg tablet 15 mg PO QHS #90 tab 04/04/21 thiamine HCl (vitamin B1) 100 mg 100 mg PO DAILY #90 tab 04/04/21 tablet fluoxetine 20 mg capsule 20 mg PO DAILY #90 cap 06/26/21 propranolol 60 mg capsule,24 60 mg PO DAILY #90 cap 06/26/21 hr,extended release gabapentin 300 mg capsule 300 mg PO TID #40 cap 08/28/21 Allergies Allergy/AdvReac Type Severity Reaction Status Date / Time No Known Allergies Allergy Verified 09/04/21 11:53 General Stated Complaint: PsychEval LILIYA: 2 Review of Systems <Kate Corcoran - Last Filed: 09/04/21 15:13> All systems reviewed & are unremarkable except as noted in HPI and below Constitutional Constitutional: Reports as per HPI, Denies body ache(s), Denies chills, Reports frequent falls (In past, none this week), Denies headache(s) and Reports weight gain Eyes Eyes: Reports blurry vision and Reports other visual disturbances ENT Ears, Nose, Mouth, and Throat: Reports system reviewed and no additional complaints, except as documented, Denies headache(s) and Reports disequilibrium Cardiovascular Cardiovascular: Denies chest pain, Denies edema and Denies dyspnea Respiratory Respiratory: Denies cough, Denies excessive phlegm production and Denies dyspnea Gastrointestinal Gastrointestinal: Denies melena, Denies bloating, Denies hematochezia, Denies change in stool character, Denies fecal incontinence, Reports diarrhea, Denies nausea and Denies vomiting Genitourinary Genitourinary: Denies difficulty voiding and Denies dysuria Integumentary/Breasts Skin/Breast: Denies lesions, Denies sores and Denies wounds Neurologic Neurologic: Reports abnormal speech (Slighlty slurred, appears intoxicated), Reports confusion (Under the influence), Reports frequent falls (In past, none this week), Denies headache(s), Denies tremor(s) (None currently) and Reports di sequilibrium Psychiatric Psychiatric: Reports anxiety, Reports confusion (Under the influence), Reports depression, Reports visual hallucinations (Reports visual hallucinations of seeing a little girl), Denies homicidal ideation and Reports suicidal ideation (States I do not care if I live or . ) [facility] <Kate Corcoran - Last Filed: 09/04/21 15:13> All Active Problems Alcohol withdrawal (Acute) HTN (hypertension) (Chronic) Osteoporosis (Chronic) Tremor of both hands (Chronic) Anxiety (Chronic) Chronic liver disease (Acute) [place] 05/2019- likely r/t ETOH Phrygian cap (Acute) with thickening- gen surg consult placed Hypothyroid (Chronic) Alcohol abuse, in remission (Acute) Fatigue (Acute) Peripheral neuropathy (Acute) Cirrhosis with alcoholism (Acute) Insomnia (Acute) Depression (Chronic 04/09/15) Medical History Abnormal serum protein electrophoresis 06/23/2019- repeat levels recommended in 6 months- normal Anemia Bilateral breast cysts left-1998 right-2004 Collagenous colitis Compression fracture of lumbar spine, non-traumatic Falls Family history of diabetes mellitus in father Foot pain Gallstones HTN (hypertension) Poor appetite RLQ abdominal pain Shoulder pain, bilateral Tobacco dependence Underweight due to inadequate caloric intake Vaginal high risk HPV DNA test positive (04/09/15) Weight loss Surgical History No significant past surgical history Family History Mother Diabetes Heart disease Hyperlipidemia Stroke Father Diabetes Heart disease Hyperlipidemia Brother Diabetes Heart disease Hyperlipidemia Maternal Cousin Family hx-breast malignancy Social History Smoking/Tobacco Use Status: Current every day Tobacco Type: cigarettes Smoking risk assessment performed?: Yes Alcohol Intake: current Alcohol Intake frequency: 0-2 drinks per day Details: Quit smoking and drinking after her hospitalisation at [facility] [place] in apr 2019 Drug use: Never Substance use type: does not use Details: drinks vodka daily Household members: other Housing: other Details: father Current gender identity: female Do you feel safe at home: Yes Do you feel safe in your relationship?: Yes Additional Social history: pt. lives with father he is elderly . she has been falling at home and he is unable to get her up Female Reproductive History Menstrual Menopause type: natural Exam <Kate Corcoran - Last Filed: 09/04/21 15:13> Const General: cooperative, comfortable, well developed, well groomed, anxious, intoxicated appearing and well hydrated Nutritional Appearance: average body habitus and well nourished Orientation: alert, awake and confused (Slightly) Limitations: behavioral limitations [facility] Head: normal to inspection, no palpable skull fracture, normocephalic, atraumatic and no scalp tenderness Ears: hearing grossly normal bilaterally and external ears normal General nose exam: external nose normal Face and sinus: normal facial exam Mouth: oral mucosae normal Teeth and gingiva: dentition normal Eyes General: appearance normal, both eyes and all related structures Alignment and Position: alignment normal Periorbital: periorbital findings normal Eyelids: eyelids normal Conjunctivae: conjunctivae normal Sclera: sclerae normal Cornea: corneas normal Pupils: PERRL EOM: No nystagmus Neck Neck: normal visual inspection Chest Chest: normal inspection of the chest and no crepitus Resp Effort & Inspection: normal respiratory effort, able to speak in complete sentences, normal respiratory pattern, no audible wheezes and not labored Auscultation: clear to auscultation bilaterally Cardio Jugular venous pressure: no JVD Rate: regular rate Rhythm: regular rhythm Heart Sounds: S1 normal and S2 normal Pulses: radial pulses present and dorsalis pedis present GI Inspection: normal to inspection, no edema and non-distended Palpation: soft, no guarding, no masses and nontender Auscultation: normal bowel sounds Back/Spine/Pelvis Back: no CVA tenderness Cervical Spine: normal cervical lordosis Thoracic/Lumbar Spine: thoracic and lumbar spine normal to inspection Pelvis: no pain with anterior-posterior compression Skin General skin exam: no rashes or lesions noted Lesions: no lesions Rashes: no rashes Neuro General: patient alert, patient awake, oriented Patient Orientation: Person, Place and Time, moves all extremities, no meningeal signs, no focal motor deficits and CN's II-XI intact bilaterally Cranial Nerves: facial strength normal, tongue midline and no nystagmus Gait: staggering Motor: muscle tone normal throughout Sensory Exam: no sensory deficits noted Psych Appearance: well kempt Speech and Movement: slurred speech Mood: anxious mood Affect: normal affect and indifferent Attitude: cooperative Thought Process: illogical Thought Content: hallucinations visual, no homicidality and suicidality Insight: fair Judgment: fair Course <Kate Corcoran - Last Filed: 09/04/21 15:13> Vital Signs Vital signs: Vital Signs Temperature 36.5 C 09/04/21 11:45 Pulse 91 H 09/04/21 11:45 Respiratory Rate 16 09/04/21 11:45 Blood Pressure 123/68 09/04/21 11:45 Pulse Oximetry 96 09/04/21 11:45 Temperature 36.5 C 09/04/21 11:45 Pulse 91 H 09/04/21 11:45 Respiratory Rate 16 09/04/21 11:45 Respiratory Effort 09/04/21 11:55 Blood Pressure 123/68 09/04/21 11:45 Pulse Oximetry 96 09/04/21 11:45 Sign Out <Kate Corcoran - Last Filed: 09/04/21 15:13> Sign Out Data: Sign Out Comment: Pending ETOH metabolisim, re-assessment and Possible Mental Health Eval. At 1347 ETOH level was 261. Reports suicidality without a plan. Admitted 1.5 weeks ago and discharged to home, at that time she refused rehab services. Now she is agreeable and has been seen by engine head repairer. Hemodynamically stable, no evidence for Withdrawal at this time. She is tolera ting PO without difficulty. Last updated by Kate Corcoran at 09/04/21 15:10 PAWSS <Kate Corcoran - Last Filed: 09/04/21 15:13> Pt Consumed Any Amount of Alcohol Within the Last 30 days OR had positive JUSTIN Upon Admission: Yes Have you Been Recently Intoxicated or Drunk Within the Last 30 days?: Yes Have you Ever Experienced Previous Episodes of Alcohol Withdrawal?: Yes Have you ever Experienced Withdrawal Seizures?: No Have you ever Experienced Delirium Tremens(DT)s?: No Have you ever undergone Alcohol Rehabilitation Treatment (i.e, inpt ot outpatient treatment programs)?: Yes Have you ever Experienced Blackouts?: Yes Have you ever Combined Alcohol with other Downers within the last 90 days?: No Have you ever Combined Alcohol with any other Substance of Abuse during the last 90 days?: No Positive Blood Alcohol level on Presentation? [PCS.BAL]: Yes Evidence of Increased Autonomic Activity (i.e. HR>120, tremor, sweating, agitation, nausea)?: No Result: 5 <MEAGHAN Solomon - Last Filed: 09/04/21 16:07> Result: 5
[2021-09-04 12:31] LABS: Bilirubin Negative (Negative); Blood Negative (Negative); Clarity Clear (Clear); Glucose Negative (Negative); Ketones Negative (Negative); Leukocyte Esterase Negative (Negative); Nitrite Negative (Negative); Urobilinogen 0.2 EU/dL (Up TO 0.2); pH 5.5 (5-8)
[2021-09-04 12:45] LABS: *AMPHETAMINES SCREEN URINE Negative (Negative); *BARBITURATES SCREEN URINE Negative (Negative); *BENZODIAZEPINES SCREEN URINE Negative (Negative); Cannabinoids THC Negative (Negative); Cocaine Screen,Urine Negative (Negative); METHADONE URINE SCREEN Negative (Negative); OPIATES URINE SCREEN Negative (Negative)
[2021-09-04 12:52] LABS: Tricyclic Antidepressants Negative (Negative)
[2021-09-04 13:05] LABS: Abs Immature Grans 0.06 10^3/uL (0.0-0.06); Absolute Basophil Count 0.14 10^3/uL (0.0-0.2); Absolute Eosinophil Count 0.21 10^3/uL (0.0-0.7); Absolute Lymphocyte Count 3.02 10^3/uL (1.2-3.4); Absolute Monocyte Count 0.94 10^3/uL (0.1-0.8); Absolute Neutrophil Count 2.08 10^3/uL (1.2-6.7); Basophils % 2.2; Eosinophils % 3.3; HCT 39.8 % (36.0-46.0); HGB 13.2 g/dL (11.2-15.7); Immature Grans % 0.9; Lymphocytes % 46.8; MCH 33.9 pg (27.0-33.0); MCHC 33.2 % (32.0-36.0); MCV 102 fL (80-95); MPV 10.8 fL (8.0-11.0); Monocytes % 14.6; Neutrophils % 32.2; Platelet Count 413 10^3/uL (130-400); RBC 3.89 10^6/uL (3.93-5.22); RDW 15.4 % (11.7-14.6); RDW-SD 58.4 fL; WBC 6.45 10^3/uL (4.4-10.8)
--- NOTE | 2021-09-04 13:06 | NUR.NOTE ---
Pt unable to remove two sets of earrings from bilateral ears. RN unable to remove as well. Pt reports I haven't been able to get them off in years.
--- NOTE | 2021-09-04 13:35 | NUR.NOTE ---
Pt provided crackers and water. Pt denies any N/V and is sitting calmly in bed speaking with family member. Pt appreciative and cooperative.
[2021-09-04 14:02] LABS: Acetaminophen < 2 ug/mL (10-30); Salicylate 5.5 mg/dL (<2.8)
[2021-09-04 14:03] LABS: ALT 57 U/L (14-59); AST 37 U/L (15-37); Albumin 3.6 g/dL (3.4-5.0); Alkaline Phosphatase 103 U/L (46-116); Anion Gap 9.4 mmol/L (3-11); BUN 14 mg/dL (7-18); Bilirubin, Total 0.1 mg/dL (0.2-1.0); CO2 28.6 mmol/L (21.0-32.0); CREATININE 0.7 mg/dL (0.55-1.02); Calcium 8.5 mg/dL (8.5-10.1); Chloride 109 mmol/L (98-107); Glucose 85 mg/dL (74-106); Potassium 3.9 mmol/L (3.5-5.1); Sodium 147 mmol/L (136-145); TSH (W/Ref FT4) 2.39 uIU/mL (0.36-3.74); Total Protein 7.2 g/dL (6.4-8.2)
[2021-09-04 15:00] VITALS: BP 112/74; PULSE 92; TEMP 36.6; O2SAT 91
--- NOTE | 2021-09-04 15:53 | PDOC.CMSAFED ---
- If Service Date Differs Date of service: 09/04/21 Time of Service: 15:53 Care Management Safety Plan Status: Voluntary - Reason for Wait Reason for Wait: Medical Clearance CM will respond to ED to assess patient after patient has been medically cleared and assessed by screener. If screener deems patient meets criteria for psychiatric stabilization CM will facilitate interdepartmental huddle with [facility] screener for safety planning considerations and meet with patient to review [facility] policy and safety plan, establish individual wishes for treatment and maintain patient rights. In the interim; please note safety plan below to guide patient care while awaiting further assessment in the ED. SAFETY PLAN: 1. Will remain on suicide precautions and in paper clothes. 2. Will remain in room under direct supervision of one-on-one staff at all times provided by [employer], [employer], [employer] parts casting machine operator. 3. May have paper cups, plates, finger foods as well as a cardboard spoon with which to eat meals. 4. Follow [facility] Management of the Admitted Behavioral Health Patient policy. 5. Personal care: Comfort bath system only at this time. 6. Bathroom privileges: with escort in ED. Available in room without limitation on Med/Surg. 6. No personal belongings at this time; per RN discretion. 7. No visitors at this time. 8. Phone contact limited to legal contact at this time. 9. Activities: Music tablet per RN discretion. Med/Surg: Television and remote available at RN discretion. 10. Due to VOLUNTARY status, if patient wishes to leave [facility], staff will contact [facility] Crisis Screener ([phone]) and On-Call Proposition Player ([phone]) as soon as possible. In the event of elopement, notify [facility] Police ([phone]). If deemed appropriate for inpatient psychiatric care, safety plan will be established with patient, and care team, to adhere to patient goals, identify restrictions based on behavioral status, address nutrition, and determine allowed personal belongings, tools for hygiene and personal care. As well plan will determine level of activity including ambulation, level of supervision, visitors, and determine privileges based on level of acuity, behaviors and level of engagement by patient.
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
== END 2021-09-04 16:49 | disposition home or self-care (01) ==
PROVIDERS: Registered Nurse Emergency; Emergency Provider Emergency Medicine; PCP Nurse Practitioner
DX: F10.120 Alcohol abuse with intoxication, uncomplicated (principal); Y90.8 Blood alcohol level of 240 mg/100 ml or more; R45.851 Suicidal ideations; F41.9 Anxiety disorder, unspecified
CPT/HCPCS: 80053; 80307; 99285; 80320; 80329; 81003; 84443; 85025; 99283

== ENCOUNTER → 2022-03-28 00:06 | Outpatient (CLI) | payer MEDICAID, SELFPAY ==
--- NOTE | 2022-03-28 07:00 | DI.MAMMO_ITS ---
Exam(s) MAMMO SCREENING EXAM: MAMMO SCREENING CLINICAL HISTORY: screening Z12.39 TECHNIQUE: Mammograms were interpreted according to the usual protocol including computer analysis w [employer] CAD system, tomosynthesis and C-view imaging. COMPARISON: FINDINGS: The breasts are heterogeneously dense. No dominant mass or clumped microcalcification is identified in either breast. The current examination is compared with previous examination of January 2020 an d there has been no gross interval change in appearance in comparison with the prior study. IMPRESSION: No specific evidence of malignancy at this time. Routine screening examinations are suggested at yea rly intervals due to the family history of breast carcinoma. BI-RADS Category 1 - Negative Breast Density - Category C - Heterogeneously dense
== END ==
PROVIDERS: PCP Nurse Practitioner Family; Visit Provider Nurse Practitioner
DX: Z12.31 Encounter for screening mammogram for malignant neoplasm of breast (principal); R92.8 Other abnormal and inconclusive findings on diagnostic imaging of breast
CPT/HCPCS: 77063; 77067

== ENCOUNTER 2022-05-06 04:05 | Outpatient (CLI) | payer MEDICAID, SELFPAY ==
[2022-05-06 11:30] LABS: Abs Immature Grans 0.17 10^3/uL (0.0-0.06); Absolute Eosinophil Count 0.67 10^3/uL (0.0-0.7); Absolute Lymphocyte Count 3.09 10^3/uL (1.2-3.4); Absolute Monocyte Count 1.18 10^3/uL (0.1-0.8); Basophils % 0.9; Eosinophils % 4.9; HCT 36.8 % (36.0-46.0); HGB 11.7 g/dL (11.2-15.7); Immature Grans % 1.2; Lymphocytes % 22.5; MCH 30.5 pg (27.0-33.0); MCHC 31.8 % (32.0-36.0); MCV 96 fL (80-95); Monocytes % 8.6; Neutrophils % 61.9; RBC 3.83 10^6/uL (3.93-5.22); RDW 13.5 % (11.7-14.6); WBC 13.74 10^3/uL (4.4-10.8)
[2022-05-06 11:31] LABS: Absolute Basophil Count 0.12 10^3/uL (0.0-0.2); Absolute Neutrophil Count 8.51 10^3/uL (1.2-6.7)
[2022-05-06 11:40] LABS: Hemoglobin A1C 6.2 % (<5.7)
[2022-05-06 12:02] LABS: Platelet Count 766 10^3/uL (130-400)
[2022-05-06 12:55] LABS: ALT 17 U/L (14-59); AST 13 U/L (15-37); Alkaline Phosphatase 98 U/L (46-116); Anion Gap 3.3 mmol/L (3-11); BUN 16 mg/dL (7-18); Bilirubin, Total 0.2 mg/dL (0.2-1.0); CO2 28.7 mmol/L (21.0-32.0); CREATININE 0.9 mg/dL (0.55-1.02); Calcium 8.7 mg/dL (8.5-10.1); Calculated LDL 147 mg/dL (<100); Chloride 98 mmol/L (98-107); Cholesterol 259 mg/dL (<200); Estimated GFR 72.28 (mL/min/1.73m2); Folate 12.4 ng/mL (8.6-20.0); Glucose 97 mg/dL (74-106); HDL Cholesterol 49 mg/dL (40-60); Potassium 4.9 mmol/L (3.5-5.1); Sodium 130 mmol/L (136-145); Total Protein 6.4 g/dL (6.4-8.2); Triglyceride 319 mg/dL (<150); Vitamin B12 348 pg/mL (193-986)
[2022-05-06 13:32] LABS: Iron 65 ug/dL (50-170); Total Iron Binding Capacity 308 ug/dL (250-450)
[2022-05-06 13:44] LABS: Ferritin 274 ng/mL (8-252)
[2022-05-06 15:22] LABS: FREE T4 0.96 ng/dL (0.76-1.46)
== END 2022-05-06 04:06 | disposition home or self-care (01) ==
LOC: LBO 04:05
PROVIDERS: PCP Nurse Practitioner Family; Visit Provider Nurse Practitioner Family
DX: K76.9 Liver disease, unspecified (principal); R41.3 Other amnesia; G62.9 Polyneuropathy, unspecified; E03.9 Hypothyroidism, unspecified; R53.83 Other fatigue; R79.89 Other specified abnormal findings of blood chemistry
CPT/HCPCS: 36415; 80053; 80061; 82607; 82728; 82746; 83036; 83540; 83550; 84439; 84443; 85025

== ENCOUNTER 2022-05-20 03:36 | Outpatient (CLI) | payer MEDICAID, SELFPAY ==
[2022-05-20 11:36] LABS: Abs Immature Grans 0.03 10^3/uL (0.0-0.06); Absolute Basophil Count 0.11 10^3/uL (0.0-0.2); Absolute Eosinophil Count 0.67 10^3/uL (0.0-0.7); Absolute Lymphocyte Count 2.72 10^3/uL (1.2-3.4); Absolute Monocyte Count 1.16 10^3/uL (0.1-0.8); Absolute Neutrophil Count 4.83 10^3/uL (1.2-6.7); Basophils % 1.2; HCT 36.6 % (36.0-46.0); HGB 11.6 g/dL (11.2-15.7); Immature Grans % 0.3; Lymphocytes % 28.6; MCH 30.3 pg (27.0-33.0); MCHC 31.7 % (32.0-36.0); MCV 96 fL (80-95); Monocytes % 12.2; Neutrophils % 50.7; Platelet Count 349 10^3/uL (130-400); RBC 3.83 10^6/uL (3.93-5.22); RDW 14.3 % (11.7-14.6); RDW-SD 49.8 fL; WBC 9.52 10^3/uL (4.4-10.8)
== END 2022-05-20 03:37 | disposition home or self-care (01) ==
LOC: LBO 03:36
PROVIDERS: PCP Nurse Practitioner Family; Visit Provider Nurse Practitioner Family
DX: D72.829 Elevated white blood cell count, unspecified (principal)
CPT/HCPCS: 36415; 85025

== ENCOUNTER 2022-08-06 16:11 | Outpatient (REF) | payer MEDICAID, SELFPAY ==
[2022-08-06 13:00] LABS: Iron 56 ug/dL (50-170)
[2022-08-06 13:02] LABS: HCT 39.8 % (36.0-46.0); HGB 13.6 g/dL (11.2-15.7); MCH 31.2 pg (27.0-33.0); MCHC 34.2 % (32.0-36.0); MCV 91 fL (80-95); MPV 10.5 fL (8.0-11.0); Platelet Count 379 10^3/uL (130-400); RBC 4.36 10^6/uL (3.93-5.22); RDW 13.2 % (11.7-14.6); RDW-SD 44.5 fL; WBC 10.21 10^3/uL (4.4-10.8)
[2022-08-06 13:16] LABS: Ferritin 99 ng/mL (8-252)
== END 2022-08-06 16:12 | disposition home or self-care (01) ==
LOC: LBN 16:11
PROVIDERS: PCP Nurse Practitioner Family; Visit Provider Nurse Practitioner Family
DX: D75.839 Thrombocytosis, unspecified (principal)
CPT/HCPCS: 85027; 82728; 83540

== ENCOUNTER 2023-07-08 04:59 | Outpatient (CLI) | payer MEDICAID, SELFPAY ==
[2023-07-08 12:52] LABS: ALT 26 U/L (14-59); AST 17 U/L (15-37); Albumin 3.7 g/dL (3.4-5.0); Alkaline Phosphatase 102 U/L (46-116); Anion Gap 9.8 mmol/L (3-11); BUN 12 mg/dL (7-18); Bilirubin, Total 0.4 mg/dL (0.2-1.0); CO2 27.2 mmol/L (21.0-32.0); CREATININE 0.9 mg/dL (0.55-1.02); Calcium 9.1 mg/dL (8.5-10.1); Chloride 102 mmol/L (98-107); Estimated GFR 71.83 (mL/min/1.73m2); Glucose 113 mg/dL (74-106); Potassium 3.9 mmol/L (3.5-5.1); Sodium 139 mmol/L (136-145); TSH (W/Ref FT4) 1.89 uIU/mL (0.36-3.74); Total Protein 7.2 g/dL (6.4-8.2)
[2023-07-08 13:07] LABS: Hemoglobin A1C 5.9 % (<5.7)
[2023-07-08 18:15] LABS: Hepatitis C Ab w Rflx HCV PCR Negative (Negative)
[2023-07-08 18:31] LABS: HIV-1/2 Ag & Ab Screen Negative (Negative)
== END 2023-07-08 05:00 | disposition home or self-care (01) ==
LOC: LOS 05:00
PROVIDERS: PCP Nurse Practitioner Family; Visit Provider Nurse Practitioner Family
DX: K76.9 Liver disease, unspecified (principal); Z11.4 Encounter for screening for human immunodeficiency virus [HIV]; R73.03 Prediabetes; Z11.59 Encounter for screening for other viral diseases; E03.9 Hypothyroidism, unspecified
CPT/HCPCS: 36415; 80053; 86803; 87389; 83036; 84443

== ENCOUNTER 2024-11-23 16:57 | Emergency (ER) | payer SELFPAY ==
[2024-11-23 16:59] VITALS: BP 162/73; PULSE 99; RESP 15; TEMP 36.7; O2SAT 100
[2024-11-23 17:06] VITALS: BP 162/73; PULSE 99; RESP 15; TEMP 36.7; O2SAT 100
[2024-11-23 17:15] VITALS: BP 162/73; PULSE 99; O2SAT 99
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
[2024-11-23 17:47] VITALS: BP 129/62; PULSE 100; O2SAT 100
[2024-11-23 18:17] VITALS: BP 122/57; PULSE 99; RESP 16; O2SAT 96
== END 2024-11-23 18:31 | disposition home or self-care (01) ==
LOC: ER 17:56
PROVIDERS: Emergency Provider Physician Assistant; PCP Nurse Practitioner Family
DX: Z04.1 Encounter for examination and observation following transport accident (principal); V48.6XXA Car passenger injured in noncollision transport accident in traffic accident, initial encounter
CPT/HCPCS: 99283